=== PATIENT | female | born 1950 | race Caucasian/White ===

== ENCOUNTER 2021-08-30 11:05 | Outpatient (CLI) | payer MEDICARE, SELFPAY ==
[2021-08-30] MEDS: TETRACAINE 0.5% OPHTH 1 DROP EYE-RIGHT ×2 (11:16→11:43)
[2021-08-30] MEDS: BRIMONIDINE TARTRATE 0.2% OPHTH 1 DROP EYE-RIGHT ×2 (11:18→12:00)
[2021-08-30 11:23] VITALS: BP 138/68; RESP 16; O2SAT 97
--- NOTE | 2021-08-30 12:31 | P.PCN_ITS ---
Procedure Note Will [facility] bill your pro fee for this procedure?: Yes Procedure Description: SURGEON: Katja Gunter MD PREOPERATIVE DIAGNOSIS: Posterior capsular opacity, right eye POSTOPERATIVE DIAGNOSIS: Posterior capsular opacity, right eye PROCEDURE: YAG laser capsulotomy, right eye ANESTHESIA: Topical. ESTIMATED BLOOD LOSS: None PATHOLOGY SPECIMEN: None COMPLICATIONS: None INDICATIONS: See consult note for details. The risks, benefits and alternatives of the procedure were explained to the patient, who elected to proceed and signed informed consent to do so. PROCEDURE: The patient was brought to the pre-holding area where the right eye was identified as the operative eye. I placed my initials above this eye. The patient received 2 sets of 1 drop of 0.5% tetracaine and 1 drop of 1% tropicamide. They also received 1 drop of 0.2% brimonidine. They received 1 drop of 0.5% tetracaine immediately prior to bringing them back for the procedure. The patient was then brought to the procedure room where the right eye was again identified as the operative eye. A YAG Joel capsulotomy lens was placed on the eye. The laser was administered using a total number of 9 shots with an energy of 2.4 mJ per shot for a total energy of 22 mJ. The patient tolerated the procedure well. DISPOSITION: The patient was taken back to the pre-holding area and given 1 drop of 0.2% brimonidine in the right eye. They were discharged to home in stable condition. The patient was instructed to call me or go to the emergency department with any sudden change, including dramatic loss of vision, severe pain in the eye or eyebrow region, nausea, or vomiting. The patient was instructed to use the 0.2% brimonidine 1 drop 2 times a day in the right eye for 1 week. The patient will follow up in the clinic in 1-2 weeks. Surgeon: Katja Gunter MD
== END 2021-08-30 12:07 | disposition home or self-care (01) ==
LOC: OP CLINIC 11:05 → EYE PRC 11:09
PROVIDERS: PCP Family Medicine; Visit Provider Ophthalmology
DX: H26.9 Unspecified cataract (principal)
CPT/HCPCS: 66821; A9270

== ENCOUNTER 2021-09-14 01:21 | Inpatient (IN) | payer MEDICARE, SELFPAY ==
[2021-09-14] VITALS (22 sets, daily range): BP systolic 97–153; BP diastolic 35–87; PULSE 63–92; RESP 10–26; TEMP 36.3–38.3; O2SAT 88–98; BMI 32.4; BMI 33.6
--- NOTE | 2021-09-14 01:44 | ED_ITS ---
HPI - Chest Pain General Time Seen by Provider: 14:00 <Annmarie Ac MD - Last Filed: 09/14/21 06:39> Date Seen: 09/14/21 <Annmarie Ac MD - Last Filed: 09/14/21 06:39> Chief Complaint: Chest Pain <Annmarie Ac MD - Last Filed: 09/14/21 06:39> Stated Complaint: Burning sensation in chest <Annmarie Ac MD - Last Filed: 09/14/21 06:39> Time Seen by Provider: 09/14/21 01:27 <Annmarie Ac MD - Last Filed: 09/14/21 06:39> Source: patient, RN notes reviewed and old records reviewed <Annmarie carey MD - Last Filed: 09/14/21 06:39> Mode of arrival: ambulatory <Annmarie Ac MD - Last Filed: 09/14/21 06:39> Limitations: no limitations <Annmarie Ac MD - Last Filed: 09/14/21 06:39> History of Present Illness HPI narrative: Patient is a 71-year-old female accompanied by her coming in with chest discomfort as well as a multitude of somatic symptoms. She started feeling ill on Saturday, has had fevers up to 102 and 103. Her notes the seem to fluctuate mom go down to 99. They have been using some Tylenol and aspirin to help control the fever. She has not had any recent Tylenol. Denies any abdominal pain but has had nausea and vomiting and diarrhea, nonbloody. No urinary symptoms. Has had some mild cough, some congestion, some headache, some sore throat. What is most problematic is severe body aches. She states they were just debilitating in hurting everywhere. Today she has had a sense of burning chest pain. It is just burning throughout her chest. No prior cardiac issues. She was seen in our ER on 02/23/2021 for some chest discomfort. She does not believe she followed up for stress test. She has never had a diagnosis of a cardiac condition prior. She has a maternal grandfather that had a heart attack when he was 70 but no other known relatives with coronary artery disease in the family. There is reportedly a brother with mental health issues. She has not had COVID yet. She reports she has had routine COVID vaccination and both boosters. <Annmarie Ac MD - Last Filed: 09/14/21 06:39> MD complaint: chest discomfort <Annmarie Ac MD - Last Filed: 09/14/21 06:39> Onset (ago): hour(s) <Annmarie Ac MD - Last Filed: 09/14/21 06:39> Timing of current episode: constant <Annmarie Ac MD - Last Filed: 09/14/21 06:39> Treatment prior to arrival: aspirin <Annmarie Ac MD - Last Filed: 09/14/21 06:39> Related Data On Oral Contraceptives: No <Annmarie Ac MD - Last Filed: 09/14/21 06:39> Home Medications: Home Medications Medication Instructions Recorded Confirmed bromfenac 0.07 % eye drops 1 drp OPHTHALMIC (EYE) DAILY 09/14/21 09/14/21 (Prolensa) oxybutynin chloride 10 mg 10 mg PO DAILY 09/14/21 09/14/21 tablet,extended release 24 hr paroxetine HCl 20 mg PO DAILY 09/14/21 09/14/21 propranolol 10 mg tablet 10 mg PO DAILY 09/14/21 09/14/21 tolterodine 4 mg capsule,extended 4 mg PO DAILY 09/14/21 09/14/21 release 24 hr trazodone 50 mg tablet 50 mg PO HS 09/14/21 09/14/21 <Annmarie Ac MD - Last Filed: 09/14/21 06:39> Allergies/Adverse Reactions: Allergies Allergy/AdvReac Type Severity Reaction Status Date / Time No Known Allergies Allergy Verified 09/14/21 01:35 <Annmarie Ac MD - Last Filed: 09/14/21 06:39> Review of Systems Status of ROS Reports: 10 or more systems reviewed and unremarkable except as noted in History and below <Annmarie Ac MD - Last Filed: 09/14/21 06:39> [facility] Medical History: Medical History (Updated 09/14/21 @ 03:47 by Annmarie Ac MD) Anxiety Spontaneous pneumothorax <Annmarie Ac MD - Last Filed: 09/14/21 06:39> Surgical History: Surgical History (Updated 09/14/21 @ 01:47 by Annmarie Ac MD) History of tonsillectomy <Annmarie Ac MD - Last Filed: 09/14/21 06:39> Social History: Social History Smoking Status: Never smoker Do you use any of these nicotine containing products: None How often do you have a drink containing alcohol: never How often do you have six or more drinks on one occasion: Never AUDIT-C Alcohol total score: 0 Non-prescribed substance use: denies use <Annmarie Ac MD - Last Filed: 09/14/21 06:39> Exam Const Vital Signs, click to edit/add: Vital Signs - 24 hr 09/14/21 01:32 09/14/21 03:00 09/14/21 05:02 Temperature 97.8 F 99.6 F 99.6 F Pulse Rate [Left Pulse Oximeter] 89 85 Respiratory Rate 20 16 Blood Pressure [Left Upper Arm] 147/79 H 135/78 Pulse Oximetry 98 95 09/14/21 05:08 09/14/21 06:00 09/14/21 07:00 Temperature Pulse Rate [Left Pulse Oximeter] 79 66 Respiratory Rate 16 16 Blood Pressure [Left Upper Arm] 111/78 97/35 L Pulse Oximetry 93 93 98 09/14/21 07:47 Temperature 97.3 F L Pulse Rate [Left Pulse Oximeter] 79 Respiratory Rate 18 Blood Pressure [Left Upper Arm] 100/81 Pulse Oximetry 94 <Annmarie Ac MD - Last Filed: 09/14/21 06:39> Documenting provider has reviewed patient's vital signs: yes (Oral temperature is 99.4? F) <Annmarie Ac MD - Last Filed: 09/14/21 06:39> Common normals: no apparent distress, average body habitus, oriented x3, no limitations, healthy appearing, alert and well nourished <Annmarie Ac MD - Last Filed: 09/14/21 06:39> General appearance: cooperative, well kempt, in distress mild and other (States she is cold, looks like she does not feel well) <Annmarie Ac MD - Last Filed: 09/14/21 06:39> Nutritional appearance: overweight <Annmarie Ac MD - Last Filed: 09/14/21 06:39> HENOH Common normals: normocephalic, head/scalp atraumatic, hearing grossly normal bilaterally, external ears normal, external nose normal, nasal mucous membranes and turbinates normal, moist oral mucous membranes, oropharynx normal and dentition normal <Annmarie Ac MD - Last Filed: 09/14/21 06:39> Head and scalp: normocephalic and atraumatic <Annmarie Ac MD - Last Filed: 09/14/21 06:39> Nose: external nose normal and nasal mucous membranes and turbinates normal <Annmarie Ac MD - Last Filed: 09/14/21 06:39> External ear: external ears normal <Annmarie Ac MD - Last Filed: 09/14/21 06:39> Eye Common normals: PERRL, EOMs intact bilaterally, conjunctivae normal and no scleral icterus <Annmarie Ac MD - Last Filed: 09/14/21 06:39> Conjunctiva: conjunctiva(e) normal <Annmarie Ac MD - Last Filed: 09/14/21 06:39> Pupil: PERRL <Annmarie Ac MD - Last Filed: 09/14/21 06:39> Neck & C-Spine Common normals: full ROM, no lymphadenopathy, supple, no meningeal signs, no JVD and thyroid normal <MD Jovanny Estrada Last Filed: 09/14/21 06:39> Thyroid: thyroid normal <Annmarie Ac MD - Last Filed: 09/14/21 06:39> Chest Common normals: inspection of chest normal <Annmarie Ac MD - Last Filed: 09/14/21 06:39> Resp Common normals: normal respiratory effort, no retractions, no use of accessory muscles and clear to auscultation bilaterally <Annmarie Ac MD - Last Filed: 09/14/21 06:39> Auscultation: clear to auscultation bilaterally <Annmarie Ac MD - Last Filed: 09/14/21 06:39> Cardio Common normals: no JVD, regular rate, regular rhythm, S1 normal heart sound, S2 normal heart sound, no gallops, no clicks and no murmurs <Annmarie Ac MD - Last Filed: 09/14/21 06:39> Rate: regular rate <Annmarie Ac MD - Last Filed: 09/14/21 06:39> Rhythm: regular rhythm <Annmarie Ac MD - Last Filed: 09/14/21 06:39> Heart sounds: S1 normal and S2 normal <Annmarie Ac MD - Last Filed: 09/14/21 06:39> GI Common normals: Normal to inspection, nondistended, normoactive bowel sounds present, soft to palpation, non-tender, no hepatosplenomegaly and no masses <Annmarie Hoang MD - Last Filed: 09/14/21 06:39> Palpation: soft and no hepatosplenomegaly <Annmarie Ac MD - Last Filed: 09/14/21 06:39> Extremity Common normals: normal to inspection, full ROM, normal capillary refill, no joint enlargement, no clubbing, cyanosis or edema, no calf tenderness and no pedal edema <Annmarie Ac MD - Last Filed: 09/14/21 06:39> Neuro Common normals: oriented x3 <Annmarie Ac MD - Last Filed: 09/14/21 06:39> Sensorium/orientation: alert <Annmarie Ac MD - Last Filed: 09/14/21 06:39> Meningeal signs: no meningeal signs <Annmarie Ac MD - Last Filed: 09/14/21 06:39> Psych Appearance: well kempt <Annmarie Ac MD - Last Filed: 09/14/21 06:39> Skin Common normals: no rashes or lesions noted <Annmarie Ac MD - Last Filed: 09/14/21 06:39> General skin exam: no rashes or lesions noted <Annmarie Ac MD - Last Filed: 09/14/21 06:39> Course Course Hospital Course: Will have patient on cardiac monitoring, pulse oximetry, obtain baseline EKG and appropriate labs. Does sound that this is in the context of an illness, possibly COVID. We will do COVID and influenza testing. Start with a portable chest x-ray. I will do a D-dimer. She has not had Tylenol recently and she does have a low-grade temperature and is obviously chilling. I have ordered 1000 mg oral Tylenol. With the burning chest symptoms in the context of an illness, makes this there radical ED less likely to be an acute coronary symptom Carlos Alberto. Will hopefully have her EKG shortly to ensure no significant changes, obviously will be getting a troponin. I do wonder about COVID with her complaints of significant myalgias. <Annmarie Ac MD - Last Filed: 09/14/21 06:39> Reevaluation(s) Reevaluation #1: Her D-dimer has come back significantly elevated. I will be cancelling her portable chest x-ray which has not been done yet. She will be going for chest CT PE protocol. <Annmarie Ac MD - Last Filed: 09/14/21 06:39> Time: 02:28 <Annmarie Ac MD - Last Filed: 09/14/21 06:39> Reevaluation #2: Reviewed with patient and her the CT findings. We have collected a urine and and sent it for urinalysis and culture. It looks like she may have a urinary system infection with pyelonephritis, infectious pyelitis. We reviewed the right pulmonary findings. This was the side that she had had a spontaneous pneumothorax on and she states they did something dipstick the lung backup. I am wondering if this is a pleurodesis. I did speak with the radiologist after this may still do recommend outpatient follow-up or review of prior imaging studies. We have reviewed her elevated troponin. She has another 1 that is pending in about an hour. I am ordering IV fluids and Rocephin for her. Unfortunately, there are no hospital beds elsewhere. In a perfect situation we would likely send her for hospitalization where she could have Car diology consultation. We have checked for the admission just prior to her and there are absolutely no floor care beds anywhere in the surrounding areas. I do not think that her situation is diarrhea enough that she needs to be transferred out of state or any lengths such as up to [place]. She is more comfortable after the Tylenol. She and her understand and are in agreement with the plan. We at this time do not have any capacity for hospitalization but there will be discharged this morning. Thus, patient will reside with us in the ER and tell we can have her transferred or admitted to our hospital depending on her status at that time. <Annmarie Ac MD - Last Filed: 09/14/21 06:39> Time: 03:41 <Annmarie Ac MD - Last Filed: 09/14/21 06:39> Reevaluation #3: Patient was just up to the bathroom, had been sleeping all this time prior. She is feeling better, has no chest pain, no body aches at this time. Her troponin at 4:45 a.m. was stable, at 2 0.7, her initial was 0.26. This should be trended. We will get an updated EKG now as she is awake. EKG dated 08/07 3:00 a.m. showing sinus rhythm, 74 beats per minute note QT corrected is 515 milliseconds. No acute ischemia or infarct noted. <Annmarie Ac MD - Last Filed: 09/14/21 06:39> Time: 06:25 <Annmarie Ac MD - Last Filed: 09/14/21 06:39> Vital Signs Vital signs: Initial Vital Signs Temperature 97.8 F 09/14/21 01:32 Temperature Source Temporal Artery Scan 09/14/21 01:32 Pulse Rate 89 09/14/21 01:32 Pulse Rhythm 09/14/21 01:32 Respiratory Rate 20 09/14/21 01:32 Blood Pressure 147/79 H 09/14/21 01:32 Blood Pressure Mean 101 09/14/21 01:32 Blood Pressure Position Supine 09/14/21 01:32 Pulse Oximetry 98 09/14/21 01:32 Oxygen Delivery Method 09/14/21 01:32 Vital Signs Temperature 97.8 F 09/14/21 01:32 Pulse Rate 89 09/14/21 01:32 Respiratory Rate 20 09/14/21 01:32 Blood Pressure 147/79 H 09/14/21 01:32 Pulse Oximetry 98 09/14/21 01:32 Temperature 97.3 F L 09/14/21 07:47 Pulse Rate 79 09/14/21 07:47 Respiratory Rate 18 09/14/21 07:47 Blood Pressure 100/81 09/14/21 07:47 Pulse Oximetry 94 09/14/21 07:47 <Annmarie Ac MD - Last Filed: 09/14/21 06:39> MDM - Chest Pain Lab Data Attestation: I reviewed the patient's lab results. <Annmarie Ac MD - Last Filed: 09/14/21 06:39> Labs: Lab Results 09/14/21 09/14/21 09/14/21 Range/Units 01:45 01:45 01:45 WBC 10.96 (4.50-11.00) K/uL RBC 4.40 (4.00-5.20) m/uL Hgb 13.0 (12.0-16.0) gm/dL Hct 38.2 (33.0-51.0) % MCV 87 (80-100) fL MCH 30 (26-34) pg MCHC 34 (32-36) gm/dL RDW Coeff of Ha 13.1 (11.5-15.5) % Plt Count 199 (140-440) K/uL Neut % (Auto) 84.5 H (42.0-72.0) % Lymph % (Auto) 8.5 L (20-44) % [place] % (Auto) 6.7 (0.0-11.0) % Eos % (Auto) 0.0 (0.0-7.0) % Baso % (Auto) 0.1 (0.0-3.0) % Neut # (Auto) 9.30 H (1.7-7.0) K/uL Lymph # (Auto) 0.90 (0.90-2.90) K/uL [place] # (Auto) 0.70 (0.00-0.90) K/UL Eos # (Auto) 0.00 (0.00-0.50) K/uL Baso # (Auto) 0.01 (0.00-0.30) K/uL Abs Immat Gran (auto) 0.02 (0.00-0.30) K/uL D-Dimer Quant (PE/DVT) 2.72 H (0.00-0.50) ug/ml Sodium 136 (135-149) mmol/L Potassium 4.0 (3.6-5.1) mmol/L Chloride 104 (96-114) mmol/L Carbon Dioxide 22 (20-32) mmol/L BUN 16 (7-30) mg/dL Creatinine 0.9 (0.5-1.5) mg/dL Estimated Creat Clear 49.00 Estimated GFR 69 ml/min Glucose 143 H (60-115) mg/dL Lactate (0.5-1.9) mmol/L Calcium 8.9 (8.4-10.6) mg/dL Magnesium 2.0 (1.5-2.6) mg/dL Total Bilirubin 1.6 H (0.1-1.5) mg/dL AST 67 H (12-35) U/L ALT 64 H (4-35) U/L Alkaline Phosphatase 83 (40-150) U/L Troponin I 0.26 H* (0.01-0.04) ng/mL C-Reactive Protein 25.5 H (0.5-1.0) mg/dL NT-Pro-B Natriuret Pep 3380 H (0-125) PG/mL Total Protein 7.1 (6.0-8.3) g/dL Albumin 3.9 (3.3-5.0) g/dL Lipase 33 (23-300) U/L Urine Color (Yellow) Urine Appearance (Clear) Urine pH (5.0-8.5) Ur Specific Mousie (1.000-1.030) Urine Protein (Negative) Urine Glucose (UA) (Negative) Urine Ketones (Negative) Urine Blood (Negative) Urine Nitrite (Negative) Urine Bilirubin (Negative) Urine Urobilinogen (0.2-1.0) Ur Leukocyte Esterase (Negative) Urine RBC (0-2) Urine WBC (0-5) Ur Squamous Epith Cells (None-Few) Amorphous Sediment (None) Urine Bacteria (None) Urine Mucus (None) SARS-CoV-2 (PCR) (Negative) Influenza Type A (PCR) (Negative) Influenza Type B (PCR) (Negative) 09/14/21 09/14/21 09/14/21 Range/Units 01:45 01:45 03:25 WBC (4.50-11.00) K/uL RBC (4.00-5.20) m/uL Hgb (12.0-16.0) gm/dL Hct (33.0-51.0) % MCV (80-100) fL MCH (26-34) pg MCHC (32-36) gm/dL RDW Coeff of Ha (11.5-15.5) % Plt Count (140-440) K/uL Neut % (Auto) (42.0-72.0) % Lymph % (Auto) (20-44) % [place] % (Auto) (0.0-11.0) % Eos % (Auto) (0.0-7.0) % Baso % (Auto) (0.0-3.0) % Neut # (Auto) (1.7-7.0) K/uL Lymph # (Auto) (0.90-2.90) K/uL [place] # (Auto) (0.00-0.90) K/UL Eos # (Auto) (0.00-0.50) K/uL Baso # (Auto) (0.00-0.30) K/uL Abs Immat Gran (auto) (0.00-0.30) K/uL D-Dimer Quant (PE/DVT) (0.00-0.50) ug/ml Sodium (135-149) mmol/L Potassium (3.6-5.1) mmol/L Chloride (96-114) mmol/L Carbon Dioxide (20-32) mmol/L BUN (7-30) mg/dL Creatinine (0.5-1.5) mg/dL Estimated Creat Clear Estimated GFR ml/min Glucose (60-115) mg/dL Lactate 1.3 (0.5-1.9) mmol/L Calcium (8.4-10.6) mg/dL Magnesium (1.5-2.6) mg/dL Total Bilirubin (0.1-1.5) mg/dL AST (12-35) U/L ALT (4-35) U/L Alkaline Phosphatase (40-150) U/L Troponin I (0.01-0.04) ng/mL C-Reactive Protein (0.5-1.0) mg/dL NT-Pro-B Natriuret Pep (0-125) PG/mL Total Protein (6.0-8.3) g/dL Albumin (3.3-5.0) g/dL Lipase (23-300) U/L Urine Color Yellow (Yellow) Urine Appearance Cloudy A (Clear) Urine pH 5.5 (5.0-8.5) Ur Specific M[place]ie <= 1.005 (1.000-1.030) Urine Protein 2+ A (Negative) Urine Glucose (UA) Negative (Negative) Urine Ketones 2+ A (Negative) Urine Blood 2+ A (Negative) Urine Nitrite Positive A (Negative) Urine Bilirubin Negative (Negative) Urine Urobilinogen 0.2 (0.2-1.0) Ur Leukocyte Esterase 1+ A (Negative) Urine RBC 2-5 A (0-2) Urine WBC 5-10 A (0-5) Ur Squamous Epith Cells Moderate A (None-Few) Amorphous Sediment Few A (None) Urine Bacteria Moderate A (None) Urine Mucus Few A (None) SARS-CoV-2 (PCR) Negative SARS-CoV-2 (Negative) Influenza Type A (PCR) Negative PCR FLU A (Negative) Influenza Type B (PCR) Negative PCR FLU B (Negative) 09/14/21 Range/Units 04:50 WBC (4.50-11.00) K/uL RBC (4.00-5.20) m/uL Hgb (12.0-16.0) gm/dL Hct (33.0-51.0) % MCV (80-100) fL MCH (26-34) pg MCHC (32-36) gm/dL RDW Coeff of Ha (11.5-15.5) % Plt Count (140-440) K/uL Neut % (Auto) (42.0-72.0) % Lymph % (Auto) (20-44) % [place] % (Auto) (0.0-11.0) % Eos % (Auto) (0.0-7.0) % Baso % (Auto) (0.0-3.0) % Neut # (Auto) (1.7-7.0) K/uL Lymph # (Auto) (0.90-2.90) K/uL [place] # (Auto) (0.00-0.90) K/UL Eos # (Auto) (0.00-0.50) K/uL Baso # (Auto) (0.00-0.30) K/uL Abs Immat Gran (auto) (0.00-0.30) K/uL D-Dimer Quant (PE/DVT) (0.00-0.50) ug/ml Sodium (135-149) mmol/L Potassium (3.6-5.1) mmol/L Chloride (96-114) mmol/L Carbon Dioxide (20-32) mmol/L BUN (7-30) mg/dL Creatinine (0.5-1.5) mg/dL Estimated Creat Clear Estimated GFR ml/min Glucose (60-115) mg/dL Lactate (0.5-1.9) mmol/L Calcium (8.4-10.6) mg/dL Magnesium (1.5-2.6) mg/dL Total Bilirubin (0.1-1.5) mg/dL AST (12-35) U/L ALT (4-35) U/L Alkaline Phosphatase (40-150) U/L Troponin I 0.27 H* (0.01-0.04) ng/mL C-Reactive Protein (0.5-1.0) mg/dL NT-Pro-B Natriuret Pep (0-125) PG/mL Total Protein (6.0-8.3) g/dL Albumin (3.3-5.0) g/dL Lipase (23-300) U/L Urine Color (Yellow) Urine Appearance (Clear) Urine pH (5.0-8.5) Ur Specific [place] (1.000-1.030) Urine Protein (Negative) Urine Glucose (UA) (Negative) Urine Ketones (Negative) Urine Blood (Negative) Urine Nitrite (Negative) Urine Bilirubin (Negative) Urine Urobilinogen (0.2-1.0) Ur Leukocyte Esterase (Negative) Urine RBC (0-2) Urine WBC (0-5) Ur Squamous Epith Cells (None-Few) Amorphous Sediment (None) Urine Bacteria (None) Urine Mucus (None) SARS-CoV-2 (PCR) (Negative) Influenza Type A (PCR) (Negative) Influenza Type B (PCR) (Negative) <Annmarie Ac MD - Last Filed: 09/14/21 06:39> Imaging Data CT Chest/Ab/Pelvis: Attestation: I have reviewed the pertinent imaging results. <Annmarie Hoang MD - Last Filed: 09/14/21 06:39> Radiologist's impression: Patient: ELIZABETH REY Facility: [facility] Site . Site : [id number] Study: CT Chest/Abd/Pelvis PE/A/P W/-09/14/2021 2:58:59 AM Ordering Physician: Osorio Anguiano Final Report: INDICATION: Chest discomfort, elevated D-dimer, nausea, vomiting TECHNIQUE: CT chest was performed with pulmonary angiographic technique. Subsequently, CT abdomen and pelvis with i.v. contrast during the venous phase. Coronal and sagittal reformats were obtained. CONTRAST: 95 mL Isovue 370 COMPARISON: None FINDINGS: The sensitivity and specificity of the exam are severely limited by beam hardening artifacts from scanning with the arms folded over the patient`s abdomen and motion artifacts and the patient`s inability to maintain a breath hold. CHEST: Cardiovascular: The heart has an unremarkable appearance and size. No CT identified pulmonary emboli are seen. The pulmonary arteries are unremarkable in appearance. Aneurysmal enlargement of the aortic arch and ascending aorta are present measuring 3.6 cm and 4 cm respectively. Mediastinum: No mass or adenopathy seen. Lung: Linear scarring is noted in the right upper lobe. Pleura and pericardium: Nodularity of the right pleura is present with the largest enhancing pleural nodules seen measuring 1.9 cm. Trace left pleural effusion is noted. No significant pericardial effusion is present. Chest wall and axilla: No mass or adenopathy seen. Bone: Unremarkable for age. No acute osseous injuries seen. ABDOMEN/PELVIS: Liver: Unremarkable. Spleen: Unremarkable. Pancreas: Unremarkable. Gallbladder: Unremarkable. Kidney: Bilateral renal cysts are present measuring up to 2 cm. Mild thickening and enhancement of the left renal pelvis urothelium is seen. There is subtle areas of decreased cortical enhancement seen in the right kidney. Adrenal: Unremarkable. Bowel: Unremarkable. The appendix is not identified. Vascular: Moderate diffuse atherosclerotic calcifications of the abdominal aorta and its tributaries are present. Lymph: Unremarkable. Peritoneum: Unremarkable. No pneumoperitoneum is seen. No significant ascites is noted. Pelvis: Small fat containing bilateral inguinal hernias are present. Soft tissue: Unremarkable. Bone: Unremarkable for age. No acute osseous injuries seen. IMPRESSIONS: 1. No CT evidence of pulmonary embolism seen. 2. Aneurysmal enlargement of the aortic arch and ascending aorta are present measuring 3.6 cm and 4 cm respectively. 3. Nodularity of the right pleura is present with the largest enhancing pleural nodules seen measuring 1.9 cm. Correlation with clinical history of biopsy is recommended to exclude pleural metastases. 4. Mild thickening and enhancement of the left renal pelvis urothelium is seen. There is subtle areas of decreased cortical enhancement seen in the right kidney. Findings may be due to pyelonephritis and infectious pyelitis. 5. Trace left pleural effusion is noted. Dictated by Darion Kimbrough MD @ 09/14/2021 3:16:08 AM Please note that all CT scans at this facility use dose modulation, iterative reconstruction, and/or weight-based dosing when appropriate to reduce radiation dose to as low as reasonably achievable. Dictated by: Darion Kimbrough MD @ 09/14/2021 03:16:11 (Electronic Signature) <Annmarie Ac MD - Last Filed: 09/14/21 06:39> ECG Data Attestation: I personally reviewed and interpreted this ECG as follows: (Sinus rhythm, 83 beats per minute, sinus arrhythmia) <Annmarie Ac MD - Last Filed: 09/14/21 06:39> ECG interpretation date: 09/14/21 <Annmarie Ac MD - Last Filed: 09/14/21 06:39> ECG interpretation time: 01:45 <Annmarie Ac MD - Last Filed: 09/14/21 06:39> Critical Care Time Critical Care Time Critical Care Time: No <Annmarie Ac MD - Last Filed: 09/14/21 06:39> Discharge Plan Discharge Clinical Impression: Acute pyelonephritis, Chest pain, Acute pyelitis, Elevated troponin <Annmarie Ac MD - Last Filed: 09/14/21 06:39> Prescriptions: No Action trazodone 50 mg tablet 50 mg PO HS 0RF oxybutynin chloride 10 mg tablet extended release 24 hr 10 mg PO DAILY 0RF propranolol 10 mg tablet 10 mg PO DAILY 0RF Label Comments: TAKE 1-2 TABLETS BY MOUTH DAILY NEEDED FOR PERFORMANCE ANXIETY Prolensa 0.07 % drops 1 drp OPHTHALMIC (EYE) DAILY 0RF Label Comments: Instill 1 drop Right Eye once a day paroxetine HCl 20 mg PO DAILY 0RF tolterodine 4 mg capsule,extended release 24hr 4 mg PO DAILY 0RF <Annmarie Ac MD - Last Filed: 09/14/21 06:39> Follow Up/Referrals: Iris Brantley DO [Primary Care Provider] - <Annmarie Ac MD - Last Filed: 09/14/21 06:39>
[2021-09-14 01:47] LABS: Lactate* 1.3 mmol/L (0.5-1.9)
[2021-09-14 01:49] LABS: Basophils Absolute Auto 0.01 K/uL (0.00-0.30); Basophils Percent Auto 0.1 % (0.0-3.0); Hematocrit 38.2 % (33.0-51.0); Immature Granulocytes Abs Auto 0.02 K/uL (0.00-0.30); Lymphocytes Percent Auto 8.5 % (20-44); Mean Corpuscular HGB Conc 34 gm/dL (32-36); Mean Corpuscular Hemoglobin 30 pg (26-34); Mean Corpuscular Volume 87 fL (80-100); Monocytes Percent Auto 6.7 % (0.0-11.0); Neutrophils Percent Auto 84.5 % (42.0-72.0); Platelet Count* 199 K/uL (140-440); RDW Coefficient of Variation % 13.1 % (11.5-15.5); White Blood Count* 10.96 K/uL (4.50-11.00)
[2021-09-14 01:51] LABS: Slide Review Reflex No
[2021-09-14 02:02] LABS: Chloride* 104 mmol/L (96-114); Sodium* 136 mmol/L (135-149)
[2021-09-14 02:03] LABS: Albumin* 3.9 g/dL (3.3-5.0)
[2021-09-14 02:06] LABS: Alanine Aminotransferase* 64 U/L (4-35); Alkaline Phosphatase* 83 U/L (40-150); Aspartate Amino Transferase* 67 U/L (12-35); Bilirubin Total* 1.6 mg/dL (0.1-1.5); Blood Urea Nitrogen* 16 mg/dL (7-30); Calcium* 8.9 mg/dL (8.4-10.6); Carbon Dioxide* 22 mmol/L (20-32); Creatinine* 0.9 mg/dL (0.5-1.5); Estimated Glomerular Filt Rate 69 ml/min; Glucose* 143 mg/dL (60-115); Lipase* 33 U/L (23-300); Total Protein* 7.1 g/dL (6.0-8.3)
[2021-09-14 02:07] LABS: D Dimer Quantitative* 2.72 ug/ml (0.00-0.50)
--- NOTE | 2021-09-14 02:19 | CRLHL7_ITS ---
For Patients: As a result of the 21st Century Cures Act, medical imaging exams and procedure reports are released immediately into your electronic medical record. You may view this report before your referring provider. If you have questions, please contact your health care provider. INDICATION: Chest discomfort, elevated D-dimer, nausea, vomiting TECHNIQUE: CT chest was performed with pulmonary angiographic technique. Subsequently, CT abdomen and pelvis with i.v. contrast during the venous phase. Coronal and sagittal reformats were obtained. CONTRAST: 95 mL Isovue 370 COMPARISON: None FINDINGS: The sensitivity and specificity of the exam are severely limited by beam hardening artifacts from scanning with the arms folded over the patient`s abdomen and motion artifacts and the patient`s inability to maintain a breath hold. CHEST: Cardiovascular: The heart has an unremarkable appearance and size. No CT identified pulmonary emboli are seen. The pulmonary arteries are unremarkable in appearance. Aneurysmal enlargement of the aortic arch and ascending aorta are present measuring 3.6 cm and 4 cm respectively. Mediastinum: No mass or adenopathy seen. Lung: Linear scarring is noted in the right upper lobe. Pleura and pericardium: Nodularity of the right pleura is present with the largest enhancing pleural nodules seen measuring 1.9 cm. Trace left pleural effusion is noted. No significant pericardial effusion is present. Chest wall and axilla: No mass or adenopathy seen. Bone: Unremarkable for age. No acute osseous injuries seen. ABDOMEN/PELVIS: Liver: Unremarkable. Spleen: Unremarkable. Pancreas: Unremarkable. Gallbladder: Unremarkable. Kidney: Bilateral renal cysts are present measuring up to 2 cm. Mild thickening and enhancement of the left renal pelvis urothelium is seen. There is subtle areas of decreased cortical enhancement seen in the right kidney. Adrenal: Unremarkable. Bowel: Unremarkable. The appendix is not identified. Vascular: Moderate diffuse atherosclerotic calcifications of the abdominal aorta and its tributaries are present. Lymph: Unremarkable. Peritoneum: Unremarkable. No pneumoperitoneum is seen. No significant ascites is noted. Pelvis: Small fat containing bilateral inguinal hernias are present. Soft tissue: Unremarkable. Bone: Unremarkable for age. No acute osseous injuries seen. IMPRESSIONS: 1. No CT evidence of pulmonary embolism seen. 2. Aneurysmal enlargement of the aortic arch and ascending aorta are present measuring 3.6 cm and 4 cm respectively. 3. Nodularity of the right pleura is present with the largest enhancing pleural nodules seen measuring 1.9 cm. Correlation with clinical history of biopsy is recommended to exclude pleural metastases. 4. Mild thickening and enhancement of the left renal pelvis urothelium is seen. There is subtle areas of decreased cortical enhancement seen in the right kidney. Findings may be due to pyelonephritis and infectious pyelitis. 5. Trace left pleural effusion is noted. Dictated by Darion Kimbrough MD @ 09/14/2021 3:16:08 AM Please note that all CT scans at this facility use dose modulation, iterative reconstruction, and/or weight-based dosing when appropriate to reduce radiation dose to as low as reasonably achievable. Dictated by: Darion Kimbrough MD @ 09/14/2021 03:16:11 (Electronically Signed)
[2021-09-14 02:20] LABS: NT Pro B Type NatriureticPept* 3380 PG/mL (0-125)
[2021-09-14 02:21] LABS: C Reactive Protein* 25.5 mg/dL (0.5-1.0)
[2021-09-14 02:27] LABS: PCR FLU A Negative PCR FLU A (Negative); PCR FLU B Negative PCR FLU B (Negative)
[2021-09-14 02:28] LABS: SARS PCR* Negative SARS-CoV-2 (Negative)
[2021-09-14 02:30] LABS: Troponin I* 0.26 ng/mL (0.01-0.04)
[2021-09-14] MEDS: ACETAMINOPHEN 500 MG TABLET 1000 MG PO ×2 (03:00→09:33)
[2021-09-14 03:36] LABS: Appearance Urine Cloudy (Clear); Bilirubin Urine Negative (Negative); Blood Urine 2+ (Negative); Color Urine Yellow (Yellow); Glucose Urine Negative (Negative); Ketones Urine 2+ (Negative); Leukocyte Esterase Urine 1+ (Negative); Nitrite Urine Positive (Negative); Protein Urine 2+ (Negative); Specific Gravity Urine <= 1.005 (1.000-1.030); Urobilinogen Urine 0.2 (0.2-1.0); pH Urine 5.5 (5.0-8.5)
[2021-09-14 03:44] LABS: Amorphous Sediment Urine Few; Bacteria Urine Moderate; Mucus Urine Few; Squamous Epithelial Cell Urine Moderate (None-Few)
[2021-09-14] MEDS: 0.9 % SODIUM CH + KCL 20 mEq/L 1,000 ML 100 ML IV (03:48)
[2021-09-14] MEDS: cefTRIAXone 2 GM in 0.9 % SODIUM CHLORIDE Mini-bag 100 ML IVPB (03:48)
[2021-09-14 05:33] LABS: Troponin I* 0.27 ng/mL (0.01-0.04)
--- NOTE | 2021-09-14 07:46 | ED.NURSE ---
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 Up to restroom ambulatory, steadily. She denies pain, I'm just kind of achy. VSS. Patient declines offer for breakfast tray, but accepts an orange juice at this time. Warm blanket provided on request. She denies further needs at this time. Call light in reach. is leaving to run some errands, plans to return later this morning.
[2021-09-14 08:28] LABS: Lactate* 1.2 mmol/L (0.5-1.9)
[2021-09-14 09:11] LABS: Troponin I* 0.17 ng/mL (0.01-0.04)
--- NOTE | 2021-09-14 09:12 | ED.NURSE ---
Critical lab received: troponin 0.17. Dr. Ac informed.
--- NOTE | 2021-09-14 09:26 | ED.NURSE ---
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 Notes back pain aches but unable to rate. Patient skin hot to touch, oral temp 101. updated, to order tylenol.
--- NOTE | 2021-09-14 09:39 | ED.NURSE ---
Addendum entered by Flakito Mckeon RN 09/14/21 09:43: aware. Original Note: Pt vomited moderate amount of emesis immediately after taking 2 PO tylenol.
[2021-09-14] MEDS: ONDANSETRON 2 MG/ML inj 4 MG IVP (10:00)
--- NOTE | 2021-09-14 10:10 | ED.NURSE ---
Pt desatted down to 70's% O2 with good waveform on monitor. Pt stated she was not SOB, but RR was increased to around 30. O2 NC applied at 4L, pt back up to 96% with 4L O2.
--- NOTE | 2021-09-14 10:35 | ED.NURSE ---
Pt brought to the restroom by wheelchair. New linens on bed and gown applied to pt. Pt titrated down to 3L O2 NC, O2 in mid 90's%. notified.
--- NOTE | 2021-09-14 11:29 | W.PC.EDHO ---
Primary Language: Preferred Language: Orientation Status: [] Alert & Oriented [] Slight Confusion [] Known Dx Dementia Transfers By: [] Assist of 1 [] Assist of 2 [] Lift Active Medications Generic Name Dose Route Start Last Admin Trade Name Freq PRN Reason Stop Dose Admin Potassium Chloride/Sodium Chloride 1,000 mls @ 100 mls/hr 09/14/21 03:28 09/14/21 03:48 0.9 % Sodium Ch + Kcl 20 Meq/L IV 100 mls/hr .Q10H MARCY Administration Discontinued Medications Generic Name Dose Route Start Last Admin Trade Name Freq PRN Reason Stop Dose Admin Acetaminophen 1,000 mg 09/14/21 02:10 09/14/21 03:00 Acetaminophen 500 Mg Tablet PO 09/14/21 02:11 1,000 mg ONCE ONE Administration Acetaminophen 1,000 mg 09/14/21 09:21 09/14/21 09:33 Acetaminophen 500 Mg Tablet PO 09/14/21 09:22 1,000 mg ONCE ONE Administration Ceftriaxone Sodium 2 gm/ 100 mls @ 200 mls/hr 09/14/21 03:28 09/14/21 05:02 Sodium Chloride IVPB 09/14/21 03:29 Infused ONCE ONE Infusion Ondansetron HCl 4 mg 09/14/21 09:49 09/14/21 10:00 Ondansetron 2 Mg/Ml Inj IVP 09/14/21 09:50 4 mg ONCE ONE Administration Description of Symptoms ED Triage Present Problem chest pain/burning since saturday- pt states not Description improving and worsened tonight. 09/27. pt also fell sat and L ankle pain. Pain Pain Description [Medial Chest Burning,Tightness ] Pain Description Burning Pain Description Burning Pain Intensity [Medial Chest] 8 Pain Intensity 2 Pain Intensity 2 Pain Intensity 2 Pain Intensity 2 Pain Scale Used [Medial Chest] Numeric (1 - 10) Pain Scale Used Numeric (1 - 10) Pain Scale Used Numeric (1 - 10) Pain Scale Used Numeric (1 - 10) Pain Scale Used Numeric (1 - 10) Pain Scale Used Numeric (1 - 10) IV Insertion/Site Date of IV Line Insertion [ 09/14/21 Right Forearm] Oxygen Administration Pulse Oximetry 96 Pulse Oximetry 91 Pulse Oximetry 92 Pulse Oximetry 94 Pulse Oximetry 98 Pulse Oximetry 93 Pulse Oximetry 93 Pulse Oximetry 95 Pulse Oximetry 98 Oxygen Delivery Method Nasal Cannula Oxygen Delivery Method Room Air Oxygen Delivery Method Room Air Oxygen Delivery Method Room Air Oxygen Delivery Method Nasal Cannula Oxygen Delivery Method Nasal Cannula Oxygen Delivery Method Nasal Cannula Oxygen Delivery Method Room Air Oxygen Delivery Method Room Air Oxygen Flow Rate 4 Oxygen Flow Rate 2 Oxygen Flow Rate 2 Cardiac Monitoring EKG Method 12 Lead EKG Method 12 Lead EKG Method 12 Lead
--- NOTE | 2021-09-14 11:57 | ED.NURSE ---
Report called to [facility]. Pt brought to floor by supa sup.
--- NOTE | 2021-09-14 12:11 | ED_ITS ---
HPI - General Adult General Chief complaint: Chest Pain Stated complaint: Burning sensation in chest Time Seen by Provider: 09/14/21 01:27 Related Data Home Medications Medication Instructions Recorded Confirmed bromfenac 0.07 % eye drops 1 drp OPHTHALMIC (EYE) DAILY 09/14/21 09/14/21 (Prolensa) oxybutynin chloride 10 mg 10 mg PO DAILY 09/14/21 09/14/21 tablet,extended release 24 hr paroxetine HCl 20 mg tablet 20 mg PO DAILY 09/14/21 09/14/21 propranolol 10 mg tablet 10 mg PO DAILY 09/14/21 09/14/21 tolterodine 4 mg capsule,extended 4 mg PO DAILY 09/14/21 09/14/21 release 24 hr trazodone 50 mg tablet 50 mg PO HS 09/14/21 09/14/21 Previous Rx's Medication Instructions Recorded ciprofloxacin HCl 500 mg tablet 500 mg PO Q12H #14 tab 09/15/21 prednisone 20 mg tablet 20 mg PO DAILYWM #3 tab 09/15/21 Allergies Allergy/AdvReac Type Severity Reaction Status Date / Time No Known Allergies Allergy Verified 09/14/21 01:35 [facility] Medical History (Updated 09/15/21 @ 16:56 by Rianna Sharif MD) Anxiety Generalized body aches Pleural nodules Spontaneous pneumothorax Urinary urgency Surgical History History of cataract surgery History of tonsillectomy Family History (Updated 09/14/21 @ 13:54 by Brandon Dupree MD) Mother Frontotemporal dementia Father Dementia of the Alzheimer's type Brother Coronary artery disease Social History Highest level of school completed/degree received: Master's degree Smoking Status: Never smoker Do you use any of these nicotine containing products: None Second hand tobacco smoke exposure: No How often do you have a drink containing alcohol: never How often do you have six or more drinks on one occasion: Never AUDIT-C Alcohol total score: 0 Non-prescribed substance use: denies use Caffeine: Yes (diet coke) service: No Exam Const: Vital Signs, click to edit/add: Vital Signs - 24 hr 09/14/21 01:32 09/14/21 03:00 09/14/21 05:02 Temperature 97.8 F 99.6 F 99.6 F Pulse Rate [Left P ulse Oximeter] 89 85 Respiratory Rate 20 16 Blood Pressure [Le ft Upper Arm] 147/79 H 135/78 Pulse Oximetry 98 95 09/14/21 05:08 09/14/21 06:00 09/14/21 07:00 Temperature Pulse Rate [Left P ulse Oximeter] 79 66 Respiratory Rate 16 16 Blood Pressure [Le ft Upper Arm] 111/78 97/35 L Pulse Oximetry 93 93 98 09/14/21 07:47 09/14/21 08:00 09/14/21 09:00 Temperature 97.3 F L Pulse Rate [Left P ulse Oximeter] 79 76 90 Respiratory Rate 18 10 L 25 H Blood Pressure [Le ft Upper Arm] 100/81 128/75 145/82 H Pulse Oximetry 94 92 91 09/14/21 09:26 09/14/21 09:33 09/14/21 10:05 Temperature 101 F H 100.6 F H 101 F H Pulse Rate [Left P ulse Oximeter] 92 Respiratory Rate 25 H Blood Pressure [Le ft Upper Arm] 153/87 H Pulse Oximetry 96 09/14/21 10:30 09/14/21 11:00 09/14/21 11:30 Temperature Pulse Rate [Left P ulse Oximeter] 91 90 80 Respiratory Rate 13 26 H 12 Blood Pressure [Le ft Upper Arm] 140/71 H 122/56 L 98/50 L Pulse Oximetry 88 95 94 09/14/21 11:45 Temperature 97.5 F L Pulse Rate [Left P ulse Oximeter] 75 Respiratory Rate 26 H Blood Pressure [Le ft Upper Arm] 107/57 L Pulse Oximetry 94 Course Reevaluation(s) Reevaluation #3: I re-evaluated the patient after being told that her O2 sats dropped briefly to 70%. Patient denied any shortness of breath. She looked well at the time that I saw her although she was complaining of diffuse body aches. We did trying give her Tylenol for fever, but she had an episode of vomiting after that. I did give her Zofran and she had no further nausea or vomiting. At the time of my visit with her, she denied any chest pain or shortness of breath. She denied any abdominal or flank pain. She just had diffuse achiness. She did think that it would be nice have something for pain, so I gave her 4 mg of morphine. I turned her oxygen down to 2 L nasal cannula, and she did well with that, O2 sats were 93-94%, so I left her at 2 L. Blood pressures have been stable. She was given Rocephin prior to Dr. Cope leaving. Repeat troponin had come down 2.1 7, EKG was normal and she is not complaining of chest pain. Vital Signs Vital signs: Initial Vital Signs Temperature 97.8 F 09/14/21 01:32 Temperature Source Temporal Artery Scan 09/14/21 01:32 Pulse Rate 89 09/14/21 01:32 Pulse Rhythm 09/14/21 01:32 Respiratory Rate 20 09/14/21 01:32 Blood Pressure 147/79 H 09/14/21 01:32 Blood Pressure Mean 101 09/14/21 01:32 Blood Pressure Position Supine 09/14/21 01:32 Pulse Oximetry 98 09/14/21 01:32 Oxygen Delivery Method 09/14/21 01:32 Vital Signs Temperature 97.8 F 09/14/21 01:32 Pulse Rate 89 09/14/21 01:32 Respiratory Rate 20 09/14/21 01:32 Blood Pressure 147/79 H 09/14/21 01:32 Pulse Oximetry 98 09/14/21 01:32 Temperature 100.4 F H 09/15/21 12:00 Pulse Rate 73 09/15/21 12:00 Respiratory Rate 16 09/15/21 14:00 Blood Pressure 143/81 H 09/15/21 12:00 Pulse Oximetry 93 09/15/21 14:00 Medical Decision Making Lab Data Labs: Lab Results 09/14/21 09/14/21 09/14/21 Range/Units 01:45 01:45 01:45 WBC 10.96 (4.50-11.00) K/uL RBC 4.40 (4.00-5.20) m/uL Hgb 13.0 (12.0-16.0) gm/dL Hct 38.2 (33.0-51.0) % MCV 87 (80-100) fL MCH 30 (26-34) pg MCHC 34 (32-36) gm/dL RDW Coeff of Ha 13.1 (11.5-15.5) % Plt Count 199 (140-440) K/uL Neut % (Auto) 84.5 H (42.0-72.0) % Lymph % (Auto) 8.5 L (20-44) % [place] % (Auto) 6.7 (0.0-11.0) % Eos % (Auto) 0.0 (0.0-7.0) % Baso % (Auto) 0.1 (0.0-3.0) % Neut # (Auto) 9.30 H (1.7-7.0) K/uL Lymph # (Auto) 0.90 (0.90-2.90) K/uL [place] # (Auto) 0.70 (0.00-0.90) K/UL Eos # (Auto) 0.00 (0.00-0.50) K/uL Baso # (Auto) 0.01 (0.00-0.30) K/uL Abs Immat Gran (auto) 0.02 (0.00-0.30) K/uL D-Dimer Quant (PE/DVT) 2.72 H (0.00-0.50) ug/ml Sodium 136 (135-149) mmol/L Potassium 4.0 (3.6-5.1) mmol/L Chloride 104 (96-114) mmol/L Carbon Dioxide 22 (20-32) mmol/L BUN 16 (7-30) mg/dL Creatinine 0.9 (0.5-1.5) mg/dL Estimated Creat Clear 49.00 Estimated GFR 69 ml/min Glucose 143 H (60-115) mg/dL Lactate (0.5-1.9) mmol/L Calcium 8.9 (8.4-10.6) mg/dL Magnesium 2.0 (1.5-2.6) mg/dL Total Bilirubin 1.6 H (0.1-1.5) mg/dL AST 67 H (12-35) U/L ALT 64 H (4-35) U/L Alkaline Phosphatase 83 (40-150) U/L Troponin I 0.26 H* (0.01-0.04) ng/mL C-Reactive Protein 25.5 H (0.5-1.0) mg/dL NT-Pro-B Natriuret Pep 3380 H (0-125) PG/mL Total Protein 7.1 (6.0-8.3) g/dL Albumin 3.9 (3.3-5.0) g/dL Lipase 33 (23-300) U/L Procalcitonin (<0.50) ng/mL Urine Color (Yellow) Urine Appearance (Clear) Urine pH (5.0-8.5) Ur Specific [place] (1.000-1.030) Urine Protein (Negative) Urine Glucose (UA) (Negative) Urine Ketones (Negative) Urine Blood (Negative) Urine Nitrite (Negative) Urine Bilirubin (Negative) Urine Urobilinogen (0.2-1.0) Ur Leukocyte Esterase (Negative) Urine RBC (0-2) Urine WBC (0-5) Ur Squamous Epith Cells (None-Few) Amorphous Sediment (None) Urine Bacteria (None) Urine Mucus (None) SARS-CoV-2 (PCR) (Negative) Influenza Type A (PCR) (Negative) Influenza Type B (PCR) (Negative) 09/14/21 09/14/21 09/14/21 Range/Units 01:45 01:45 03:25 WBC (4.50-11.00) K/uL RBC (4.00-5.20) m/uL Hgb (12.0-16.0) gm/dL Hct (33.0-51.0) % MCV (80-100) fL MCH (26-34) pg MCHC (32-36) gm/dL RDW Coeff of Ha (11.5-15.5) % Plt Count (140-440) K/uL Neut % (Auto) (42.0-72.0) % Lymph % (Auto) (20-44) % [place] % (Auto) (0.0-11.0) % Eos % (Auto) (0.0-7.0) % Baso % (Auto) (0.0-3.0) % Neut # (Auto) (1.7-7.0) K/uL Lymph # (Auto) (0.90-2.90) K/uL [place] # (Auto) (0.00-0.90) K/UL Eos # (Auto) (0.00-0.50) K/uL Baso # (Auto) (0.00-0.30) K/uL Abs Immat Gran (auto) (0.00-0.30) K/uL D-Dimer Quant (PE/DVT) (0.00-0.50) ug/ml Sodium (135-149) mmol/L Potassium (3.6-5.1) mmol/L Chloride (96-114) mmol/L Carbon Dioxide (20-32) mmol/L BUN (7-30) mg/dL Creatinine (0.5-1.5) mg/dL Estimated Creat Clear Estimated GFR ml/min Glucose (60-115) mg/dL Lactate 1.3 (0.5-1.9) mmol/L Calcium (8.4-10.6) mg/dL Magnesium (1.5-2.6) mg/dL Total Bilirubin (0.1-1.5) mg/dL AST (12-35) U/L ALT (4-35) U/L Alkaline Phosphatase (40-150) U/L Troponin I (0.01-0.04) ng/mL C-Reactive Protein (0.5-1.0) mg/dL NT-Pro-B Natriuret Pep (0-125) PG/mL Total Protein (6.0-8.3) g/dL Albumin (3.3-5.0) g/dL Lipase (23-300) U/L Procalcitonin (<0.50) ng/mL Urine Color Yellow (Yellow) Urine Appearance Cloudy A (Clear) Urine pH 5.5 (5.0-8.5) Ur Specific [place] <= 1.005 (1.000-1.030) Urine Protein 2+ A (Negative) Urine Glucose (UA) Negative (Negative) Urine Ketones 2+ A (Negative) Urine Blood 2+ A (Negative) Urine Nitrite Positive A (Negative) Urine Bilirubin Negative (Negative) Urine Urobilinogen 0.2 (0.2-1.0) Ur Leukocyte Esterase 1+ A (Negative) Urine RBC 2-5 A (0-2) Urine WBC 5-10 A (0-5) Ur Squamous Epith Cells Moderate A (None-Few) Amorphous Sediment Few A (None) Urine Bacteria Moderate A (None) Urine Mucus Few A (None) SARS-CoV-2 (PCR) Negative SARS-CoV-2 (Negative) Influenza Type A (PCR) Negative PCR FLU A (Negative) Influenza Type B (PCR) Negative PCR FLU B (Negative) 09/14/21 09/14/21 09/14/21 Range/Units 04:50 08:20 08:20 WBC (4.50-11.00) K/uL RBC (4.00-5.20) m/uL Hgb (12.0-16.0) gm/dL Hct (33.0-51.0) % MCV (80-100) fL MCH (26-34) pg MCHC (32-36) gm/dL RDW Coeff of Ha (11.5-15.5) % Plt Count (140-440) K/uL Neut % (Auto) (42.0-72.0) % Lymph % (Auto) (20-44) % [place] % (Auto) (0.0-11.0) % Eos % (Auto) (0.0-7.0) % Baso % (Auto) (0.0-3.0) % Neut # (Auto) (1.7-7.0) K/uL Lymph # (Auto) (0.90-2.90) K/uL [place] # (Auto) (0.00-0.90) K/UL Eos # (Auto) (0.00-0.50) K/uL Baso # (Auto) (0.00-0.30) K/uL Abs Immat Gran (auto) (0.00-0.30) K/uL D-Dimer Quant (PE/DVT) (0.00-0.50) ug/ml Sodium (135-149) mmol/L Potassium (3.6-5.1) mmol/L Chloride (96-114) mmol/L Carbon Dioxide (20-32) mmol/L BUN (7-30) mg/dL Creatinine (0.5-1.5) mg/dL Estimated Creat Clear Estimated GFR ml/min Glucose (60-115) mg/dL Lactate 1.2 (0.5-1.9) mmol/L Calcium (8.4-10.6) mg/dL Magnesium (1.5-2.6) mg/dL Total Bilirubin (0.1-1.5) mg/dL AST (12-35) U/L ALT (4-35) U/L Alkaline Phosphatase (40-150) U/L Troponin I 0.27 H* 0.17 H* (0.01-0.04) ng/mL C-Reactive Protein (0.5-1.0) mg/dL NT-Pro-B Natriuret Pep (0-125) PG/mL Total Protein (6.0-8.3) g/dL Albumin (3.3-5.0) g/dL Lipase (23-300) U/L Procalcitonin 10.20 H (<0.50) ng/mL Urine Color (Yellow) Urine Appearance (Clear) Urine pH (5.0-8.5) Ur Specific [place] (1.000-1.030) Urine Protein (Negative) Urine Glucose (UA) (Negative) Urine Ketones (Negative) Urine Blood (Negative) Urine Nitrite (Negative) Urine Bilirubin (Negative) Urine Urobilinogen (0.2-1.0) Ur Leukocyte Esterase (Negative) Urine RBC (0-2) Urine WBC (0-5) Ur Squamous Epith Cells (None-Few) Amorphous Sediment (None) Urine Bacteria (None) Urine Mucus (None) SARS-CoV-2 (PCR) (Negative) Influenza Type A (PCR) (Negative) Influenza Type B (PCR) (Negative) Discharge Plan Discharge Clinical Impression: Acute pyelonephritis, Chest pain, Acute pyelitis, Elevated troponin Patient Disposition: Admitted As Inpatient Condition: Stable Activity Level: Activity as Tolerated Discharge Diet: Regular
--- NOTE | 2021-09-14 13:46 | P.IMHP_ITS ---
Hospitalist- H&P: HPI History of Present Illness Date Seen: 09/14/21 Chief complaint: Burning sensation in chest Narrative: Kavya Clarke is a 71 year old female admitted through the emergency department with 4 day history of generalized aching, fever, substernal chest pain and urinary symptoms. Patient reports she was in her usual state of good health until Saturday when she had relatively abrupt onset of generalized axial aching. She reports her entire trunk was aching. This has persisted over the subsequent several days. She has not had previous problems with this. She also noted that her substernal chest pain which has been a chronic intermittent problem for her had gotten much worse this week. She was evaluated for this in February in March of this year. She had a Myoview stress test which was unremarkable in March. This chest pain was thought to be noncardiac. This week however it feels much worse. It is nonexertional. She has had some cough this week. She feels some dyspnea this week as well. She reports she has had on off sense of fever and checked her temperature at home and it was as high as 103?. She reports no appetite. She has had nausea and vomited once this week. She has had no abdominal pain. Bowel function has been normal, except for con stipation this week. She reports she has had some discomfort with urination and on 1 occasion said that she saw visible blood and possible mucus in her urine. She has had no previous history of heart disease though evaluation over the last 6 months as noted above has been reassuring. She has no cardiac risk factors. She has had no previous urinary or kidney infections or genitourinary disease. She has no previous history of lung disease except a pneumothorax which was treated with a chest tube followed by VATS and pleurodesis. She has had no problems since that procedure. Review of Systems Narrative: She indicates that prior to this past Saturday she was well with none of the above concerns or symptoms except occasional episodes of chest pain. She has had no other symptoms this week except as noted above. Review of systems otherwise unremarkable. FORMERLY [facility], [facility] PFS Medical History Anxiety Generalized body aches Spontaneous pneumothorax Urinary urgency Surgical History History of cataract surgery History of tonsillectomy Family History (Updated 09/14/21 @ 13:53 by Brandon Dupree MD) Mother Frontotemporal dementia Father Dementia of the Alzheimer's type Brother Coronary artery disease Social History Highest level of school completed/degree received: Master's degree Smoking Status: Never smoker Do you use any of these nicotine containing products: None Second hand tobacco smoke exposure: No How often do you have a drink containing alcohol: never How often do you have six or more drinks on one occasion: Never AUDIT-C Alcohol total score: 0 Non-prescribed substance use: denies use Caffeine: Yes (diet Naverus) service: No Meds Home Medications and Allergies Home Medications Medication Instructions Recorded Confirmed Type bromfenac 0.07 % eye drops 1 drp OPHTHALMIC (EYE) DAILY 09/14/21 09/14/21 History (Prolensa) oxybutynin chloride 10 mg 10 mg PO DAILY 09/14/21 09/14/21 History tablet,extended release 24 hr paroxetine HCl 20 mg PO DAILY 09/14/21 09/14/21 History propranolol 10 mg tablet 10 mg PO DAILY 09/14/21 09/14/21 History tolterodine 4 mg capsule,extended 4 mg PO DAILY 09/14/21 09/14/21 History release 24 hr trazodone 50 mg tablet 50 mg PO HS 09/14/21 09/14/21 History Allergies Allergy/AdvReac Type Severity Reaction Status Date / Time No Known Allergies Allergy Verified 09/14/21 01:35 Exam Narrative: Exam Narrative: She is alert and appears in no obvious distress. She gives her own history. She has good recall of recent events and past medical history. Head is atraumatic and normocephalic. She has no tenderness over her temples. Eyes are normal. She has mild lid leg on the right eyelid which she says is chronic. Pupils are equal round reactive to light. Extraocular movements are full. Visual frost are intact. There is no facial asymmetry except for her right lid leg. Oropharynx is normal. No mucosal abnormalities. Neck is supple without mass or adenopathy. She has no tenderness. Respirations are clear to auscultation. Good air exchange all lung frost. Breathing is unlabored. Cardiovascular: S1, S2, regular rate and rhythm. No murmur gallop or rub. Abdomen: Bowel sounds active. Abdomen is soft without tenderness or mass. External genitalia normal. Extremities with intact sensation, pulses, capillary refill, strength in all 4 extremities. No edema. No rash. Const: Vital Signs, click to edit/add: Vital Signs - 24 hr 09/14/21 01:32 09/14/21 03:00 09/14/21 05:02 Temperature 97.8 F 99.6 F 99.6 F Pulse Rate [Left P ulse Oximeter] 89 85 Pulse Rate [Right Pulse Oximeter] Respiratory Rate 20 16 Blood Pressure [Le ft Arm] Blood Pressure [Le ft Upper Arm] 147/79 H 135/78 Pulse Oximetry 98 95 09/14/21 05:08 09/14/21 06:00 09/14/21 07:00 Temperature Pulse Rate [Left P ulse Oximeter] 79 66 Pulse Rate [Right Pulse Oximeter] Respiratory Rate 16 16 Blood Pressure [Le ft Arm] Blood Pressure [Le ft Upper Arm] 111/78 97/35 L Pulse Oximetry 93 93 98 09/14/21 07:47 09/14/21 08:00 09/14/21 09:00 Temperature 97.3 F L Pulse Rate [Left P ulse Oximeter] 79 76 90 Pulse Rate [Right Pulse Oximeter] Respiratory Rate 18 10 L 25 H Blood Pressure [Le ft Arm] Blood Pressure [Le ft Upper Arm] 100/81 128/75 145/82 H Pulse Oximetry 94 92 91 09/14/21 09:26 09/14/21 09:33 09/14/21 10:05 Temperature 101 F H 100.6 F H 101 F H Pulse Rate [Left P ulse Oximeter] 92 Pulse Rate [Right Pulse Oximeter] Respiratory Rate 25 H Blood Pressure [Le ft Arm] Blood Pressure [Le ft Upper Arm] 153/87 H Pulse Oximetry 96 09/14/21 10:30 09/14/21 11:00 09/14/21 11:30 Temperature Pulse Rate [Left P ulse Oximeter] 91 90 80 Pulse Rate [Right Pulse Oximeter] Respiratory Rate 13 26 H 12 Blood Pressure [Le ft Arm] Blood Pressure [Le ft Upper Arm] 140/71 H 122/56 L 98/50 L Pulse Oximetry 88 95 94 09/14/21 11:45 09/14/21 12:19 09/14/21 13:34 Temperature 97.5 F L 98.9 F Pulse Rate [Left P ulse Oximeter] 75 Pulse Rate [Right Pulse Oximeter] 70 Respiratory Rate 26 H 18 Blood Pressure [Le ft Arm] 104/67 Blood Pressure [Le ft Upper Arm] 107/57 L Pulse Oximetry 94 92 94 Documenting provider has reviewed patient's vital signs: yes Hospitalist - H&P: Result Labs Labs: Short CBC 09/14/21 Range/Units 01:45 WBC 10.96 (4.50-11.00) K/uL Hgb 13.0 (12.0-16.0) gm/dL Hct 38.2 (33.0-51.0) % Plt Count 199 (140-440) K/uL BMP 09/14/21 01:45 Sodium 136 Potassium 4.0 Chloride 104 Carbon Dioxide 22 BUN 16 Creatinine 0.9 Glucose 143 H Calcium 8.9 Cardiac Enzymes 09/14/21 09/14/21 09/14/21 Range/Units 01:45 04:50 08:20 Troponin I 0.26 H* 0.27 H* 0.17 H* (0.01-0.04) ng/mL Liver Function 09/14/21 Range/Units 01:45 Total Bilirubin 1.6 H (0.1-1.5) mg/dL AST 67 H (12-35) U/L ALT 64 H (4-35) U/L Alkaline Phosphatase 83 (40-150) U/L Albumin 3.9 (3.3-5.0) g/dL Urine 09/14/21 Range/Units 03:25 Urine Color Yellow (Yellow) Urine Appearance Cloudy A (Clear) Urine pH 5.5 (5.0-8.5) Ur Specific [place] <= 1.005 (1.000-1.030) Urine Protein 2+ A (Negative) Urine Glucose (UA) Negative (Negative) ECG Attestation: I personally reviewed and interpreted this ECG as follows: (2 electrocardiograms obtained this morning show normal sinus rhythm, initially with nonspecific ST-T changes and on repeat mild prolongation of QT.) Imaging CT Chest/Ab/Pelvis: Radiologist's impression: [address] [address] Diagnostic Imaging Report Patient: Kavya Clarke MR#: [id number] : 1950 Acct:[id number] Loc: ED Service Date: 09/14/[address]: Ordering Physician: Annmarie Ac M.D. Date of Service: 09/14/21 Procedure(s): CT chest abdomen pelv w con Accession Number(s): [id number] cc: Iris Brantley D.O.; Annmarie Ac M.D.~ For Patients:? As a result of the Century Cures Act, medical imaging exams and procedure reports are released immediately into your electronic medical record.? You may view this report before your referring provider.? If you have questions, please contact your health care provider. INDICATION: Chest discomfort, elevated D-dimer, nausea, vomiting TECHNIQUE: CT chest was performed with pulmonary angiographic technique. Subsequently, CT abdomen and pelvis with i.v. contrast during the venous phase. Coronal and sagittal reformats were obtained. CONTRAST: 95 mL Isovue 370 COMPARISON: None FINDINGS: The sensitivity and specificity of the exam are severely limited by beam hardening artifacts from scanning with the arms folded over the patient`s abdomen and motion artifacts and the patient`s inability to maintain a breath hold. CHEST: Cardiovascular: The heart has an unremarkable appearance and size. No CT identified pulmonary emboli are seen. The pulmonary arteries are unremarkable in appearance. Aneurysmal enlargement of the aortic arch and ascending aorta are present measuring 3.6 cm and 4 cm respectively. Mediastinum: No mass or adenopathy seen. Lung: Linear scarring is noted in the right upper lobe. Pleura and pericardium: Nodularity of the right pleura is present with the largest enhancing pleural nodules seen measuring 1.9 cm. Trace left pleural effusion is noted. No significant pericardial effusion is present. Chest wall and axilla: No mass or adenopathy seen. Bone: Unremarkable for age. No acute osseous injuries seen. ABDOMEN/PELVIS: Liver: Unremarkable. Spleen: Unremarkable. Pancreas: Unremarkable. Gallbladder: Unremarkable. Kidney: Bilateral renal cysts are present measuring up to 2 cm. Mild thickening and enhancement of the left renal pelvis urothelium is seen. There is subtle areas of decreased cortical enhancement seen in the right kidney. Adrenal: Unremarkable. Bowel: Unremarkable. The appendix is not identified. Vascular: Moderate diffuse atherosclerotic calcifications of the abdominal aorta and its tributaries are present. Lymph: Unremarkable. Peritoneum: Unremarkable. No pneumoperitoneum is seen. No significant ascites is noted. Pelvis: Small fat containing bilateral inguinal hernias are present. Soft tissue: Unremarkable. Bone: Unremarkable for age. No acute osseous injuries seen. IMPRESSIONS: 1. No CT evidence of pulmonary embolism seen. 2. Aneurysmal enlargement of the aortic arch and ascending aorta are present measuring 3.6 cm and 4 cm respectively. 3. Nodularity of the right pleura is present with the largest enhancing pleural nodules seen measuring 1.9 cm. Correlation with clinical history of biopsy is recommended to exclude pleural metastases. 4. Mild thickening and enhancement of the left renal pelvis urothelium is seen. There is subtle areas of decreased cortical enhancement seen in the right kidney. Findings may be due to pyelonephritis and infectious pyelitis. 5. Trace left pleural effusion is noted. Dictated by Darion Kimbrough MD @ 09/14/2021 3:16:08 AM Please note that all CT scans at this facility use dose modulation, iterative reconstruction, and/or weight-based dosing when appropriate to reduce radiation dose to as low as reasonably achievable. Dictated by: Darion Kimbrough MD @ 09/14/2021 03:16:11 Assessment and Plan Assessment and plan (1) Acute pyelonephritis: Status: Acute Assessment and Plan: Her acute illness may represent acute pyelonephritis as the primary problem. Fever has been prominent but urinary symptoms less so. Urinary sediment is not markedly abnormal. Await cultures and treat with ceftriaxone (2) Elevated troponin: Status: Acute Assessment and Plan: Suspect type 2 non STEMI due to other acute illness. Normal Myoview stress test in March. Trend troponins, monitor for symptoms and vital signs. (3) Generalized body aches: Status: Acute Assessment and Plan: Profound onset of axial aching and marked elevation of inflammatory markers suggest a rheumatic condition such as PMR/GCA. Not clear that this ties into her fever and elevated troponins at this point. Further investigation may be warranted (4) Chest pain: Status: Acute Assessment and Plan: Chronic recurrent chest pain with reassuring prior evaluation now with acute worsening and elevation of troponins. Continue to monitor. May need more inve stigation depending on her clinical course
[2021-09-14 14:35] LABS: Thyroid Stimulating Hormone* 0.843 uIU/mL (0.270-4.20)
[2021-09-14] MEDS: predniSONE 20 MG TABLET 60 MG PO (14:36)
[2021-09-14] MEDS: ASPIRIN 81 MG TAB.CHEW 162 MG PO (14:36)
--- NOTE | 2021-09-14 15:16 | PC.NURSE ---
Shift Summary: Patient alert and oriented, uses call light appropriately. Bed alarm in place, SBA due to some unsteadiness with gait. States she aches all over, rates pain a 6/10 however denies need for medication. o2 sats drop to 86% on room air when sleeping, placed on o2 @ 1L/NC. BP soft, otherwise vitals WNL.
[2021-09-14] MEDS: ACETAMINOPHEN 325 MG TABLET 650 MG PO (15:51)
[2021-09-14 18:25] LABS: Erythrocyte SedimentationRate* 72 mm/hr (2-20)
[2021-09-14] MEDS: ENOXAPARIN 40 MG/0.4 ML INJ SUBCUT (20:35)
[2021-09-14 20:36] LABS: Troponin I* 0.09 ng/mL (0.01-0.04)
[2021-09-14] MEDS: TRAZODONE HCL 50 MG TABLET 100 MG PO (20:36)
--- NOTE | 2021-09-14 22:51 | PC.NURSE ---
Shift [id number]- Patient denies pain throughout shift and states she feels better than she has the past few days. She is up with SBA. She requires 1L O2 as she falls asleep to keep sats >90%. She is on room air while awake. She is up to the chair this evening. She is tolerating eating and drinking without issue. Tylenol given for elevated temperature, which subsequently decreased- see charting.
[2021-09-15] VITALS (7 sets, daily range): BP systolic 117–143; BP diastolic 63–85; PULSE 46–87; RESP 16–18; TEMP 36.2–38; O2SAT 90–97
--- NOTE | 2021-09-15 07:01 | PC.NURSE ---
END OF SHIFT NOTE: PT PLEASENTLY CONFUSED. AMBULATES WITH SBA. VSS AND WNL. AFEBRILE. PT UTILIZES 1L SUPPLEMENTAL OXYGEN VIA NC AT HS TO MAINTAIN SPO2>90%. TELE READS SINUS BRADYCARDIA. PT DENIES CHEST PAIN, SOB, N/V.
[2021-09-15 07:25] LABS: Hematocrit 36.8 % (33.0-51.0); Hemoglobin* 12.2 gm/dL (12.0-16.0); Immature Granulocytes Abs Auto 0.03 K/uL (0.00-0.30); Lymphocytes Percent Auto 4.9 % (20-44); Mean Corpuscular HGB Conc 33 gm/dL (32-36); Mean Corpuscular Hemoglobin 29 pg (26-34); Mean Corpuscular Volume 88 fL (80-100); Monocytes Percent Auto 6.3 % (0.0-11.0); Neutrophils Percent Auto 88.5 % (42.0-72.0); Platelet Count* 207 K/uL (140-440); RDW Coefficient of Variation % 13.2 % (11.5-15.5); Red Blood Count 4.18 m/uL (4.00-5.20); White Blood Count* 9.39 K/uL (4.50-11.00)
[2021-09-15 07:46] LABS: Chloride* 108 mmol/L (96-114); Potassium* 4.2 mmol/L (3.6-5.1); Sodium* 138 mmol/L (135-149)
[2021-09-15 07:50] LABS: Blood Urea Nitrogen* 19 mg/dL (7-30); Calcium* 8.6 mg/dL (8.4-10.6); Carbon Dioxide* 27 mmol/L (20-32); Creatinine* 0.8 mg/dL (0.5-1.5); Estimated Glomerular Filt Rate 79 ml/min; Glucose* 145 mg/dL (60-115)
--- NOTE | 2021-09-15 07:51 | PM.IMPN1 ---
Progress Note: A&P Assessment and plan (1) Pleural nodules: Status: Acute (2) Acute pyelonephritis: Status: Acute (3) Elevated troponin: Status: Acute Subjective Date Seen: 09/15/21 Interval history: Daily Progress Note - Hospital Medicine #: CC: OVERNIGHT UPDATES FROM STAFF & MED, LAB, IMAGING UPDATES echo 09/14 Final Impressions: 1. Normal LV size, borderline wall thickness, normal global and regional systolic function with an estimated EF of 65 - 70%. 2. Right ventricular cavity size is normal, global systolic RV function is normal. 3. The aortic valve is trileaflet and sclerotic, no stenosis and trivial regurgitation. 4. The aortic sinus is dilated with a maximal diameter of 4.1 cm. The ascending aorta is dilated with a maximal diameter of 4.2 cm. Lexiscan Myoview ? RE : Kavya Clarke # : [id number] : 1950 Date : 03/22/2021 ? Physician Requesting Test: Dr. Iris Brantley Copy To: ? Indication for test: atypical chest pain. ? FINAL IMPRESSION: Subjectively and objectively negative multistage stress test. Await images ? INTERPRETATION: Abnormal resting EKG. Pulse went to 101. Blood pressure went to 134/82. Rare PVC noted. IMPRESSION: ? 1. There is no evidence of significant myocardial ischemia or infarction. ? 2. Normal left ventricular ejection fraction of approximately 65%. ? This study was jointly reviewed by Radiology and Cardiology. Review of Systems: See subjective Cardiac: No new chest pain/pressure/palpitations. Respiratory: no new dyspnea. GI: No abdominal bloating Objective: Vitals: see above Lungs: Clear. Cardiac: S1S2. Disposition/Potential discharge - Likely to return to previous living situation. Total time is 70 minutes with greater than 50% spent in counseling and coordination of care. Exam Const: Vital Signs, click to edit/add: Vital Signs - 24 hr 09/14/21 08:00 09/14/21 09:00 09/14/21 09:26 Temperature 101 F H Pulse Rate Pulse Rate [Left P ulse Oximeter] 76 90 Pulse Rate [Right Pulse Oximeter] Respiratory Rate 10 L 25 H Blood Pressure [Le ft Arm] Blood Pressure [Le ft Upper Arm] 128/75 145/82 H Pulse Oximetry 92 91 09/14/21 09:33 09/14/21 10:05 09/14/21 10:30 Temperature 100.6 F H 101 F H Pulse Rate Pulse Rate [Left P ulse Oximeter] 92 91 Pulse Rate [Right Pulse Oximeter] Respiratory Rate 25 H 13 Blood Pressure [Le ft Arm] Blood Pressure [Le ft Upper Arm] 153/87 H 140/71 H Pulse Oximetry 96 88 09/14/21 11:00 09/14/21 11:30 09/14/21 11:45 Temperature 97.5 F L Pulse Rate Pulse Rate [Left P ulse Oximeter] 90 80 75 Pulse Rate [Right Pulse Oximeter] Respiratory Rate 26 H 12 26 H Blood Pressure [Le ft Arm] Blood Pressure [Le ft Upper Arm] 122/56 L 98/50 L 107/57 L Pulse Oximetry 95 94 94 09/14/21 12:19 09/14/21 13:34 09/14/21 15:25 Temperature 98.9 F 99.7 F H Pulse Rate Pulse Rate [Left P ulse Oximeter] Pulse Rate [Right Pulse Oximeter] 70 74 Respiratory Rate 18 18 Blood Pressure [Le ft Arm] 104/67 119/57 L Blood Pressure [Le ft Upper Arm] Pulse Oximetry 92 94 94 09/14/21 16:15 09/14/21 16:37 09/14/21 19:07 Temperature 99.1 F 97.8 F Pulse Rate 76 Pulse Rate [Left P ulse Oximeter] Pulse Rate [Right Pulse Oximeter] 63 Respiratory Rate 16 Blood Pressure [Le ft Arm] 102/56 L Blood Pressure [Le ft Upper Arm] Pulse Oximetry 95 09/15/21 02:40 09/15/21 02:52 09/15/21 03:35 Temperature 97.1 F L 97.1 F L Pulse Rate 46 L Pulse Rate [Left P ulse Oximeter] Pulse Rate [Right Pulse Oximeter] 53 L 65 Respiratory Rate 16 18 Blood Pressure [Le ft Arm] 126/64 125/63 Blood Pressure [Le ft Upper Arm] Pulse Oximetry 90 96 09/15/21 07:19 Temperature Pulse Rate 55 L Pulse Rate [Left P ulse Oximeter] Pulse Rate [Right Pulse Oximeter] Respiratory Rate Blood Pressure [Le ft Arm] Blood Pressure [Le ft Upper Arm] Pulse Oximetry Labs Labs: Laboratory Results - last 24 hr 07/09/14/21 09/14/21 08:20 08:20 13:32 ESR Lactate 1.2 Troponin I 0.17 H* Procalcitonin 10.20 H TSH 0.843 09/14/21 09/14/21 17:21 19:39 ESR 72 H Lactate Troponin I 0.09 H* Procalcitonin TSH
[2021-09-15 07:56] LABS: Slide Review Reflex No
[2021-09-15 08:52] LABS: Troponin I* 0.04 ng/mL (0.01-0.04)
[2021-09-15] MEDS: ASPIRIN 81 MG TABLET EC PO (09:42)
[2021-09-15] MEDS: predniSONE 20 MG TABLET PO (09:43)
[2021-09-15] MEDS: PARoxetine 20 MG TABLET PO (09:43)
[2021-09-15] MEDS: cefTRIAXone 1 GM in 0.9 % SODIUM CHLORIDE Mini-bag 100 ML IVPB (09:44)
[2021-09-15] MEDS: ACETAMINOPHEN 325 MG TABLET 650 MG PO (13:09)
--- NOTE | 2021-09-15 17:03 | PC.NURSE ---
Pt eval by Dr. Sharif. Please see eMar for meds provided. IV ATB infused w/o difficulty. Low grade oral temp of 100.4 dropped to 98.2 after prn tylenol given. Pt and her spouse verbalized understanding of d/c diagnosis, home meds, new prescriptions sent to pharmacy, f/up appt and sx to report urgently to MD. Discharged via w/c with spouse to own home @ 1355PM.
--- NOTE | 2021-09-15 17:43 | PC.NURSE ---
Pt's spouse noted above is Damián.
--- NOTE | 2021-09-26 13:04 | PM.DS1 ---
DS: Providers Provider Date Seen: 09/15/21 Date of admission: 09/14/21 11:51 Primary care physician: Iris Brantley DO Admitting Clinician: Bradnon Dupree MD Attending Physician on discharge: Rianna Sharif MD [facility] Hospitalist Date of Discharge: 09/15/21 DS: Diagnosis Discharge Diagnosis (1) Acute pyelonephritis: Status: Acute Problem details: Continue outpatient Cipro. Final culture was not available at discharge (2) PMR (polymyalgia rheumatica): Status: Acute Problem details: Suspected Patient felt so much better after her initial dose of prednisone, and continue this for 4 more days. However if her achiness returned she may need to speak with her PCP about extended dose and slower taper of her prednisone. (3) Pleural nodules: Status: Acute Problem details: Unclear significance. Found on the T at admission. DS: Summary Time Spent with Patient Time attestation: Total time spent providing and/or coordinating discharge services: Exam Const: Vital Signs, click to edit/add: Vital Signs - 24 hr 09/14/21 19:07 09/15/21 02:40 09/15/21 02:52 Temperature 97.8 F 97.1 F L Pulse Rate 46 L Pulse Rate [Right Pulse Oximeter] 63 53 L Respiratory Rate 16 16 Blood Pressure [Le ft Arm] 102/56 L 126/64 Pulse Oximetry 95 90 09/15/21 03:35 09/15/21 07:19 09/15/21 08:00 Temperature 97.1 F L 98.4 F Pulse Rate 55 L Pulse Rate [Right Pulse Oximeter] 65 87 Respiratory Rate 18 16 Blood Pressure [Le ft Arm] 125/63 117/85 Pulse Oximetry 96 97 09/15/21 12:00 Temperature 100.4 F H Pulse Rate Pulse Rate [Right Pulse Oximeter] 73 Respiratory Rate 18 Blood Pressure [Le ft Arm] 143/81 H Pulse Oximetry 91 DS: Data Data Completed and Pending Labs on day of discharge: Labs from last 24 hours 09/15/21 09/15/21 09/14/21 06:35 06:35 19:39 WBC 9.39 RBC 4.18 Hgb 12.2 Hct 36.8 MCV 88 MCH 29 MCHC 33 RDW Coeff of Ha 13.2 Plt Count 207 Neut % (Auto) 88.5 H Lymph % (Auto) 4.9 L Crisp % (Auto) 6.3 Eos % (Auto) 0.0 Baso % (Auto) 0.0 Neut # (Auto) 8.30 H Lymph # (Auto) 0.50 L Crisp # (Auto) 0.60 Eos # (Auto) 0.00 Baso # (Auto) 0.00 Abs Immat Gran (auto) 0.03 ESR Sodium 138 Potassium 4.2 Chloride 108 Carbon Dioxide 27 BUN 19 Creatinine 0.8 Estimated Creat Clear 49.00 Estimated GFR 79 Glucose 145 H Calcium 8.6 Troponin I 0.04 0.09 H* C-Reactive Protein 27.0 H 09/14/21 17:21 WBC RBC Hgb Hct MCV MCH MCHC RDW Coeff of Ha Plt Count Neut % (Auto) Lymph % (Auto) Crisp % (Auto) Eos % (Auto) Baso % (Auto) Neut # (Auto) Lymph # (Auto) Crisp # (Auto) Eos # (Auto) Baso # (Auto) Abs Immat Gran (auto) ESR 72 H Sodium Potassium Chloride Carbon Dioxide BUN Creatinine Estimated Creat Clear Estimated GFR Glucose Calcium Troponin I C-Reactive Protein Discharge Plan Discharge Disposition: Home, Self-Care Date of Admission: 09/14/21 11:51 Attending Provider on Discharge: Rianna Sharif Primary Care Provider: Iris Brantley Condition: Stable Anticipated Discharge Date/Time: 09/15/21 14:41 Discharge Medications: New ciprofloxacin HCl 500 mg tablet 500 mg PO Q12H Qty: 14 0RF prednisone 20 mg Tablet 20 mg PO DAILYWM Qty: 3 0RF Continued trazodone 50 mg tablet 50 mg PO HS 0RF oxybutynin chloride 10 mg tablet extended release 24 hr 10 mg PO DAILY 0RF propranolol 10 mg tablet 10 mg PO DAILY 0RF Label Comments: TAKE 1-2 TABLETS BY MOUTH DAILY NEEDED FOR PERFORMANCE ANXIETY Prolensa 0.07 % drops 1 drp OPHTHALMIC (EYE) DAILY 0RF Label Comments: Instill 1 drop Right Eye once a day tolterodine 4 mg capsule,extended release 24hr 4 mg PO DAILY 0RF paroxetine HCl 20 mg tablet 20 mg PO DAILY 0RF Discharge Orders: Discharge Order (Routine); Ordered 09/15/21 Ordered By: Rianna Sharif Patient Education: Ciprofloxacin (By mouth), Prednisone (By mouth), Kidney Infection (DC), Polymyalgia Rheumatica (GEN) Activity Restrictions/Additional Instructions: Finished all antibiotic. Her why you may feel so much better is that you received a high dose of prednisone last night. Dr. Dupree and I thought maybe you have something called PMR - I have included Education about it. I will continue your prednisone for a total of 5 days, from yesterday. But if when coming off this prednisone your achiness returns- let your doc no and you may need an extended duration several weeks of prednisone Activity Level: Activity as Tolerated Discharge Diet: Regular Follow Up Appointments: Iris Brantley DO [Primary Care Provider] - 09/27/21 12:45 pm Forms: [facility] Medical Info Instructions
== END 2021-09-15 13:55 | disposition home or self-care (01) | DRG 689 ==
LOC: ED 09:15 → MEDSURG 11:52
PROVIDERS: Family Medicine; Admitting Provider Family Medicine; Emergency Provider Family Medicine; PCP Family Medicine; Visit Provider Family Medicine
DX: N10 Acute pyelonephritis (principal); I21.A1 Myocardial infarction type 2; B96.20 Unspecified Escherichia coli [E. coli] as the cause of diseases classified elsewhere; M35.3 Polymyalgia rheumatica; F41.9 Anxiety disorder, unspecified; R91.8 Other nonspecific abnormal finding of lung field
CPT/HCPCS: 36415; 71260; 74177; 80048; 80053; 81001; 83605; 83690; 83735; 83880; 84145; 84443; 84484; 85025; 85379; 85651; 86140; 87086; 87186; 87502; 87635; 93005; 93306; 94761; 99285; G0378; A9270; J0696; J1650; J2405; J7512; Q9967

== ENCOUNTER 2021-10-02 10:11 | Outpatient (CLI) | payer MEDICARE, SELFPAY ==
--- NOTE | 2021-10-02 10:15 | CRLHL7_ITS ---
For Patients: As a result of the Century Cures Act, medical imaging exams and procedure reports are released immediately into your electronic medical record. You may view this report before your referring provider. If you have questions, please contact your health care provider. INDICATION: Ptosis of right eye. Ocular hypertension. TECHNIQUE: MRI brain: Multiplanar multisequence MR imaging acquired prior to and following intravenous contrast. MRA head: [id number] imaging acquired. COMPARISON: None. FINDINGS: MRI brain: Prominence of the ventricles and sulci compatible with oipv-zd-gkgxyanl diffuse cerebral volume loss. No mass effect or midline shift. Scattered T2 FLAIR hyperintensities in the supratentorial white matter, typical for esks-sl-phhxnryh chronic microvascular ischemic changes. No intracranial hemorrhage or pathologic extra-axial fluid collection. No diffusion restriction to suggest acute infarction. No pathologic intracranial enhancement. Partially empty configuration of the sella. Cystic 8 mm lesion within the right sella (series 11, image 20), nonspecific. The major arterial flow voids of the skullbase are preserved. Thinning of the ocular lenses. Mild maxillary and ethmoid sinus mucosal thickening. The mastoid air cells are clear. MRA head: The visualized internal carotid, middle cerebral, and anterior cerebral arteries are widely patent. The vertebral, basilar, and posterior cerebral arteries are widely patent. No intracranial aneurysm or high-flow vascular malformation. IMPRESSION: 1. No acute intracranial abnormality. 2. Mild to moderate chronic microvascular ischemic changes and diffuse cerebral volume loss. 3. Unremarkable MRA of the head. Dictated by Karthik Degroot MD @ 10/02/2021 12:16:08 PM (Electronically Signed)
--- NOTE | 2021-10-02 10:15 | CRLHL7_ITS ---
For Patients: As a result of the Century Cures Act, medical imaging exams and procedure reports are released immediately into your electronic medical record. You may view this report before your referring provider. If you have questions, please contact your health care provider. INDICATION: Ptosis of right eye. Ocular hypertension. TECHNIQUE: MRI brain: Multiplanar multisequence MR imaging acquired prior to and following intravenous contrast. MRA head: Rygo-by-vijexj imaging acquired. COMPARISON: None. FINDINGS: MRI brain: Prominence of the ventricles and sulci compatible with tvme-sk-qsscvfvf diffuse cerebral volume loss. No mass effect or midline shift. Scattered T2 FLAIR hyperintensities in the supratentorial white matter, typical for pwzk-fz-rivgyuoz chronic microvascular ischemic changes. No intracranial hemorrhage or pathologic extra-axial fluid collection. No diffusion restriction to suggest acute infarction. No pathologic intracranial enhancement. Partially empty configuration of the sella. Cystic 8 mm lesion within the right sella (series 11, image 20), nonspecific. The major arterial flow voids of the skullbase are preserved. Thinning of the ocular lenses. Mild maxillary and ethmoid sinus mucosal thickening. The mastoid air cells are clear. MRA head: The visualized internal carotid, middle cerebral, and anterior cerebral arteries are widely patent. The vertebral, basilar, and posterior cerebral arteries are widely patent. No intracranial aneurysm or high-flow vascular malformation. IMPRESSION: 1. No acute intracranial abnormality. 2. Mild to moderate chronic microvascular ischemic changes and diffuse cerebral volume loss. 3. Unremarkable MRA of the head. Dictated by Karthik Degroot MD @ 10/02/2021 12:15:19 PM (Electronically Signed)
== END 2021-10-02 10:12 | disposition home or self-care (01) ==
LOC: MRI 10:13
PROVIDERS: PCP Family Medicine; Visit Provider Ophthalmology
DX: H02.421 Myogenic ptosis of right eyelid (principal); I67.82 Cerebral ischemia; H40.051 Ocular hypertension, right eye
CPT/HCPCS: 70544; 70553

== ENCOUNTER 2023-03-21 13:16 | Outpatient (CLI) | payer MEDICARE, SELFPAY ==
--- OUTSIDE RECORDS SUMMARY | 2023-03-21 13:20 | XMS_ITS | Clinical Summary ---
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 0 Active calcium carbonate/vitamin D2 (CALCIUM 600 + D ORAL) Take 600 mg by mouth two times daily. 0 Active gabapentin (NEURONTIN) 300 mg capsuleIndications:P eripheral sensory neuropathy,Restless leg syndrome Take 1 Capsule (300 mg) by mouth at bedtime. 90 Capsule 3 02/06/2023 Active buPROPion (WELLBUTRIN XL) 150 mg Extended-Release tabletIndications:De pression, recurrent (HC) Take 1 Tablet (150 mg) by mouth every morning. 90 Tablet 3 02/06/2023 Active rosuvastatin (CRESTOR) 20 mg tabletIndications:Hy perlipidemia, unspecified hyperlipidemia type Take 1 Tablet (20 mg) by mouth at bedtime. 90 Tablet 3 02/06/2023 Active PARoxetine (PAXIL) 20 mg tabletIndications:An xiety Take 1 Tablet (20 mg) by mouth every morning. 90 Tablet 3 02/06/2023 Active oxybutynin XL (DITROPAN XL) 10 mg CR tabletIndications:Ov eractive bladder Take 2 Tablets (20 mg) by mouth once daily. 180 Tablet 3 02/06/2023 Active traZODone (DESYREL) 50 mg tabletIndications:In somnia, idiopathic TAKE ONE TO TWO TABLETS(50MG TO 100 MG)BY MOUTH AT BEDTIME NEEDED FOR SLEEP. 180 Tablet 3 02/26/2023 Active Active Problems Problem Noted Date Diagnosed Date PMR (polymyalgia rheumatica) 12/20/2022 Pulmonary embolus, left 12/20/2022 Depression, recurrent 10/17/2021 Ascending aortic aneurysm 09/27/2021 Overview: Had echocardiogram and CT in hospital 09/2021. Plan repeat CT in 6 months. NSTEMI (non-ST elevation myocardial infarction) 09/27/2021 Overview: Due to acute illness when hospitalized for pyelonephritis September 2021 Situational anxiety 01/20/2020 Performance anxiety 02/16/2011 Encounters Date Type Department Care Team Description 03/20/2023 2:00 PM AURICULAR DETOXIFICATION SPECIALIST Orders Only [facility] [address] [place] [facility] [address] Lab, [place] [facility] 03/20/2023 Travel 03/14/2023 Telephone [facility] [address] [place] [address] Iris Brantley, Results 03/14/2023 E-Consult [facility] [address] [place] [address] Mandy Esparza DO 03/13/2023 Orders Only [facility] [address] [place] [address] Iris Brantley, <No scans attached> 03/08/2023 10:12 AM AURICULAR DETOXIFICATION SPECIALIST - 03/08/2023 11:59 PM AURICULAR DETOXIFICATION SPECIALIST Hospital Encounter [address] [place] [address] Amanda Brush, Homer Curtis, PT 03/08/2023 7:30 AM AURICULAR DETOXIFICATION SPECIALIST Procedure Only [facility] [address] [place] [address] Iris Brantley DO Derm Problem (Mole removal); Results (EMG)... 03/08/2023 Telephone [facility] [place] [facility] [address] [facility] [address] Héctor Bruno MD Referral 03/08/2023 Travel 03/05/2023 8:43 AM AURICULAR DETOXIFICATION SPECIALIST - 03/05/2023 11:59 PM AURICULAR DETOXIFICATION SPECIALIST Hospital Encounter [address] [address] Amanda Brush PA Wegner, Smita Newton, MEDICAL VAN DRIVER 03/05/2023 Travel 02/28/2023 1:53 PM AURICULAR DETOXIFICATION SPECIALIST - 02/28/2023 11:59 PM AURICULAR DETOXIFICATION SPECIALIST Hospital Encounter [address] [address] Amanda Brush, Homer Curtis, PT 02/28/2023 8:10 AM AURICULAR DETOXIFICATION SPECIALIST - 02/28/2023 1:52 PM AURICULAR DETOXIFICATION SPECIALIST Hospital Encounter [facility]/EEG/EP [address] [address] Janelle Chase MD Tingling of both feet 02/28/2023 Travel 02/26/2023 8:42 AM AURICULAR DETOXIFICATION SPECIALIST - 02/26/2023 11:59 PM AURICULAR DETOXIFICATION SPECIALIST Hospital Encounter [address] [address] Amanda Brush PA Wegner, Smita V, MEDICAL VAN DRIVER 02/26/2023 Travel 02/25/20[facility] [address] [place] [facility] [address] Iris Brantley DO Refill Request (Trazodone) 02/14/2023 1:28 PM AURICULAR DETOXIFICATION SPECIALIST - 02/14/2023 11:59 PM AURICULAR DETOXIFICATION SPECIALIST Hospital Encounter [address] [address] Amanda Brush, Cris Salazar, PT 02/14/2023 Travel 02/07/2023 10:58 AM AURICULAR DETOXIFICATION SPECIALIST - 02/07/2023 11:59 PM AURICULAR DETOXIFICATION SPECIALIST Hospital Encounter [address] [address] Amanda Brush PA Rein, Erik, PT 02/07/2023 Travel 02/06/2023 7:30 AM AURICULAR DETOXIFICATION SPECIALIST Office Visit [facility] [address] [place] [address] Iris Brantley, Medicare ANNUAL (subsequent) Visit (72 year old medicare); Immunization/Inject ion (COVID-19?); Sleep Problem (Trazadone not working); Constipation (Ongoing getting worse, rectal bleeding); Knee Pain/problem (Bilateral-right knee worse) 02/05/2023 8:41 AM AURICULAR DETOXIFICATION SPECIALIST - 02/05/2023 11:59 PM AURICULAR DETOXIFICATION SPECIALIST Hospital Encounter [address] [address] Amanda Brush PA Wegner, Angela V, MEDICAL VAN DRIVER 02/05/2023 Refill [facility] [address] [place] [address] Irsi Brantley DO Refill Request (Gabapentin) 02/05/2023 Travel 01/25/2023 12:50 PM AURICULAR DETOXIFICATION SPECIALIST Phone Office Visit [facility] [address] [place] [address] Amanda Brush PA Phone Visit (No vitals taken ); URI (Congestion started yesterday ); Pain (Body aches started yesterday ); Fatigue (Started two days ago ); Covid-19 Positive Result (Tested positive last night ) 01/25/2023 Telephone [facility] [address] [place] [address] Iris Brantley DO Covid-19 Positive Result 01/25/2023 Travel 01/22/2023 12:54 PM AURICULAR DETOXIFICATION SPECIALIST - 01/22/2023 11:59 PM AURICULAR DETOXIFICATION SPECIALIST Hospital Encounter [facility] [address] [address] Amanda Brush PA Wegner, Angela V, MEDICAL VAN DRIVER 01/22/2023 Travel 01/17/2023 1:10 PM AURICULAR DETOXIFICATION SPECIALIST - 01/17/2023 11:59 PM AURICULAR DETOXIFICATION SPECIALIST Hospital Encounter [address] [address] Amanda Brush, Homer Curtis, PT 01/17/2023 Travel 01/16/2023 9:00 AM AURICULAR DETOXIFICATION SPECIALIST - 01/16/2023 11:59 PM AURICULAR DETOXIFICATION SPECIALIST Hospital Encounter [facility] [address] [place] [address] Joy Nielsen PA Aneurysm of ascending aorta without rupture (HC) 01/15/2023 1:40 PM AURICULAR DETOXIFICATION SPECIALIST - 01/15/2023 11:59 PM AURICULAR DETOXIFICATION SPECIALIST Hospital Encounter [address] [address] Amanda Brush PA Wegner, Angela V, MEDICAL VAN DRIVER 01/15/2023 Travel 01/05/2023 Refill [facility] [address] [place] [address] Iris Brantley DO Refill Request (Oxybutynin Xl) 01/02/2023 12:58 PM AURICULAR DETOXIFICATION SPECIALIST - 01/02/2023 11:59 PM AURICULAR DETOXIFICATION SPECIALIST Hospital Encounter [address] [address] Amanda Brush PA Wegner, Angela V, MEDICAL VAN DRIVER 01/02/2023 Travel 12/28/2022 12:57 PM AURICULAR DETOXIFICATION SPECIALIST - 12/28/2022 11:59 PM AURICULAR DETOXIFICATION SPECIALIST Hospital Encounter [address] [address] Amanda Brush PA Rein, Erik, PT 12/28/2022 Travel 12/25/2022 3:41 PM AURICULAR DETOXIFICATION SPECIALIST - 12/25/2022 11:59 PM AURICULAR DETOXIFICATION SPECIALIST Hospital Encounter [facility] [address] [place] [address] Amanda Brush PA Rein, Erik, PT Acute pain of right shoulder 12/25/2022 9:00 AM AURICULAR DETOXIFICATION SPECIALIST Ancillary Procedure [facility] [address] [facility] [address] 12/25/2022 Travel 12/20/2022 3:15 PM CDT Ancillary Procedure [facility] [address] [place] [address] 12/20/2022 2:30 PM CDT Office Visit [facility] [address] [place] [address] Amanda Brush PA Shoulder Pain/problem (Right shoulder pain since 11/21/22) 12/20/2022 Travel 12/19/2022 Refill [facility] [address] [place] [address] Iris Brantley DO Refill Request (Paroxetine) from Last 3 Months Immunizations Name Administration Dates Next Due COVID-19 vaccine (Moderna 100mcg/0.5mL) PF, MDV 12/06/2021,06/06/2021,05/16/2020,04/18 HepA-HepB (Twinrix) 12/15/2002 Influenza, High-dose Inactivated 12/23/2018 Influenza, High-dose Quadriv alent Inactivated 12/16/2020 Influenza, IIV3 (Age >=3 years) 11/15/2010 Influenza, Inactivated AIIV4 (Age 65+ Years) Preserv Free 12/04/2022,12/06/2021,11/09/2019 Pneumococcal Conj 20-valent (Prevnar 20) 01/01/2022 Pneumococcal conj 13-Valent (Prevnar 13) 11/09/2019 RSV, Recombinant ADJ Reconst ituted (Arexvy 120MCG/0.5mL) 12/04/2022 Tdap 07/24/2018,07/09/2007 Zoster (Shingrix-RZV, recombinant) 07/20/2020, Family History Medical History Relation Name Comments Cancer-breast Maternal Aunt Cancer-breast Maternal Grandmother Relation Name Status Comments Maternal Aunt Maternal Grandmother Social History Tobacco Use Types Packs/Day Years Used Date Smoking Tobacco: Never Smokeless Tobacco: Never Tobacco Cessation:Counseling Given: Yes Alcohol Use Standard Drinks/Week Comments Not Currently 0 (1 standard drink = 0.6 oz pur e alcohol) PHQ-2 Answer Date Recorded PHQ-2 TOTAL SCORE 0 02/06/2023 Social Connections Answer Date Recorded Frequency of Communication with Friends and Fami ly 0 12/20/2022 Alcohol Use Answer Date Recorded How often do you have a drink containing alcohol ? 1 01/01/2022 How many drinks containing a lcohol do you have on a typical day when you are drinking? 0 01/01/2022 How often do you have five or more drinks on one occasion? 0 01/01/2022 Financial Resource Strain Answer Date R ecorded Difficulty of Paying Living Expenses 3 12/20/2022 Difficulty of Paying Living Expenses Not on file 12/20/2022 Food Insecurity Answer Date Recorded Worried About Running Out of Food in the Last Ye ar 1 12/20/2022 Transportation Needs Answer Date Record ed Lack of Transportation (Medical) 1 12/20/2022 Housing Stability Answer Date Recorded Unable to Pay for Housing in the Last Year 1 12/20/2022 Sex and Gender Information Value Date Recorded Sex Assigned at Not on file Gender Identity Not on file Sexual Orientation Not on file Obstetrics History Last Filed Vital Signs Vital Sign Reading Time Taken Comments Blood Pressure 120/74 03/08/2023 7:38 AM AURICULAR DETOXIFICATION SPECIALIST Pulse 90 03/08/2023 7:38 AM AURICULAR DETOXIFICATION SPECIALIST Temperature 37.2 ??C (99 ??F) 09/26/2021 9:55 AM CDT Respiratory Rate 18 12/02/2019 9:03 AM CDT Oxygen Saturation 97% 03/08/2023 7:38 AM AURICULAR DETOXIFICATION SPECIALIST Inhaled Oxygen Concentration - - Weight 88.9 kg (196 lb) 02/06/2023 7:53 AM AURICULAR DETOXIFICATION SPECIALIST Height 166.4 cm (5' 5.5) 02/06/2023 7:53 AM AURICULAR DETOXIFICATION SPECIALIST Body Mass Index 32.12 02/06/2023 7:53 AM AURICULAR DETOXIFICATION SPECIALIST Plan of Treatment Upcoming Encounters Date Type Department Care Team (Late st Contact Info) Description 05/15/2023 10:40 AM CDT Office Visit [facility] [place] [facility] [address] [place] [address] Héctor Bruno MD [address] [place] [address] Health Maintenance Due Date Last Done Comments COVID-19 vaccine series (2022-24 season) 2022 12/06/2021, 06/06/2021, 12/16/2020, Additional history exists Mammogram for age 45-75 12/26/2023 12/26/19, 10/30/2021, 11/19/2019 Medicare Wellness for age 65+ 02/06/2024, 01/01/2022, 11/09/2019 BMI (ht and wt on same day) for age 18+ 02/07/2024 02/06/2023, 01/08/2022, 01/01/2022, Additional history exists Depression screening for age 12+ 02/08/2024 02/07/2023, 02/06/2023, 10/18/2022, Additional history exists CT Colonography for age 45-75 03/01/2025 03/01/2020 Lipids for age 45-75 02/07/2028 02/06/2023, 01/01/2022, 10/16/2021, Additional history exists Tetanus booster 07/24/2028 07/24/2018, 07/09/2007 Tdap Completed 07/24/2018, 07/09/2007 DEXA/DXA scan for age 65+ Completed 11/11/2019 Fecal testing non-DNA (FIT,FOBT,iFOBT) for age 45-75 Discontinued 11/25/2019 Zoster (shingles) series for age 50+ Completed 07/20/2020, 03/07/2020 Pneumococcal series for age 65+ Completed , 11/09/2019 Influenza for age 65+ Completed 12/04/2022 , 12/06/2021, 12/16/2020, Additional history exists Hepatitis C screening for ag e 18-79 Completed 03/08/2023, 01/01/2022 Procedures Procedure Name Priority Date/Time Associated Diagnosis Comments C4 COMPLEMENT Routine 03/20/2023 2:13 PM AURICULAR DETOXIFICATION SPECIALIST Positive ZEYNEP (antinuclear antibody) C3 COMPLEMENT Routine 03/20/2023 2:13 PM AURICULAR DETOXIFICATION SPECIALIST Positive ZEYNEP (antinuclear antibody) IMMUNOFIXATION ELP, URINE Routine 03/08/2023 8:54 AM AURICULAR DETOXIFICATION SPECIALIST Tingling of both feet VITAMIN B12 Routine 03/08/2023 8:49 AM AURICULAR DETOXIFICATION SPECIALIST Tingling of both feet PROTEIN ELP SERUM W REFLEX Routine 03/08/2023 8:49 AM AURICULAR DETOXIFICATION SPECIALIST Tingling of both feet CBC W PLT NO DIFF Routine 03/08/2023 8:4 9 AM AURICULAR DETOXIFICATION SPECIALIST Tingling of both feet PHOSPHORUS Routine 03/08/2023 8:49 AM AURICULAR DETOXIFICATION SPECIALIST Tingling of both feet MAGNESIUM Routine 03/08/2023 8:49 AM AURICULAR DETOXIFICATION SPECIALIST Tingling of both feet FOLIC ACID Routine 03/08/2023 8:49 AM AURICULAR DETOXIFICATION SPECIALIST Tingling of both feet ANTINUCLEAR ANTIBODY BY IFA Routine 03/08/2023 8:49 AM AURICULAR DETOXIFICATION SPECIALIST Tingling of both feet ANTI HCV Routine 03/08/2023 8:49 AM AURICULAR DETOXIFICATION SPECIALIST Tingling of both feet ANTI HIV 1/2 Routine 03/08/2023 8:49 AM AURICULAR DETOXIFICATION SPECIALIST Tingling of both feet TSH Routine 03/08/2023 8:49 AM AURICULAR DETOXIFICATION SPECIALIST Tingling of both feet PATH TISSUE EXAM Routine 03/08/2023 8:22 AM AURICULAR DETOXIFICATION SPECIALIST Changing skin lesion EMG Routine 02/28/2023 Tingling of both feet HEMOGLOBIN Routine 02/06/2023 9:21 AM AURICULAR DETOXIFICATION SPECIALIST Restless leg Rectal bleeding FERRITIN Routine 02/06/2023 9:21 AM AURICULAR DETOXIFICATION SPECIALIST Restless leg Rectal bleeding BASIC METABOLIC PANEL Routine 02/06/2023 9:21 AM AURICULAR DETOXIFICATION SPECIALIST Hyperlipidemia, unspecified hyperlipidemia type LIPID PANEL W REFLEX MEASURED LDL Routine 02/06/2023 9:21 AM AURICULAR DETOXIFICATION SPECIALIST Hyperlipidemia, unspecified hyperlipidemia type CTA CHEST - DUAL READ Routine 01/16/2023 9:34 AM AURICULAR DETOXIFICATION SPECIALIST Aneurysm of ascending aorta without rupture (HC) CREATININE,ISTAT Routine 01/16/2023 9:03 AM AURICULAR DETOXIFICATION SPECIALIST XR MAMMO LA BILAT SCREEN Routine 12/25/2022 9:20 AM AURICULAR DETOXIFICATION SPECIALIST Visit for screening mammogram XR SHOULDER 3 VIEWS RIGHT Routine 12/20/2022 3:18 PM CDT Acute pain of right shoulder from Last 3 Months Results * (ABNORMAL) C3 COMPLEMENT (03/20/2023 2:13 PM AURICULAR DETOXIFICATION SPECIALIST) C3 COMPLEMENT 169.84(H) 81.10 - 157.00 mg/dL 03/21/2023 10:17 AM AURICULAR DETOXIFICATION SPECIALIST [facility] [employer] [facility] Blood BLOOD SPECIMEN / Unknown Butterfly / Unknown 03/20/2023 2:13 PM AURICULAR DETOXIFICATION SPECIALIST 03/20/2023 2:14 PM AURICULAR DETOXIFICATION SPECIALIST Iris Brantley DO [facility] [address] [place] [address], * (ABNORMAL) C4 COMPLEMENT (03/20/2023 2:13 PM AURICULAR DETOXIFICATION SPECIALIST) C4 Complement 48.64(H) 12.90 - 39.20 mg/dL 03/21/2023 10:17 AM AURICULAR DETOXIFICATION SPECIALIST [facility] Blood BLOOD SPECIMEN / Unknown Butterfly / Unknown 03/20/2023 2:13 PM AURICULAR DETOXIFICATION SPECIALIST 03/20/2023 2:14 PM AURICULAR DETOXIFICATION SPECIALIST Iris Bertha Brantley DO CHEMISTRY Performing Organization Address [facility]/ZIP Co de Phone Number [facility] [address] [place] [id number], [place] * IMMUNOFIXATION ELP, URINE (03/08/2023 8:54 AM AURICULAR DETOXIFICATION SPECIALIST) Pathologist [facility] IFIX INTERP,URINE Immunofixation on urine shows no monoclonal protein detected and no free light chains detected. Interpreted and electronically signed by: Tali Hameed MD 03/12/2023 6:28 PM [facility] PROTEIN QUANT,RAND URINE 8 1 - 14 mg/dL 03/12/2023 6:28 PM AURICULAR DETOXIFICATION SPECIALIST [facility] Urine URINE SPECIMEN / Unknown Non-Blood / Unknown 03/08/2023 8:54 AM AURICULAR DETOXIFICATION SPECIALIST 03/08/2023 8:55 AM AURICULAR DETOXIFICATION SPECIALIST Iris Brantley DO URINE Performing Organization Address [facility] Co de Phone Number [facility] [address] [place] [address], * PROTEIN ELP SERUM W REFLEX (03/08/2023 8:49 AM AURICULAR DETOXIFICATION SPECIALIST) ELP,ALBUMIN 4.01 3.31 - 5.31 g/dL 03/12/2023 2:14 PM AURICULAR DETOXIFICATION SPECIALIST [facility] ELP,ALPHA 1 0.30 0.19 - 0.42 g/dL 03/12/2023 2:14 PM AURICULAR DETOXIFICATION SPECIALIST [facility] ELP,ALPHA 2 0.65 0.44 - 1.03 g/dL 03/12/2023 2:14 PM AURICULAR DETOXIFICATION SPECIALIST [facility] ELP,GAMMA 0.87 0.59 - 1.46 g/dL 03/12/2023 2:14 PM AURICULAR DETOXIFICATION SPECIALIST [facility] ELP,BETA 0.78 0.52 - 1.05 g/dL 03/12/2023 2:14 PM AURICULAR DETOXIFICATION SPECIALIST [facility] ELP INTERP,SERUM Normal electrophoretic pattern. No monoclonal protein detected. Interpreted and electronically signed by: Tali Hameed MD 03/12/2023 2:14 PM AURICULAR DETOXIFICATION SPECIALIST [facility] PROTEIN,TOTA L 6.6 6.0 - 8.0 g/dL 03/12/2023 2:14 PM AURICULAR DETOXIFICATION SPECIALIST [facility] Blood BLOOD SPECIMEN / Unknown Venipuncture / Unknown 03/08/2023 8:49 AM AURICULAR DETOXIFICATION SPECIALIST 03/08/2023 8:54 AM AURICULAR DETOXIFICATION SPECIALIST Iris Brantley DO CHEMISTRY [facility] [address] [address], [place] * (ABNORMAL) ANTINUCLEAR ANTIBODY BY IFA (03/08/2023 8:49 AM AURICULAR DETOXIFICATION SPECIALIST) ANTINUCLEAR ANTIBODY (ZEYNEP) Positive( A) Negative 03/11/2023 1:15 PM AURICULAR DETOXIFICATION SPECIALIST [facility] ZEYNEP PATTERN 1 Homogenou s(A) (none) 03/11/2023 1:15 PM AURICULAR DETOXIFICATION SPECIALIST [facility] ZEYNEP TITER 1 1:160(A) (none) 03/11/2023 1:15 PM AURICULAR DETOXIFICATION SPECIALIST [facility] Blood BLOOD SPECIMEN / Unknown Venipuncture / Unknown 03/08/2023 8:49 AM AURICULAR DETOXIFICATION SPECIALIST 03/08/2023 8:54 AM AURICULAR DETOXIFICATION SPECIALIST Narrative [facility] - 03/11/2023 1:15 PM AURICULAR DETOXIFICATION SPECIALIST Method: ZEYNEP screen performed by (IFA) on HEP-2 substrate, IgG Iris Brantley DO CHEMISTRY [facility] [address] [place] [address], [place] * TSH (03/08/2023 8:49 AM AURICULAR DETOXIFICATION SPECIALIST) TSH 3.03 0.27 - 4.20 uIU/mL 03/08/2023 5:56 PM AURICULAR DETOXIFICATION SPECIALIST [facility] Blood BLOOD SPECIMEN / Unknown Venipuncture / Unknown 03/08/2023 8:49 AM AURICULAR DETOXIFICATION SPECIALIST 03/08/2023 8:54 AM AURICULAR DETOXIFICATION SPECIALIST Narrative [facility] - 03/08/2023 5:56 PM AURICULAR DETOXIFICATION SPECIALIST In Adults, TSH values between 5.00 and 10.00 uIU/ml do not necessarily indicate the presence of Hypothyroidism. Correlation with clinical findings such as presence of goiter and/or Thyroperoxidase (TPO) Antibody may be helpful. For more information please refer to SHAWN 2004; 291: [id number]. Iris Brantley DO CHEMISTRY Performing Organization Address City/[facility] Co de Phone Number [facility] [address] [place] [address], * ANTI HCV (03/08/2023 8:49 AM AURICULAR DETOXIFICATION SPECIALIST) Pathologist [facility] HEPATITIS C ANTIBODY Non-Reacti ve Non-React peter 03/08/2023 5:51 PM AURICULAR DETOXIFICATION SPECIALIST [facility] Comment:Please note, per www .CDC.gov: If a patient is known to be at high risk of HCV infection, or is symptomatic, and the physician's suspicion of HCV infection is high, HCV RNA testing is often employed and is of diagnostic value, even after an initial negative anti-HCV test result. Blood BLOOD SPECIMEN / Unknown Venipuncture / Unknown 03/08/2023 8:49 AM AURICULAR DETOXIFICATION SPECIALIST 03/08/2023 8:54 AM AURICULAR DETOXIFICATION SPECIALIST Iris Brantley DO SEND OUTS Performing Organization Address City/[facility]/ZIP Co de Phone Number [facility] [address] [place] [address], * CBC W PLT NO DIFF (03/08/2023 8:49 AM AURICULAR DETOXIFICATION SPECIALIST) Pathologist [facility] WHITE BLOOD COUNT 6.5 4.5 - 11.0 thou/cu mm 03/08/2023 9:00 AM AURICULAR DETOXIFICATION SPECIALIST [facility] RED BLOOD COUNT 4.35 4.00 - 5.20 mil/cu mm 03/08/2023 9:00 AM [facility] HEMOGLOBIN 13.2 12.0 - 16.0 g/dL 03/08/2023 9:00 AM [facility] HEMATOCRIT 39.6 33.0 - 51.0 % 03/08/2023 9:00 AM [facility] MCV 91 80 - 100 fL 03/08/2023 9:00 AM [facility] MCH 30.3 26.0 - 34.0 pg 03/08/2023 9:00 AM [facility] MCHC 33.3 32.0 - 36.0 g/dL 03/08/2023 9:00 AM [facility] RDW 14.0 11.5 - 15.5 % 03/08/2023 9:00 AM [facility] PLATELET COUNT 217 140 - 440 thou/cu mm 03/08/2023 9:00 AM [facility] MPV 9.5 6.5 - 11.0 fL 03/08/2023 9:00 AM [facility] Blood BLOOD SPECIMEN / Unknown Venipuncture / Unknown 03/08/2023 8:49 AM AURICULAR DETOXIFICATION SPECIALIST 03/08/2023 8:54 AM AURICULAR DETOXIFICATION SPECIALIST Iris Brantley DO HEMATOLOGY [facility] [address] [place] [address], * ANTI HIV 1/2 (03/08/2023 8:49 AM AURICULAR DETOXIFICATION SPECIALIST) HIV-1/HIV-2 SCREEN Non-Reacti ve Non-Reacti ve 03/08/2023 6:52 PM AURICULAR DETOXIFICATION SPECIALIST [facility] Comment:HIV-1 p24 and HIV-1/ HIV-2 Ab Not Detected. Blood BLOOD SPECIMEN / Unknown Venipuncture / Unknown 03/08/2023 8:49 AM AURICULAR DETOXIFICATION SPECIALIST 03/08/2023 8:54 AM AURICULAR DETOXIFICATION SPECIALIST Iris Brantley DO SEND OUTS Performing Organization Address City/[facility]/ZIP Co de Phone Number [facility] [address] [place] [phone], [place] * PHOSPHATE (03/08/2023 8:49 AM AURICULAR DETOXIFICATION SPECIALIST) PHOSPHORUS 4.0 2.5 - 4.5 mg/dL 03/08/2023 5:56 PM AURICULAR DETOXIFICATION SPECIALIST [facility] Blood BLOOD SPECIMEN / Unknown Venipuncture / Unknown 03/08/2023 8:49 AM AURICULAR DETOXIFICATION SPECIALIST 03/08/2023 8:54 AM AURICULAR DETOXIFICATION SPECIALIST Iris Bertha Brantley DO CHEMISTRY Performing Organization Address [facility] Co de Phone Number [facility] [address] [place] [address], [place] * MAGNESIUM (03/08/2023 8:49 AM AURICULAR DETOXIFICATION SPECIALIST) MAGNESIUM 2.4 1.6 - 2.4 mg/dL 03/08/2023 5:56 PM AURICULAR DETOXIFICATION SPECIALIST [facility] Blood BLOOD SPECIMEN / Unknown Venipuncture / Unknown 03/08/2023 8:49 AM AURICULAR DETOXIFICATION SPECIALIST 03/08/2023 8:54 AM AURICULAR DETOXIFICATION SPECIALIST Iris Bertha Brantley DO CHEMISTRY Performing Organization Address [facility] Co de Phone Number [facility] [address] [place] [id number], [place] * FOLIC ACID (03/08/2023 8:49 AM AURICULAR DETOXIFICATION SPECIALIST) FOLIC ACID 19.3 4.6 - 34.8 ng/mL 03/08/2023 6:16 PM AURICULAR DETOXIFICATION SPECIALIST [facility] Blood BLOOD SPECIMEN / Unknown Venipuncture / Unknown 03/08/2023 8:49 AM AURICULAR DETOXIFICATION SPECIALIST 03/08/2023 8:54 AM AURICULAR DETOXIFICATION SPECIALIST Narrative [facility] - 03/08/2023 6:16 PM AURICULAR DETOXIFICATION SPECIALIST Biotin supplements may cause clinically significant interference for this test assay. ??If interference is suspected, it is strongly recommended that biotin is discontinued for at least one week prior to retesting. Iris Brantley DO CHEMISTRY Performing Organization Address [facility] de Phone Number [facility] [address] [place] [address], * VITAMIN B12 (03/08/2023 8:49 AM AURICULAR DETOXIFICATION SPECIALIST) Pathologist [facility] VITAMIN B12 737 232 - 1,245 pg/mL 03/08/2023 6:16 PM AURICULAR DETOXIFICATION SPECIALIST [facility] Blood BLOOD SPECIMEN / Unknown Venipuncture / Unknown 03/08/2023 8:49 AM AURICULAR DETOXIFICATION SPECIALIST 03/08/2023 8:54 AM AURICULAR DETOXIFICATION SPECIALIST Narrative [facility] - 03/08/2023 6:16 PM AURICULAR DETOXIFICATION SPECIALIST Biotin supplements may cause clinically significant interference for this test assay. ??If interference is suspected, it is strongly recommended that biotin is discontinued for at least one week prior to retesting. Iris Brantley DO CHEMISTRY Performing Organization Address [facility] de Phone Number [facility] [address] [place] [address], * PATH TISSUE EXAM (03/08/2023 8:22 AM AURICULAR DETOXIFICATION SPECIALIST) Pathologist [facility] Case Report Pathology Report ?Case: [id number] ? Authorizing Provider: ??Iris Brantley DO ?Collected: ? 03/08/2023 0822 ? Ordering Location: ? [facility] ?? Received: ?03/08/2023 0847 ? Clinic ? Pathologist: ? Geneva Pfeiffer MD ? Specimen: ?Groin, right ? 03/12/2023 11:28 AM [facility] Final Diagnosis SKIN, RIGHT GROIN, BIOPSY: 1. Benign verrucous keratosis 2. Negative for malignancy 03/12/2023 11:28 AM [facility] Clinical Information Mole removal 03/12/2023 11:28 AM [facility] Gross Description A) Received in formalin, labeled with the patient's name and date of , is a 1.5 x 1.4 x 0.1 cm skin biopsy. There is a 1.5 x 1.4 x 0.1 cm verrucoid suarez lesion. The specimen is inked orange, serially sectioned and entirely submitted in one cassette. TLF 03/08/2023 03/12/2023 11:28 AM [facility] Microscopic Description The final diagnosis is based on microscopic examination of appropriate sections of all specimens. Sections reveal epidermal verrucous hyperplasia. No atypia or definitive viral cytopathic effect is seen. The presence of ??orange ink is confirmed on tissue sections. 03/12/2023 11:28 AM AURICULAR DETOXIFICATION SPECIALIST [facility] Additional Information Interpreted at [facility] - [address], [place] [address] 03/12/2023 11:28 AM AURICULAR DETOXIFICATION SPECIALIST [facility] Other SWAB OF GROIN / Unknown Non-Blood / Unknown 03/08/2023 8:22 AM AURICULAR DETOXIFICATION SPECIALIST 03/08/2023 8:47 AM AURICULAR DETOXIFICATION SPECIALIST Iris Branltey DO PATHOLOGY/CYTOLOGY [facility] [address] [place] [address], [place] * EMG (02/28/2023) Iris Brantley DO NEUROLOGY ORD * (ABNORMAL) LIPID PANEL W REFLEX MEASURED LDL (02/06/2023 9:21 AM AURICULAR DETOXIFICATION SPECIALIST) CHOLESTEROL,TOTAL 159 100 - 199 mg/dL 02/06/2023 4:32 PM AURICULAR DETOXIFICATION SPECIALIST [facility] Comment: Cholesterol, Total Reference Ranges Desirable <200 mg/dL Borderline 200-239 mg/dL High >=240 mg/dL TRIGLYCERIDES 217(H) <150 mg/dL 02/06/2023 4:32 PM AURICULAR DETOXIFICATION SPECIALIST [facility] HDL CHOLESTEROL 39(L) >40 mg/dL 4:32 PM AURICULAR DETOXIFICATION SPECIALIST [facility] NON-HDL CHOLESTEROL 120 <145 mg/dl 02/06/2023 4:32 PM AURICULAR DETOXIFICATION SPECIALIST [facility] CHOL/HDL RATIO 4.08 <4.50 02/06/2023 4:32 PM AURICULAR DETOXIFICATION SPECIALIST [facility] LDL CHOLESTEROL 77 <=130 mg/dL 02/06/2023 4:32 PM AURICULAR DETOXIFICATION SPECIALIST [facility] VLDL CHOLESTEROL 43(H) <=30 mg/dL 02/06/2023 4:32 PM AURICULAR DETOXIFICATION SPECIALIST [facility] PROVIDER ORDERED STATUS RANDOM 02/06/2023 4:32 PM AURICULAR DETOXIFICATION SPECIALIST [facility] Blood BLOOD SPECIMEN / Unknown Butterfly / Unknown 02/06/2023 9:21 AM AURICULAR DETOXIFICATION SPECIALIST 02/06/2023 9:21 AM AURICULAR DETOXIFICATION SPECIALIST Iris Brantley DO CHEMISTRY Performing Organization Address City/[facility]/ZIP Co de Phone Number [facility] [address] [place], [place] [id number], * HEMOGLOBIN (02/06/2023 9:21 AM AURICULAR DETOXIFICATION SPECIALIST) HEMOGLOBIN 13.6 12.0 - 16.0 g/dL 02/06/2023 9:29 AM AURICULAR DETOXIFICATION SPECIALIST [facility] MCV 89 80 - 100 fL 02/06/2023 9:29 AM AURICULAR DETOXIFICATION SPECIALIST [facility] Blood BLOOD SPECIMEN / Unknown Butterfly / Unknown 02/06/2023 9:21 AM AURICULAR DETOXIFICATION SPECIALIST 02/06/2023 9:21 AM AURICULAR DETOXIFICATION SPECIALIST Iris Brantley HEMATOLOGY Performing Organization Address [facility] Co de Phone Number [facility] [address] [place] [address], * (ABNORMAL) FERRITIN (02/06/2023 9:21 AM AURICULAR DETOXIFICATION SPECIALIST) FERRITIN 251.0(H) 15.0 - 150.0 ng/mL 02/06/2023 5:08 PM AURICULAR DETOXIFICATION SPECIALIST [facility] Blood BLOOD SPECIMEN / Unknown Butterfly / Unknown 02/06/2023 9:21 AM AURICULAR DETOXIFICATION SPECIALIST 02/06/2023 9:21 AM AURICULAR DETOXIFICATION SPECIALIST Iris Brantley CHEMISTRY Performing Organization Address City/[facility]/ZIP Co de Phone Number [facility] [address] [place] [address], * (ABNORMAL) BASIC METABOLIC PANEL (02/06/2023 9:21 AM AURICULAR DETOXIFICATION SPECIALIST) SODIUM 142 136 - 145 mmol/L 02/06/2023 4:32 PM AURICULAR DETOXIFICATION SPECIALIST [facility] POTASSIUM 4.2 3.5 - 5.1 mmol/L 02/06/2023 4:32 PM AURICULAR DETOXIFICATION SPECIALIST [facility] CHLORIDE 106 98 - 107 mmol/L 02/06/2023 4:32 PM [facility] CO2,TOTAL 25 22 - 29 mmol/L 02/06/2023 4:32 PM [facility] ANION GAP 11 5 - 18 02/06/2023 4:32 PM [facility] GLUCOSE 109(H) 70 - 99 mg/dL 02/06/2023 4:32 PM [facility] CALCIUM 9.6 8.8 - 10.2 mg/dL 02/06/2023 4:32 PM [facility] BUN 17 8 - 23 mg/dL 02/06/2023 4:32 PM [facility] CREATININE 0.88 0.50 - 0.90 mg/dL 02/06/2023 4:32 PM [facility] BUN/CREAT RATIO 19 10 - 20 4:32 PM [facility] eGFR 70(L) >90 mL/min/1.7 3m2 02/06/2023 4:32 PM [facility] Comment:As of 2021, eG FR is calculated by the CKD-EPI creatinine equation without race adjustment. ??eGFR can be influenced by muscle mass, exercise, and diet. ??The reported eGFR is an estimation only and is only applicable if the renal function is stable. Blood BLOOD SPECIMEN / Unknown Butterfly / Unknown 02/06/2023 9:21 AM AURICULAR DETOXIFICATION SPECIALIST 02/06/2023 9:21 AM AURICULAR DETOXIFICATION SPECIALIST Iris Brantley DO CHEMISTRY [facility] [address] [place] [address], * CTA CHEST - DUAL READ (01/16/2023 9:34 AM AURICULAR DETOXIFICATION SPECIALIST) Anatomical Region Laterality Modality CHEST Computed Tomogra phy Impressions 01/17/2023 8:17 PM AURICULAR DETOXIFICATION SPECIALIST 1. No acute nonvascular findings the chest. 2. Please refer to separately dictated report for evaluation of cardiovascular structures. Please note that all CT scans at this facility use dose modulation, iterative reconstruction, and/or weight-based dosing when appropriate to reduce radiation dose to as low as reasonably achievable. Dictated by Richard Villalobos MD @ 01/17/2023 5:53:53 PM Signed by: Richard Villalobos MD @01/17/2023 5:53:53 PM Narrative 01/17/2023 8:17 PM AURICULAR DETOXIFICATION SPECIALIST STUDY: THORACIC AORTIC CT ANGIOGRAM Study date: 01/16/2023 Indication: 72 year-old woman with a past medical history of ascending aorta aneurysm who has been referred for evaluation of thoracic aorta size and morphology. STUDY PARAMETERS: Scanner: Siemens Definition Force Contrast: 80 ml of Omnipaque 350 Scan protocol: ??FLASH Radiation dose length product: 164 Image quality: Excellent FINDINGS: Coronary arteries :right dominant circulation with mild coronary artery calcifications. Aortic valve: Trileaflet valve. Pericardium: Normal without effusion. Pulmonary trunk: Maximum cross-sectional diameters are 30 x 29 mm. Vena cavae: Normal attachments to the right atrium. Thoracic aorta: Left-sided arch. None atheromatous disease in the aortic sinus, ascending aorta, arch, and descending thoracic aorta. Maximum cross-sectional dimensions are - Aortic sinus: 39 x 38 x 38 mm from cusps to opposing cusp ??and cross-sectional area of 10.8 cm2. Area to height index of 6.5 cm2/m. Compared to last contrasted study 10/17/2021 unchanged ([id number] mm) remeasured during this reading. Ascending aorta: 40 x 39 mm and cross-sectional area of 12.1 cm2. ??Area to height index of 7.3 cm2/m. Compare to last contrasted study in 09/2021 [id number] remeasured during this reading. Arch: 33 x 32 mm Descending thoracic aorta: 23 x 22 mm. Great arteries: Normal great artery branching pattern. ??Brachiocephalic artery Patent. ??Visualized right subclavian artery Patent. ??Visualized right common carotid artery Patent. ??Visualized left common carotid artery Patent. ??Visualized left subclavian artery Patent. Nonvascular findings: Please see separate radiology report Final Impressions: 1. Enlarged ascending aorta with maximum cross-sectional diameters of 40 x 39 mm and maximum cross-sectional area to height ratio of 7.3 cm2/m. 2. Mildly dilated aortic sinus 39 x 38 x 38 mm from cusps to opposing cusp . Area to height index of 6.5 cm2/m 3. Right dominant coronary arterial system with mild calcifications. 4. Compared to 10/17/2021 CT-PE study, no significant interval changes in ascending aorta or aortic sinus. FOR PATIENT: Results are automatically released to your [employer] account once available, in compliance with federal regulations. ?? This means that you may see your results before your provider has had a chance to review them. ??Please allow 2-3 business days for your provider to comment on the results. Cardiac imaging fellow: Rolly Joel MD Reading sheeter operator: Brandon Berkowitz MD 01/16/2023 For Patients: As a result of the Cures Act, medical imaging exams and procedure reports are released immediately into your electronic medical record. ??You may view this report before your referring provider. ?? If you have questions, please contact your health care provider. OVER-READ ? OVER-READ ?OVER-READ OVER-READ: DETAILED RADIOLOGY EXTRACARDIAC OVER-READ OF CARDIAC CT 01/16/2023 CLINICAL HISTORY: Ascending aortic aneurysm. Cardiac over-read. TECHNIQUE : Please refer to separately dictated report for details of technique. 80 cc Omnipaque 350. This exam is being performed in conjunction with the services provided by the [facility] ([facility]). FINDINGS: Chest: No significant lymphadenopathy in the chest. Main pulmonary artery is normal in caliber. No central filling defects within the main, left, and right pulmonary arteries. Stable appearing noncalcified pleural nodularity/plaques are seen in the right upper and lower lobes. Stable eventration of the right hemidiaphragm. Stable linear scarring at the right lung apex. Upper abdomen: No acute findings in the visualized portions. Musculoskeletal: Visualized osseous structures demonstrate diffuse degenerative changes. Joy ALBRECHT CT * (ABNORMAL) CREATININE,ISTAT (01/16/2023 9:03 AM AURICULAR DETOXIFICATION SPECIALIST) CREATININE, POCT 1.00 0.57 - 1.11 mg/dL 01/16/2023 2:15 PM AURICULAR DETOXIFICATION SPECIALIST [facility] Comment:Caution: Patients ta gabe Hydroxyurea have falsely increased iStat Creatinine results. Verify creatinine results ordering a Creatinine (99407.2) eGFR 60(L) >90 mL/min/1.7 3m2 01/16/2023 2:15 PM AURICULAR DETOXIFICATION SPECIALIST [facility] Comment:As of 2021, eG FR is calculated by the CKD-EPI creatinine equation without race adjustment. eGFR can be influenced by muscle mass, exercise, and diet. The reported eGFR is an estimation only and is only applicable if the renal function is stable. Blood BLOOD SPECIMEN / Unknown 01/16/2023 9:03 AM AURICULAR DETOXIFICATION SPECIALIST 01/16/2023 2:15 PM AURICULAR DETOXIFICATION SPECIALIST Joy ALBRECHT CHEMISTRY [facility] [address] [place] [address], [place] * XR MAMMO LA BILAT SCREEN (12/25/2022 9:20 AM AURICULAR DETOXIFICATION SPECIALIST) Anatomical Region Laterality Modality BREASTS, Breast Left, Breast Right Bilateral Mammography Impressions 12/25/2022 3:46 PM AURICULAR DETOXIFICATION SPECIALIST ??There is no radiographic evidence for malignancy. ??Recommend annual mammograms. MAMMOGRAM ASSESSMENT: ??ACR 1 Negative PATIENTS: You will also receive a letter with your examination results in an easy to read format. ??If you have questions about your results, please contact your referring provider. Narrative 12/25/2022 3:46 PM AURICULAR DETOXIFICATION SPECIALIST For Patients: As a result of the 21st Century Cures Act, medical imaging exams and procedure reports are released immediately into your electronic medical record. You may view this report before your referring provider. If you have questions, please contact your health care provider. XR MAMMO LA BILAT SCREEN [[id number]] CLINICAL HISTORY: ??This is an asymptomatic 72 y.o. patient. INDICATION FOR EXAM: Mammogram Screening. TECHNIQUE: CC & MLO views were obtained. ??This study was evaluated with the assistance of Computer-Aided Detection. Breast Tomosynthesis was used in interpretation. COMPARISON FILM: Yes 10/30/21 [facility] 11/19/19 [facility] FINDINGS: ??The breasts have scattered areas of fibroglandular density. There are no dominant masses, suspicious micro calcifications or areas of architectural distortion. Iris Brantley DO MAMMO * XR SHOULDER 3 VIEWS RIGHT (12/20/2022 3:18 PM CDT) Anatomical Region Laterality Modality SHOULDERS, SHOULDER R Computed R adiography 12/20/2022 3:57 PM CDT Narrative 12/20/2022 3:57 PM CDT For Patients: ??As a result of the Cures Act, medical imaging exams and procedure reports are released immediately into your electronic medical record. ??You may view this report before your referring provider. ??If you have questions, please contact your health care provider. Indication: Right shoulder pain. Technique: Right shoulder 3 views. Comparison: CT chest 12/19/2021 Findings: Chronic changes to the glenoid with associated glenohumeral spurring. Subacromial spur. No acute fracture. Scarring at the right lung base with lateral lobular pleural thickening. This is unchanged. Impression: Glenohumeral compartment degenerative joint disease with chronic changes of the glenoid and subacromial spur formation which likely predisposes to clinical impingement. Dictated by Jose L Holder MD @ Dec ??2 2022 ??3:57PM (Electronically Signed) ?? Procedure Note Jose L Holder MD - 12/20/2022 For Patients: As a result of the Cures Act, medical imagingexams and procedure reports are released immediately into your electronicmedical record. You may view this report before your referring provider.If you have questions, please contact your health care provider. Indication: Right shoulder pain. Technique: Right shoulder 3 views. Comparison: CT chest 12/19/2021 Findings: Chronic changes to the glenoid with associated glenohumeral spurring.Subacromial spur. No acute fracture. Scarring at the right lung base withlateral lobular pleural thickening. This is unchanged. Impression: Glenohumeral compartment degenerative joint disease with chronic changesof the glenoid and subacromial spur formation which likely predisposes toclinical impingement. 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
--- NOTE | 2023-03-21 13:45 | MR_ITS ---
[address] [address] Phone:?[phone] Fax:?[phone] Referring Physician Information: Norm Griffith M.D. [address] [facility] [address] Phone:?[phone] Fax:?[phone] Patient:Rocio Clarke D.O.B:?1950 Sex:?Female Phone:?[phone] [facility] MRN:?[id number] Exam Date:?03/21/2023 EXAM: MRI of the RIGHT SHOULDER, without contrast CLINICAL INFORMATION: Female, 72 years old, with right shoulder pain. INDICATION: Evaluate for rotator cuff tear. PRIOR SURGERY: None reported. PLAIN FILMS: Shoulder radiographs dated 12/20/2022. COMPARISONS: No prior MRIs available. TECHNICAL INFORMATION: Using a 1.5T MR scanner and a localizing surface coil: coronal obliques: PD, T2, STIR sagittal obliques: PD, T2 axials: PD, T2 SEDATION: None CONTRAST: None FINDINGS: Bones: Proximal humerus: No fracture or marrow edema/pathology. No humeral Hill-Sachs or reverse Hill-Sachs lesion/impaction or contusion. Glenoid: No fracture or marrow edema/pathology. No osseous Bankart lesion. Rotator cuff and muscles/tendons: Supraspinatus: Moderate supraspinatus tendinopathy with full-width partial- thickness articular surface tearing involving approximately 75% of the tendon thickness with retraction of the torn deep fibers to the medial aspect of the humeral head and a superimposed focal full-thickness component the anterior insertional footprint measuring 8 x 6 mm (sagittal T2 series 8 images 5 & 10 and coronal T2 series 6 images 9 & 13). No muscle atrophy. Infraspinatus: Moderate infraspinatus tendinopathy with full-width, partial- thickness articular surface tearing involving approximately one third of the tendon thickness (sagittal T2 series 8 image 7 and coronal T2 series 6 image 16). Teres minor: No tendinopathy, tear or atrophy. Subscapularis: Moderate-marked tendinopathy of the superior distal subscapularis, without tendon tear or muscle atrophy. Deltoid: No strain or atrophy. Coracoacromial arch: Acromion morphology: The acromion has type II morphology. No discrete subacromial osseous spur or os acromiale. Acromiohumeral space: The acromiohumeral space is within normal limits. Coracohumeral space: The coracohumeral space is within normal limits. Acromioclavicular joint: Joint: Mild AC joint arthropathy, without significant inferior osteophytosis or evidence of supraspinatus impingement. Ligaments: Coracoclavicular ligaments are intact. Bursae: Subacromial-subdeltoid: Moderate subacromial-subdeltoid bursitis. Subcoracoid: No convincing subcoracoid bursal thickening/bursitis. Biceps tendon: The long head of the biceps tendon is present within the bicipital groove. The intra-articular and extra-articular segments are intact without tendinosis, tenosynovitis, or displacement. Glenohumeral joint: Effusion/cyst: Small glenohumeral joint effusion. Articular cartilage: Humeral head: No osteochondral abnormality. Glenoid: No osteochondral abnormalities. Loose bodies: No discrete intra-articular body within the joint. Labrum:?No discrete labral tear or paralabral cyst identified on this non- arthrographic study. Inferior glenohumeral ligament/axillary pouch:?Mild-moderate thickening of inferior capsuloligamentous structures (coronal PD series 5 images 11-17). Additionally, there is soft tissue thickening throughout the rotator interval (sagittal T2 series 8 images 7-12). IMPRESSION: 1. Moderate supraspinatus tendinopathy with full-width, ouyhqxbligcc-eoqr-oqifa partial-thickness articular surface tearing and a superimposed 8 x 6 mm full- thickness tear at the anterior insertional footprint. 2. Moderate infraspinatus tendinopathy with full-width, low-grade partial- thickness articular surface tearing. 3. Moderate-marked subscapularis tendinopathy, without tear. 4. Mild AC joint arthropathy with moderate subacromial-subdeltoid bursitis. However, the acromiohumeral space is normal. 5. Findings in keeping with any clinical symptoms of adhesive capsulitis. 6. No labral tear or paralabral cyst. 7. No full-thickness chondral defect or evidence of glenohumeral joint osteoarthritis. BC Electronically signed on 03/22/2023 7:13:00 AM by Keo Melchor M.D.
== END 2023-03-21 13:17 | disposition home or self-care (01) ==
LOC: MRI 13:17
PROVIDERS: PCP Family Medicine; Visit Provider Orthopaedic Surgery Sports Medicine
DX: M25.511 Pain in right shoulder (principal); M75.101 Unspecified rotator cuff tear or rupture of right shoulder, not specified as traumatic; M75.51 Bursitis of right shoulder; M75.01 Adhesive capsulitis of right shoulder; M19.011 Primary osteoarthritis, right shoulder
CPT/HCPCS: 73221

== ENCOUNTER 2023-04-10 06:56 | Day surgery (SDC) | payer MEDICARE, SELFPAY ==
[2023-04-10] VITALS (22 sets, daily range): BP systolic 97–152; BP diastolic 45–89; PULSE 49–79; RESP 12–20; TEMP 2.9–37.2; O2SAT 88–97; BMI 32.3
--- OUTSIDE RECORDS SUMMARY | 2023-04-10 06:58 | XMS_ITS | Clinical Summary ---
Author Name Unknown Organization [employer] [facility] Address [place], [place] [address] Care Team Providers Care Sas Developer Name Role Phone Iris Brantley DO Primary Care Provider [phone] Allergies No known active allergies Medications Medication [...] Encounters Date Type Department Care Team Description 03/30/2023 Transcribe Orders [facility] [address] [address] Norm Griffith MD 03/29/2023 2:25 PM PHYSICAL THERAPY ASSISTANT Preop Visit [facility] [address] [place] [address] Melissa Palafox, Pre-Op Exam (PREOP, DOS 04/10/23, ROTATOR CUFF,[facility], DR [place], FAX [phone] / /) 03/29/2023 Travel 03/20/2023 2:00 PM PHYSICAL THERAPY ASSISTANT Orders Only [facility] [address] [place] [address] Lab, [place] Lab 03/20/2023 Travel 03/14/2023 Telephone [facility] [address] [place] [address] Iris Brantley, Results 03/14/[address] [facility] [address] [place] [address] Mandy EsparzaDO 03/13/2023 Orders Only [facility] [address] [place] [address] Iris Brantley, <No scans attached> 03/08/2023 10:12 AM PHYSICAL THERAPY ASSISTANT - 03/08/2023 11:59 PM PHYSICAL THERAPY ASSISTANT Hospital Encounter [address] [address] Amanda Brush PA Rein, Erik, PT 03/08/2023 7:30 AM PHYSICAL THERAPY ASSISTANT Procedure Only [facility] [address] [place] [address] Iris Brantley DO Derm Problem (Mole removal); Results (EMG)... 03/08/[address] [facility] [place] [facility] [address] [place] [address] Héctor Bruno MD Referral 03/08/2023 Travel 03/05/2023 8:43 AM PHYSICAL THERAPY ASSISTANT - 03/05/2023 11:59 PM PHYSICAL THERAPY ASSISTANT Hospital Encounter [address] [address] Amanda Brush PA Wegner, Angela V, TONAL REGULATOR 03/05/2023 Travel 02/28/2023 1:53 PM PHYSICAL THERAPY ASSISTANT - 02/28/2023 11:59 PM PHYSICAL THERAPY ASSISTANT Hospital Encounter [address] [address] Amanda Brush PA Rein, Erik, PT 02/28/2023 8:10 AM PHYSICAL THERAPY ASSISTANT - 02/28/2023 1:52 PM PHYSICAL THERAPY ASSISTANT Hospital Encounter [facility] EMG/EEG/EP [address] [address] Janelle Chase MD Tingling of both feet 02/28/2023 Travel 02/26/2023 8:42 AM PHYSICAL THERAPY ASSISTANT - 02/26/2023 11:59 PM PHYSICAL THERAPY ASSISTANT Hospital Encounter [address] [address] Amanda Brush PA Wegner, Angela V, TONAL REGULATOR 02/26/2023 Travel 02/25/2023 Refill [facility] [address] [place] [address] Iris Brantley, Refill Request (Trazodone) 02/18/2023 Orders Only [facility] Scanner 1 scan: (1-Ord) [facility], RT SHOULDER W/O CONTRAST, 02/18/2023 02/14/2023 1:28 PM PHYSICAL THERAPY ASSISTANT - 02/14/2023 11:59 PM PHYSICAL THERAPY ASSISTANT Hospital Encounter [address] [address] Amanda Brush, Cris Salazar, PT 02/14/2023 Travel 02/07/2023 10:58 AM PHYSICAL THERAPY ASSISTANT - 02/07/2023 11:59 PM PHYSICAL THERAPY ASSISTANT Hospital Encounter [address] [address] Amanda Brush, Homer Curtis, PT 02/07/2023 Travel 02/06/2023 7:30 AM PHYSICAL THERAPY ASSISTANT Office Visit [facility] [address] [place] [address] Iris Brantley, Medicare ANNUAL (subsequent) Visit (72 year old medicare); Immunization/Inject ion (COVID-19?); Sleep Problem (Trazadone not working); Constipation (Ongoing getting worse, rectal bleeding); Knee Pain/problem (Bilateral-right knee worse) 02/05/2023 8:41 AM PHYSICAL THERAPY ASSISTANT - 02/05/2023 11:59 PM PHYSICAL THERAPY ASSISTANT Hospital Encounter [address] [address] Amanda Brush PA Wegner, Angela V, TONAL REGULATOR 02/05/2023 Refill [facility] [address] [place] [address] Iris Brantley DO Refill Request (Gabapentin) 02/05/2023 Travel 01/25/2023 12:50 PM PHYSICAL THERAPY ASSISTANT Phone Office Visit [facility] [address] [place] [address] Amanda Brush PA Phone Visit (No vitals taken ); URI (Congestion started yesterday ); Pain (Body aches started yesterday ); Fatigue (Started two days ago ); Covid-19 Positive Result (Tested positive last night ) 01/25/2023 Telephone [facility] [address] [place] [address] Iris Brantley, Covid-19 Positive Result 01/25/2023 Travel 01/22/2023 12:54 PM PHYSICAL THERAPY ASSISTANT - 01/22/2023 11:59 PM PHYSICAL THERAPY ASSISTANT Hospital Encounter [address] [address] Amanda Brush PA Wegner, Smita Newton, TONAL REGULATOR 01/22/2023 Travel 01/17/2023 1:10 PM PHYSICAL THERAPY ASSISTANT - 01/17/2023 11:59 PM PHYSICAL THERAPY ASSISTANT Hospital Encounter [address] [address] Amanda Brush PA Rein, Erik, PT 01/17/2023 Travel 01/16/2023 9:00 AM PHYSICAL THERAPY ASSISTANT - 01/16/2023 11:59 PM PHYSICAL THERAPY ASSISTANT Hospital Encounter [facility] [address] [place] [address] Joy Nielsen PA Aneurysm of ascending aorta without rupture (HC) 01/15/2023 1:40 PM PHYSICAL THERAPY ASSISTANT - 01/15/2023 11:59 PM PHYSICAL THERAPY ASSISTANT Hospital Encounter [address] [address] Amanda Brush PA Wegner, Smita Newton, TONAL REGULATOR 01/15/2023 Travel from Last 3 Months Immunizations Name Administration Dates Next Due COVID-19 vaccine (Moderna 100mcg/0.5mL) HARPER TELLEZ 12/06/2021,06/06/2021,05/16/2020,04/18 HepA-HepB (Twinrix) 12/15/2002 Influenza, High-dose Inactivated [...] Sign Reading Time Taken Comments Blood Pressure 120/77 03/29/2023 2:29 PM PHYSICAL THERAPY ASSISTANT Pulse 64 03/29/2023 2:29 PM PHYSICAL THERAPY ASSISTANT Temperature 36.8 ??C (98.3 ??F) 03/29/2023 2:29 PM CS T Respiratory Rate 18 12/02/2019 9:03 AM CDT Oxygen Saturation 98% 03/29/2023 2:29 PM PHYSICAL THERAPY ASSISTANT Inhaled Oxygen Concentration - - Weight 88 kg (194 lb) 03/29/2023 2:29 PM PHYSICAL THERAPY ASSISTANT Height 166.5 cm (5' 5.55) 03/29/2023 2:29 PM CS T Body Mass Index 31.74 03/29/2023 2:29 PM PHYSICAL THERAPY ASSISTANT Plan of Treatment Upcoming Encounters Date Type Department Care Team (Late st Contact Info) Description 05/15/2023 10:40 AM CDT Office Visit [facility] [place] [facility] [address] [place] [address] Héctor Bruno MD [address] [place] [address] Health Maintenance Due Date Last Done Comments COVID-19 vaccine series ( season) 2022 12/06/2021, 06/06/2021, 12/16/2020, Additional history exists Mammogram for age 45-75 12/26/2023 12/26/19 23, 10/30/2021, 11/19/2019 Medicare Wellness for age 65+ 02/07/2024, 01/01/2022, 11/09/2019 Depression screening for age 12+ 02/08/2024 02/07/2023, 02/06/2023, 10/18/2022, Additional history exists BMI (ht and wt on same day) for age 18+ 03/29/2024 03/29/2023, 02/06/2023, 01/08/2022, Additional history exists CT Colonography for age [...] exists Hepatitis C screening for ag e 18- Completed 03/08/2023, 01/01/2022 Procedures Procedure Name Priority Date/Time Associated Diagnosis Comments C4 COMPLEMENT Routine 03/20/2023 2:13 PM PHYSICAL THERAPY ASSISTANT Positive ZEYNEP (antinuclear antibody) C3 COMPLEMENT Routine 03/20/2023 2:13 PM PHYSICAL THERAPY ASSISTANT Positive ZEYNEP (antinuclear antibody) SJOGRENS ANTIBODIES Routine 03/20/2023 2 :13 PM PHYSICAL THERAPY ASSISTANT Positive ZEYNEP (antinuclear antibody) IMMUNOFIXATION ELP, URINE Routine 03/08/2023 8:54 AM PHYSICAL THERAPY ASSISTANT Tingling of both feet VITAMIN B12 Routine 03/08/2023 8:49 AM PHYSICAL THERAPY ASSISTANT Tingling of both feet PROTEIN ELP SERUM W REFLEX Routine 03/08/2023 8:49 AM PHYSICAL THERAPY ASSISTANT Tingling of both feet CBC W PLT NO DIFF Routine 03/08/2023 8:4 9 AM PHYSICAL THERAPY ASSISTANT Tingling of both feet PHOSPHORUS Routine 03/08/2023 8:49 AM PHYSICAL THERAPY ASSISTANT Tingling of both feet MAGNESIUM Routine 03/08/2023 8:49 AM PHYSICAL THERAPY ASSISTANT Tingling of both feet FOLIC ACID Routine 03/08/2023 8:49 AM PHYSICAL THERAPY ASSISTANT Tingling of both feet ANTINUCLEAR ANTIBODY BY IFA Routine 03/08/2023 8:49 AM PHYSICAL THERAPY ASSISTANT Tingling of both feet ANTI HCV Routine 03/08/2023 8:49 AM PHYSICAL THERAPY ASSISTANT Tingling of both feet ANTI HIV 1/2 Routine 03/08/2023 8:49 AM PHYSICAL THERAPY ASSISTANT Tingling of both feet TSH Routine 03/08/2023 8:49 AM PHYSICAL THERAPY ASSISTANT Tingling of both feet PATH TISSUE EXAM Routine 03/08/2023 8:22 AM PHYSICAL THERAPY ASSISTANT Changing skin lesion EMG Routine 02/28/2023 Tingling of both feet SCAN-MRI INTERPRETATION 02/18/2023 12:00 AM PHYSICAL THERAPY ASSISTANT HEMOGLOBIN Routine 02/06/2023 9:21 AM PHYSICAL THERAPY ASSISTANT Restless leg Rectal bleeding FERRITIN Routine 02/06/2023 9:21 AM PHYSICAL THERAPY ASSISTANT Restless leg Rectal bleeding BASIC METABOLIC PANEL Routine 02/06/2023 9:21 AM PHYSICAL THERAPY ASSISTANT Hyperlipidemia, unspecified hyperlipidemia type LIPID PANEL W REFLEX MEASURED LDL Routine 02/06/2023 9:21 AM PHYSICAL THERAPY ASSISTANT Hyperlipidemia, unspecified hyperlipidemia type CTA CHEST - DUAL READ Routine 01/16/2023 9:34 AM PHYSICAL THERAPY ASSISTANT Aneurysm of ascending aorta without rupture (HC) CREATININE,ISTAT Routine 01/16/2023 9:03 AM PHYSICAL THERAPY ASSISTANT from Last 3 Months Results * SJOGRENS ANTIBODIES (03/20/2023 2:13 PM PHYSICAL THERAPY ASSISTANT) Ro52 Antibody <2.3 <=19.9 CU 03/25/2023 11:30 AM PHYSICAL THERAPY ASSISTANT [facility] Ro60 Antibody <4.9 <=19.9 CU 03/25/2023 11:30 AM PHYSICAL THERAPY ASSISTANT [facility] SS-B ANTIBODY <3.3 <=19.9 CU 03/25/2023 11:30 AM PHYSICAL THERAPY ASSISTANT [facility] Blood BLOOD SPECIMEN / Unknown Butterfly / Unknown 03/20/2023 2:13 PM PHYSICAL THERAPY ASSISTANT 03/20/2023 2:14 PM PHYSICAL THERAPY ASSISTANT Narrative [facility] - 03/25/2023 11:30 AM PHYSICAL THERAPY ASSISTANT Reference Range: ? < 20 CU Negative ?? >=20 CU Positive These results were obtained with the Green Chipsa Flash SS-B, Ro52, Ro60 chemiluminescent immunoassay. Values obtained with different manufacturers' methods may not be used interchangeably. The magnitude of the reported autoantibody levels cannot always be correlated to an endpoint titer. ? Iris Brantley DO SEND OUTS Performing Organization Address [facility] Co de Phone Number [facility] [address] * (ABNORMAL) C3 COMPLEMENT (03/20/2023 2:13 PM PHYSICAL THERAPY ASSISTANT) C3 COMPLEMENT 169.84(H) 81.10 - 157.00 mg/dL 03/21/2023 10:17 AM PHYSICAL THERAPY ASSISTANT [facility] Blood BLOOD SPECIMEN / Unknown Butterfly / Unknown 03/20/2023 2:13 PM PHYSICAL THERAPY ASSISTANT 03/20/2023 2:14 PM PHYSICAL THERAPY ASSISTANT Iris Brantley DO CHEMISTRY Performing Organization Address [facility]/ZIP Co de Phone Number [facility] [address] [place] [address] * (ABNORMAL) C4 COMPLEMENT (03/20/2023 2:13 PM PHYSICAL THERAPY ASSISTANT) C4 Complement 48.64(H) 12.90 - 39.20 mg/dL 03/21/2023 10:17 AM PHYSICAL THERAPY ASSISTANT [facility] Blood BLOOD SPECIMEN / Unknown Butterfly / Unknown 03/20/2023 2:13 PM PHYSICAL THERAPY ASSISTANT 03/20/2023 2:14 PM PHYSICAL THERAPY ASSISTANT Iris Ann Karon RUEDA CHEMISTRY Performing Organization Address [facility] Co de Phone Number [facility] [address] [address], [place] * IMMUNOFIXATION ELP, URINE (03/08/2023 8:54 AM PHYSICAL THERAPY ASSISTANT) IFIX INTERP,URINE Immunofixation on urine shows no monoclonal protein detected and no free light chains detected. Interpreted and electronically signed by: Tali Hameed MD 03/12/2023 6:28 PM [facility] PROTEIN QUANT,RAND URINE 8 1 - 14 mg/dL 03/12/2023 6:28 PM PHYSICAL THERAPY ASSISTANT [facility] Urine URINE SPECIMEN / Unknown Non-Blood / Unknown 03/08/2023 8:54 AM PHYSICAL THERAPY ASSISTANT 03/08/2023 8:55 AM PHYSICAL THERAPY ASSISTANT Iris Brantley DO URINE Performing Organization Address [facility] Co de Phone Number [facility] [address] [place] [address], [place] * PROTEIN ELP SERUM W REFLEX (03/08/2023 8:49 AM PHYSICAL THERAPY ASSISTANT) ELP,ALBUMIN 4.01 3.31 - 5.31 g/dL 03/12/2023 2:14 PM PHYSICAL THERAPY ASSISTANT [facility] ELP,ALPHA 1 0.30 0.19 - 0.42 g/dL 03/12/2023 2:14 PM PHYSICAL THERAPY ASSISTANT [facility] ELP,ALPHA 2 0.65 0.44 - 1.03 g/dL 03/12/2023 2:14 PM PHYSICAL THERAPY ASSISTANT [facility] ELP,GAMMA 0.87 0.59 - 1.46 g/dL 03/12/2023 2:14 PM PHYSICAL THERAPY ASSISTANT [facility] ELP,BETA 0.78 0.52 - 1.05 g/dL 03/12/2023 2:14 PM PHYSICAL THERAPY ASSISTANT [facility] ELP INTERP,SERUM Normal electrophoretic pattern. No monoclonal protein detected. Interpreted and electronically signed by: Tali Hameed MD 03/12/2023 2:14 PM PHYSICAL THERAPY ASSISTANT [facility] PROTEIN,TOTA L 6.6 6.0 - 8.0 g/dL 03/12/2023 2:14 PM PHYSICAL THERAPY ASSISTANT [facility] Blood BLOOD SPECIMEN / Unknown Venipuncture / Unknown 03/08/2023 8:49 AM PHYSICAL THERAPY ASSISTANT 03/08/2023 8:54 AM PHYSICAL THERAPY ASSISTANT Iris Brantley [employer] Performing Organization Address [facility]/ZIP Co de Phone Number [facility] [address] [place] [phone], [place] * (ABNORMAL) ANTINUCLEAR ANTIBODY BY IFA (03/08/2023 8:49 AM PHYSICAL THERAPY ASSISTANT) ANTINUCLEAR ANTIBODY (ZEYNEP) Positive( A) Negative 03/11/2023 1:15 PM PHYSICAL THERAPY ASSISTANT [facility] ZEYNEP PATTERN 1 Homogenou s(A) (none) 03/11/2023 1:15 PM PHYSICAL THERAPY ASSISTANT [facility] ZEYNEP TITER 1 1:160(A) (none) 03/11/2023 1:15 PM PHYSICAL THERAPY ASSISTANT [facility] Blood BLOOD SPECIMEN / Unknown Venipuncture / Unknown 03/08/2023 8:49 AM PHYSICAL THERAPY ASSISTANT 03/08/2023 8:54 AM PHYSICAL THERAPY ASSISTANT Narrative [facility] - 03/11/2023 1:15 PM PHYSICAL THERAPY ASSISTANT Method: ZEYNEP screen performed by (IFA) on HEP-2 substrate, IgG Iris Brantley [employer] Performing Organization Address [facility]/ZIP Co de Phone Number [facility] [address] [place] [address], [place] * TSH (03/08/2023 8:49 AM PHYSICAL THERAPY ASSISTANT) Pathologist [facility] TSH 3.03 0.27 - 4.20 uIU/mL 03/08/2023 5:56 PM PHYSICAL THERAPY ASSISTANT [facility] Blood BLOOD SPECIMEN / Unknown Venipuncture / Unknown 03/08/2023 8:49 AM PHYSICAL THERAPY ASSISTANT 03/08/2023 8:54 AM PHYSICAL THERAPY ASSISTANT Narrative [facility] - 03/08/2023 5:56 PM PHYSICAL THERAPY ASSISTANT In Adults, TSH values between 5.00 and 10.00 uIU/ml do not necessarily indicate the presence of Hypothyroidism. Correlation with clinical findings such as presence of goiter and/or Thyroperoxidase (TPO) Antibody may be helpful. For more information please refer to SHAWN 2004; 291: 228-238. Iris Brantley DO CHEMISTRY Performing Organization Address [facility] Co de Phone Number [facility] [address] [place] [address], [place] * ANTI HCV (03/08/2023 8:49 AM PHYSICAL THERAPY ASSISTANT) Pathologist [facility] HEPATITIS C ANTIBODY Non-Reacti ve Non-React peter 03/08/2023 5:51 PM PHYSICAL THERAPY ASSISTANT [facility] Comment:Please note, per www .CDC.gov: If a patient is known to be at high risk of HCV infection, or is symptomatic, and the physician's suspicion of HCV infection is high, HCV RNA testing is often employed and is of diagnostic value, even after an initial negative anti-HCV test result. Blood BLOOD SPECIMEN / Unknown Venipuncture / Unknown 03/08/2023 8:49 AM PHYSICAL THERAPY ASSISTANT 03/08/2023 8:54 AM PHYSICAL THERAPY ASSISTANT Iris Brantley DO SEND OUTS Performing Organization Address City/[facility]/ZIP Co de Phone Number [facility] [address] [place] [phone], [place] * CBC W PLT NO DIFF (03/08/2023 8:49 AM PHYSICAL THERAPY ASSISTANT) [facility] WHITE BLOOD COUNT 6.5 4.5 - 11.0 thou/cu mm 03/08/2023 9:00 AM [facility] RED BLOOD COUNT 4.35 4.00 - 5.20 mil/cu mm 03/08/2023 9:00 AM [facility] HEMOGLOBIN 13.2 12.0 - 16.0 g/dL 03/08/2023 9:00 AM [facility] HEMATOCRIT 39.6 33.0 - 51.0 % 03/08/2023 9:00 AM [facility] MCV 91 80 - 100 fL 03/08/2023 9:00 AM [facility] MCH 30.3 26.0 - 34.0 pg 03/08/2023 9:00 AM [facility] MCHC 33.3 32.0 - 36.0 g/dL 03/08/2023 9:00 AM [facility] RDW 14.0 11.5 - 15.5 % 03/08/2023 9:00 AM [facility] PLATELET COUNT 217 140 - 440 thou/cu mm 03/08/2023 9:00 AM [facility] MPV 9.5 6.5 - 11.0 fL 03/08/2023 9:00 AM [facility] Blood BLOOD SPECIMEN / Unknown Venipuncture / Unknown 03/08/2023 8:49 AM PHYSICAL THERAPY ASSISTANT 03/08/2023 8:54 AM PHYSICAL THERAPY ASSISTANT Iris Br[place] [address], * ANTI HIV 1/2 (03/08/2023 8:49 AM PHYSICAL THERAPY ASSISTANT) HIV-1/HIV-2 SCREEN Non-Reacti ve Non-Reacti ve 03/08/2023 6:52 PM PHYSICAL THERAPY ASSISTANT [facility] Comment:HIV-1 p24 and HIV-1/ HIV-2 Ab Not Detected. Blood BLOOD SPECIMEN / Unknown Venipuncture / Unknown 03/08/2023 8:49 AM PHYSICAL THERAPY ASSISTANT 03/08/2023 8:54 AM PHYSICAL THERAPY ASSISTANT Iris Brantley DO SEND OUTS Performing Organization Address City/[facility]/ZIP Co de Phone Number [facility] [address] [address], [place] * PHOSPHATE (03/08/2023 8:49 AM PHYSICAL THERAPY ASSISTANT) PHOSPHORUS 4.0 2.5 - 4.5 mg/dL 03/08/2023 5:56 PM PHYSICAL THERAPY ASSISTANT [facility] Blood BLOOD SPECIMEN / Unknown Venipuncture / Unknown 03/08/2023 8:49 AM PHYSICAL THERAPY ASSISTANT 03/08/2023 8:54 AM PHYSICAL THERAPY ASSISTANT Iris Brantley DO CHEMISTRY Performing Organization Address City/[facility] Co de Phone Number [facility] [address] [phone], [place] * MAGNESIUM (03/08/2023 8:49 AM PHYSICAL THERAPY ASSISTANT) MAGNESIUM 2.4 1.6 - 2.4 mg/dL 03/08/2023 5:56 PM PHYSICAL THERAPY ASSISTANT [facility] Blood BLOOD SPECIMEN / Unknown Venipuncture / Unknown 03/08/2023 8:49 AM PHYSICAL THERAPY ASSISTANT 03/08/2023 8:54 AM PHYSICAL THERAPY ASSISTANT Iris Brantley DO CHEMISTRY Performing Organization Address City/[facility] Co de Phone Number [facility] [address] [address], [place] * FOLIC ACID (03/08/2023 8:49 AM PHYSICAL THERAPY ASSISTANT) FOLIC ACID 19.3 4.6 - 34.8 ng/mL 03/08/2023 6:16 PM PHYSICAL THERAPY ASSISTANT [facility] Blood BLOOD SPECIMEN / Unknown Venipuncture / Unknown 03/08/2023 8:49 AM PHYSICAL THERAPY ASSISTANT 03/08/2023 8:54 AM PHYSICAL THERAPY ASSISTANT Narrative [facility] - 03/08/2023 6:16 PM PHYSICAL THERAPY ASSISTANT Biotin supplements may cause clinically significant interference for this test assay. ??If interference is suspected, it is strongly recommended that biotin is discontinued for at least one week prior to retesting. Iris Brantley DO CHEMISTRY Performing Organization Address [facility] de Phone Number [facility] [address] [place] [address], * VITAMIN B12 (03/08/2023 8:49 AM PHYSICAL THERAPY ASSISTANT) Pathologist [facility] VITAMIN B12 737 232 - 1,245 pg/mL 03/08/2023 6:16 PM PHYSICAL THERAPY ASSISTANT [facility] Blood BLOOD SPECIMEN / Unknown Venipuncture / Unknown 03/08/2023 8:49 AM PHYSICAL THERAPY ASSISTANT 03/08/2023 8:54 AM PHYSICAL THERAPY ASSISTANT Narrative [facility] - 03/08/2023 6:16 PM PHYSICAL THERAPY ASSISTANT Biotin supplements may cause clinically significant interference for this test assay. ??If interference is suspected, it is strongly recommended that biotin is discontinued for at least one week prior to retesting. Iris Brantley DO CHEMISTRY Performing Organization Address [facility] de Phone Number [facility] [address] [place] [address], * PATH TISSUE EXAM (03/08/2023 8:22 AM PHYSICAL THERAPY ASSISTANT) [facility] Case Report Pathology Report ?Case: [id number] ? Authorizing Provider: ??Iris Brantley, ?Collected: ? 03/08/2023 0822 ? Ordering Location: ? [facility] ?? Received: ?03/08/2023 0847 ? Clinic ? Pathologist: ? Geneva Pfeiffer MD ? Specimen: ?Groin, right ? 03/12/2023 11:28 AM [facility] [employer] [facility] Final Diagnosis SKIN, RIGHT GROIN, BIOPSY: 1. Benign verrucous keratosis 2. Negative for malignancy 03/12/2023 11:28 AM [facility] [employer] [facility] Clinical Information Mole removal 03/12/2023 11:28 AM [facility] Gross Description A) Received in formalin, labeled with the patient's name and date of , is a 1.5 x 1.4 x 0.1 cm skin biopsy. There is a 1.5 x 1.4 x 0.1 cm verrucoid suarez lesion. The specimen is inked orange, serially sectioned and entirely submitted in one cassette. TLF 03/08/2023 03/12/2023 11:28 AM [facility] [employer] [facility] Microscopic Description The final diagnosis is based on microscopic examination of appropriate sections of all specimens. Sections reveal epidermal verrucous hyperplasia. No atypia or definitive viral cytopathic effect is seen. The presence of ??orange ink is confirmed on tissue sections. 03/12/2023 11:28 AM PHYSICAL THERAPY ASSISTANT [employer] [facility] Additional Information Interpreted at [facility] - [address], [place] [address] 03/12/2023 11:28 AM PHYSICAL THERAPY ASSISTANT [facility] Other SWAB OF GROIN / Unknown Non-Blood / Unknown 03/08/2023 8:22 AM PHYSICAL THERAPY ASSISTANT 03/08/2023 8:47 AM PHYSICAL THERAPY ASSISTANT Iris Brantley DO PATHOLOGY/CYTOLOGY [facility] [address] [place] [address], [place] * EMG (02/28/2023) Iris Brantley DO NEUROLOGY ORD * SCAN-MRI INTERPRETATION (02/18/2023 12:00 AM PHYSICAL THERAPY ASSISTANT) Anatomical Region Laterality Modality Other Scanner OTHER * (ABNORMAL) LIPID PANEL W REFLEX MEASURED LDL (02/06/2023 9:21 AM PHYSICAL THERAPY ASSISTANT) CHOLESTEROL,TOTAL 159 100 - 199 mg/dL 02/06/2023 4:32 PM PHYSICAL THERAPY ASSISTANT [facility] Comment: Cholesterol, Total Reference Ranges Desirable <200 mg/dL Borderline 200-239 mg/dL High >=240 mg/dL TRIGLYCERIDES 217(H) <150 mg/dL 02/06/2023 4:32 PM PHYSICAL THERAPY ASSISTANT [facility] HDL CHOLESTEROL 39(L) >40 mg/dL 4:32 PM PHYSICAL THERAPY ASSISTANT [facility] NON-HDL CHOLESTEROL 120 <145 mg/dl 02/06/2023 4:32 PM PHYSICAL THERAPY ASSISTANT [facility] CHOL/HDL RATIO 4.08 <4.50 02/06/2023 4:32 PM PHYSICAL THERAPY ASSISTANT [facility] LDL CHOLESTEROL 77 <=130 mg/dL 02/06/2023 4:32 PM PHYSICAL THERAPY ASSISTANT [facility] VLDL CHOLESTEROL 43(H) <=30 mg/dL 02/06/2023 4:32 PM PHYSICAL THERAPY ASSISTANT [facility] PROVIDER ORDERED STATUS RANDOM 02/06/2023 4:32 PM PHYSICAL THERAPY ASSISTANT [facility] Blood BLOOD SPECIMEN / Unknown Butterfly / Unknown 02/06/2023 9:21 AM PHYSICAL THERAPY ASSISTANT 02/06/2023 9:21 AM PHYSICAL THERAPY ASSISTANT Iris Brantley DO CHEMISTRY Performing Organization Address City/[facility]/ZIP Co de Phone Number [facility] [address] [place] [id number], [place] * HEMOGLOBIN (02/06/2023 9:21 AM PHYSICAL THERAPY ASSISTANT) HEMOGLOBIN 13.6 12.0 - 16.0 g/dL 02/06/2023 9:29 AM PHYSICAL THERAPY ASSISTANT [facility] MCV 89 80 - 100 fL 02/06/2023 9:29 AM PHYSICAL THERAPY ASSISTANT [facility] Blood BLOOD SPECIMEN / Unknown Butterfly / Unknown 02/06/2023 9:21 AM PHYSICAL THERAPY ASSISTANT 02/06/2023 9:21 AM PHYSICAL THERAPY ASSISTANT Iris Brantley DO HEMATOLOGY Performing Organization Address [facility] Co de Phone Number [facility] [address] [place] [address], * (ABNORMAL) FERRITIN (02/06/2023 9:21 AM PHYSICAL THERAPY ASSISTANT) FERRITIN 251.0(H) 15.0 - 150.0 ng/mL 02/06/2023 5:08 PM PHYSICAL THERAPY ASSISTANT [facility] Blood BLOOD SPECIMEN / Unknown Butterfly / Unknown 02/06/2023 9:21 AM PHYSICAL THERAPY ASSISTANT 02/06/2023 9:21 AM PHYSICAL THERAPY ASSISTANT Iris Brantley DO CHEMISTRY Performing Organization Address City/[facility]/ZIP Co de Phone Number [facility] [address] [place] [id number], [place] * (ABNORMAL) BASIC METABOLIC PANEL (02/06/2023 9:21 AM PHYSICAL THERAPY ASSISTANT) SODIUM 142 136 - 145 mmol/L 02/06/2023 4:32 PM [facility] POTASSIUM 4.2 3.5 - 5.1 mmol/L 02/06/2023 4:32 PM [facility] CHLORIDE 106 98 - 107 mmol/L 02/06/2023 4:32 PM [facility] CO2,TOTAL 25 22 - 29 mmol/L 02/06/2023 4:32 PM [facility] ANION GAP 11 5 - 18 02/06/2023 4:32 PM [facility] GLUCOSE 109(H) 70 - 99 mg/dL 02/06/2023 4:32 PM [facility] CALCIUM 9.6 8.8 - 10.2 mg/dL 02/06/2023 4:32 PM [facility] BUN 17 8 - 23 mg/dL 02/06/2023 4:32 PM [facility] CREATININE 0.88 0.50 - 0.90 mg/dL 02/06/2023 4:32 PM [facility] BUN/CREAT RATIO 19 10 - 20 4:32 PM [facility] eGFR 70(L) >90 mL/min/1.7 3m2 02/06/2023 4:32 PM [facility] Comment:As of 2021, eG FR is calculated by the CKD-EPI creatinine equation without race adjustment. ??eGFR can be influenced by muscle mass, exercise, and diet. ??The reported eGFR is an estimation only and is only applicable if the renal function is stable. Blood BLOOD SPECIMEN / Unknown Butterfly / Unknown 02/06/2023 9:21 AM PHYSICAL THERAPY ASSISTANT 02/06/2023 9:21 AM PHYSICAL THERAPY ASSISTANT Iris Brantley DO CHEMISTRY [facility] [address] [place] [address], [place] * CTA CHEST - DUAL READ (01/16/2023 9:34 AM PHYSICAL THERAPY ASSISTANT) Anatomical Region Laterality Modality CHEST Computed Tomogra phy Impressions 01/17/2023 8:17 PM PHYSICAL THERAPY ASSISTANT 1. No acute nonvascular findings the chest. [...] @01/17/2023 5:53:53 PM Narrative 01/17/2023 8:17 PM PHYSICAL THERAPY ASSISTANT STUDY: THORACIC AORTIC CT ANGIOGRAM Study date: [...] Compared to last contrasted study 10/17/2021 unchanged ([id number] mm) remeasured during this reading. Ascending aorta: 40 x 39 mm and cross-sectional area of 12.1 cm2. ??Area to height index of 7.3 cm2/m. Compare to last contrasted study in 09/2021 [id number] remeasured during this reading. Arch: 33 x [...] PATIENT: Results are automatically released to your [employer]) account once available, in compliance with federal regulations. ?? This means that you may see your results before your provider has had a chance to review them. ??Please allow 2-3 business days for your provider to comment on the results. Cardiac imaging fellow: Rolly Joel MD Reading plugging machine operator: Brandon Berkowitz MD 01/16/2023 For Patients: As a result of the Century Cures Act, medical imaging exams and [...] conjunction with the services provided by the [facility] [place] (I). FINDINGS: Chest: No significant lymphadenopathy in the [...] CT * (ABNORMAL) CREATININE,ISTAT (01/16/2023 9:03 AM PHYSICAL THERAPY ASSISTANT) CREATININE, POCT 1.00 0.57 - 1.11 mg/dL 01/16/2023 2:15 PM PHYSICAL THERAPY ASSISTANT [facility] Comment:Caution: Patients ta gabe Hydroxyurea have falsely increased iStat Creatinine results. Verify creatinine results ordering a Creatinine (51986.2) eGFR 60(L) >90 mL/min/1.7 3m2 01/16/2023 2:15 PM PHYSICAL THERAPY ASSISTANT [facility] Comment:As of 2021, eG FR is calculated by the CKD-EPI creatinine equation without race adjustment. eGFR can be influenced by muscle mass, exercise, and diet. The reported eGFR is an estimation only and is only applicable if the renal function is stable. Blood BLOOD SPECIMEN / Unknown 01/16/2023 9:03 AM PHYSICAL THERAPY ASSISTANT 01/16/2023 2:15 PM PHYSICAL THERAPY ASSISTANT Joy ALBRECHT [facility] 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
[2023-04-10] MEDS: SODIUM CHLORIDE 0.9 % (FLUSH) 10 ML SYRINGE IVF (08:08)
[2023-04-10] MEDS: LACTATED RINGERS 1000 ML 1,000 ML 100 ML IV ×2 (08:08→11:02)
[2023-04-10] MEDS: fentaNYL 100 MCG/2 ML inj IVP (08:15)
[2023-04-10] MEDS: MIDAZOLAM HCL 1 MG/ML inj IVP (08:15)
--- NOTE | 2023-04-10 08:20 | SUR.PREOP ---
TIME?OUT:?0815 PT/RN/MDA?VERIFICATION?OF?SURGICAL?SITE,?PROCEDURE,?AND?CONSENT OBTAINED?PRIOR?TO?INVASIVE?PROCEDURE.
[2023-04-10] MEDS: CEFAZOLIN 2 GM in 0.9 % SODIUM CHLORIDE Mini-bag 100 ML IVPB (09:20)
--- NOTE | 2023-04-10 09:22 | W.PM.H&PU ---
History & Physical Update History & Physical Update H&P Reviewed and patient assessed: No changes noted
[2023-04-10] MEDS: EPINEPHrine 1 MG in SODIUM CHLORIDE IRRIG SOLUTION 3,000 ML 9003 MG IRRIGATION ×5 (09:40→10:58)
--- NOTE | 2023-04-10 09:59 | P.NB_ITS ---
Nerve Block Nerve Block Time Seen by Provider: 08:17 Date Seen: 04/10/23 Type of block requested by surgeon for post-operative analgesia: supraclavicular Side: right Time out performed: Yes Verification of patient name: Yes Verification of date of : Yes Site marking: site marked Name of person performing procedure: Adriel Continuous monitoring Was continuous monitoring of O2 sat, B/P, satellite project site monitor, recorded every 15 minutes?: Yes Procedure Checklist: sterile prep, needles and gloves Ultrasound guided. Images saved: Yes Medications given in 5ml increments after negative aspiration: Ropivicaine %: 0.5 mL: 20 Needle gauge: 22 Decadron (mg): 10 Precedex (mcg): 25 Patient tolerated procedure well: Yes Block Charges Block Charge (with Pro Fee): Brachial Plexus Use of Ultrasound Machine for Block: Yes- US Guidance/pain block
--- NOTE | 2023-04-10 10:00 | W.ANESCHARGE ---
Anesthesia Charges Start Date/Time Anesthesia Start Date: 04/10/23 Anesthesia Start Time: 09:07 Stop Date/Time Anesthesia Stop Date: 04/10/23 Anesthesia Stop Time: 11:42 Summary Extremes of Age - Over 70 or under 1: MDA
--- NOTE | 2023-04-10 11:11 | PM.ORPRC ---
Procedure Note Date of procedure: 04/10/23 Procedure: PREOPERATIVE DIAGNOSES: 1. Right shoulder rotator cuff tear. 2. Right shoulder subacromial impingement syndrome. POSTOPERATIVE DIAGNOSES: 1. Right shoulder rotator cuff tear - supraspinatus and upper subscapularis 2. Right shoulder anterior and superior labral tearing 3. Right shoulder long head of biceps partial-thickness tearing 4. 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 Right shoulder subacromial impingement syndrome. NAME OF OPERATION: 1. Right shoulder arthroscopic rotator cuff repair. 2. Right shoulder arthroscopic extensive glenohumeral debridement 3. Right shoulder arthroscopic bursectomy, subacromial decompression/partial acromioplasty. SURGEON: Norm Griffith MD CARPENTER FORM: Isadora Segura PA-C. Of note, a skilled press assistant and feeder was critical for this case to aide in patient positioning, suture manipulation, arm positioning, instrument positioning, and closure. ANESTHESIA: General plus preoperative supraclavicular block. EBL: 25 mL IMPLANTS: Arthrex 4.75 mm BioComposite SwiveLock suture anchor (x1); Arthrex 5.5 mm BioComposite SwiveLock suture anchor (x2); Arthrex 2.6 mm knotless FiberTak RC (x2) COMPLICATIONS: None evident INDICATIONS: The patient is a pleasant, 72-year-old female who has experienced right shoulder pain that has been increasing in recent time. Physical exam and imaging were consistent with a rotator cuff tear. Given their findings, as well as the weakness and pain, and inadequate response to nonoperative management, recommendation was made for surgery. FINDINGS: Exam under anesthesia revealed stable shoulder with excellent range of motion. The diagnostic arthroscopy revealed grade 4 chondromalacia humeral head and a region measuring 8x10mm. The Subscapularis tendon was torn from its upper border with moderate retraction. The long head of the biceps tendon was intact and within the bicipital groove. It did show some partial-thickness tearing near its origin. The superior rotator cuff tendon was found to be torn and high-grade partial-thickness manner through a majority of the footprint with only a thin connection on the bursal side. The labrum was torn in the anterior and superior aspects. No loose bodies were identified within the pouch or subscapularis recess. PROCEDURE: Following a thorough discussion of risks, benefits, and alternatives, consent was obtained and the right shoulder was marked. The patient was brought to the operating room and placed supine on the operating table. Induction of anesthesia was completed after preoperative supraclavicular block was administered in preop holding. Appropriate time out was performed identifying proper patient, site, and procedure. 2 g IV Ancef was administered within 1 hour of incision preoperatively. The right upper extremity was prepped and draped in the appropriate sterile fashion using ChloraPrep prep. This was after the patient was positioned in the beach chair with their head in neutral alignment and all bony prominences well padded. The shoulder was insufflated with 20mL of normal saline via an 18g spinal needle from a posterior approach. An 11 blade skin incision allowed a blunt trochar to be inserted and diagnostic arthroscopy to be performed with the findings as noted above. An anterior portal was established with an outside in technique. This allowed the probe to be inserted and confirm the diagnostic arthroscopic findings. The shaver was then inserted and allowed debridement of the anterior and superior labrum as well as the biceps partial-thickness tearing portion near the origin and the loose chondral flaps adjacent to the grade 4 chondral lesion on the humeral head. Following this, the upper border subscapularis was repaired after debriding the lesser tuberosity with the shaver and Henry cautery. Subscapularis was captured in horizontal mattress fashion with a fiber tape suture. The tails were brought to a single anchor in the lesser tuberosity with excellent reapproximation of the subscap tendon and good excursion/tension. Thereafter, the subacromial space was entered. Here, a complete bursectomy and partial acromioplasty/subacromial decompression was performed with a combination of radiofrequency ablator, the shaver, and a 5.5 mm bur. Further inspection of the supraspinatus and infraspinatus rotator cuff was performed. This identified the tear as noted above. The margins of the tear were debrided, and the greater tuberosity was debrided with a combination of the apollo cautery, shaver, and bur on reverse setting. After gentle decortication, a speed bridge configuration with a medial maria r was engaged. 2 medial 2.6 mm knotless FiberTak RC anchors were placed and the sutures were passed with a fiber link. The suture tails were then retrieved, crossed, and cinched down for the medial maria r purpose. A tail from each of the medial row anchor FiberTapes were then brought to a lateral row anchor. Excellent reapproximation of the tissue to the greater tuberosity was achieved with broad footprint compression. A small dog ear in the posterior aspect was repaired with the eyelet sutures from the posterolateral anchor. The rotator cuff showed excellent reapproximation of the greater tuberosity with good security upon probing. Prior to anchor new autos delivery driver removal, the eyelet sutures were tugged on for each anchor and found that the anchor had excellent stability within the bone. The shoulder was placed through range of motion and found to be stable. The rotator cuff was re-probed and found to be stable. Instruments were removed. Excess fluid was drained, closure performed with 4-0 Monocryl and Steri-Strips. Dressings were applied. Sling was applied. The patient was awoken from anesthesia and transferred to the PACU in stable condition. A skilled press assistant and feeder was critical for this case to aid in patient positioning, limb positioning, skill to manipulate arthroscopic instruments and camera, suture management, patient safety, and closure. PLAN: 1. Elbow, forearm, wrist and digit range of motion as tolerated. 2. Encouraged ice. 3. Oxycodone for pain as needed. 4. Sling at all times except for ROM and showering. 5. Follow up with PA visit in 1-2 weeks for wound check. Initiate physical therapy following that visit for passive range of motion. Initiate active assisted range of motion at 6 weeks. May do pendulums now.
--- NOTE | 2023-04-10 11:54 | P.ANES_ITS ---
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
--- NOTE | 2023-04-10 15:26 | SUR.PHASEII ---
Addendum entered by Jose Angel Alfredo RN 04/10/23 15:31: Nerve block done pre-op and still intact. pain 0/10. good peripheral pulses and pt able to wiggle fingers. Original Note: Patient returned to [facility] post op at 1212. 02 saturations 88%-92% on 3L. Encouraged C&DB. Pt up to BR with Ax2 and w/c, tolerated well. pt then up to void shortly after with Ax1 and ambulated, tolerated well however sat recheck upon return to room was 87% on RA. IS given to patient and educated on use. Sats continue to dip below 90%. pt tolerating oral fluids and toast, saline locked. IV to L wrist remains intact. Surgical dressings CDI to right shoulder. R arm in sling and cryo cuff on. Spouse Damián at bedside. Dr. Griffith consulted d/t no improvement to 02 saturations after 3 hours post op. Pt will be admitted to m/s unit overnight for oxygen saturation monitoring and support. Pt and spouse agreeable to plan. Report given to ANA Aragon at 1531.
--- NOTE | 2023-04-10 16:29 | RESP.RT ---
silver glove place on pt to warm hand for accurate saturation reading. Reading 94% with good pleth on 1/2 L of oxygen, if she continues this, would DC oxygen in 1-2 hours. Per report pt. SPO2 was 94% on RA on admission.
--- NOTE | 2023-04-10 19:18 | PC.NURSE ---
Pt alert to self. Pt?s at bedside. Pt arrived to floor around 1730. Pt came from ER after falling at home. Pt had no complaints/no nonverbal indications of pain. Pt up with one assist. ?
[2023-04-10] MEDS: ACETAMINOPHEN 500 MG TABLET PO (20:28)
[2023-04-10] MEDS: ROSUVASTATIN CALCIUM 10 MG TABLET 20 MG PO (21:28)
[2023-04-10] MEDS: SENNOSIDES 1 TAB TABLET 2 TAB PO (21:28)
[2023-04-10] MEDS: TRAZODONE HCL 50 MG TABLET PO (21:29)
[2023-04-10] MEDS: GABAPENTIN 300 MG CAPSULE PO (21:29)
[2023-04-11] MEDS: OXYCODONE 5 MG TABLET PO ×3 (01:13→08:36)
[2023-04-11] MEDS: ACETAMINOPHEN 500 MG TABLET PO ×2 (02:29→08:35)
[2023-04-11 03:00] VITALS: BP 152/80; PULSE 72; RESP 18; TEMP 36.6; O2SAT 94
[2023-04-11] MEDS: buPROPion XL 150 MG TABLET PO (08:02)
[2023-04-11] MEDS: SENNOSIDES 1 TAB TABLET 2 TAB PO (08:02)
[2023-04-11] MEDS: ASPIRIN 81 MG TABLET EC PO (08:02)
[2023-04-11] MEDS: PARoxetine 20 MG TABLET PO (08:02)
[2023-04-11 08:09] VITALS: BP 121/70; PULSE 62; RESP 18; O2SAT 94
--- NOTE | 2023-04-11 08:12 | PC.NURSE ---
Patient pleasant, alert and cooperative. Ambulated?with stand by assist. Reported pain in her right shoulder and forearm. Cryo cuff applied to shoulder. Given PRN Tylenol and Oxycodone for pain. Ice pack applied to right forearm.?
--- NOTE | 2023-04-11 10:27 | PC.NURSE ---
Nursing Care Hours: [id number] Pt eager to go home this morning. Stable spO2 on RA. Pain in R upper arm 4/10, treated per eMAR, cryocuff on. CMS intact, pt has normal strength. Voiding independently. Alert and oriented, denies nausea or chest pain. IV removed for discharge. Home instructions went over with pt and spouse. Pt ambulated off the unit in stable condition.
== END 2023-04-11 08:34 | disposition home or self-care (01) ==
LOC: OR 08:10 → MEDSURG 16:25
PROVIDERS: PCP Family Medicine; Visit Provider Orthopaedic Surgery Sports Medicine
PROC: (CPT 29805; principal; 2023-04-10 09:00)
DX: M75.101 Unspecified rotator cuff tear or rupture of right shoulder, not specified as traumatic (principal); M75.41 Impingement syndrome of right shoulder; S43.431A Superior glenoid labrum lesion of right shoulder, initial encounter; S46.111A Strain of muscle, fascia and tendon of long head of biceps, right arm, initial encounter; M94.211 Chondromalacia, right shoulder; G89.18 Other acute postprocedural pain
CPT/HCPCS: 29827; 29826; 29823; 01630; 64415; 76942; 99100; A9270; C1713; J0171; J0690; J1100; J2250; J2371; J2405; J2704; J2710; J2795; J3010; J7120

== ENCOUNTER 2024-04-23 04:13 | Emergency (ER) | payer MEDICARE, SELFPAY ==
--- OUTSIDE RECORDS SUMMARY | 2024-04-23 04:15 | XMS_ITS | Clinical Summary ---
Author Organization [facility] Address [facility] [place] [address] Care Team Providers Care Scrap Separator Name Role Phone KaronIris Bertha RUEDA Primary Care Provider [phone] Allergies No known active allergies Medications aspirin (ECOTRIN) 81 mg enteric coated tablet Take 1 Tablet (81 mg) by mouth once daily with a meal. 0 Active calcium carbonate/vitamin D2 (CALCIUM 600 + D ORAL) Take 600 mg by mouth once daily. Active propranoloL (INDERAL) 10 mg tabletIndications :Performance anxiety TAKE ONE TO TWO TABLETS BY MOUTH EVERY DAY NEEDED FOR PERFORMANCE ANXIETY 10 Tablet 1 024 Active multivit,thx,calc ium,iron,mins (MULTIVITAMIN AND MINERAL ORAL) Take by mouth. A ctive sennosides (Senna) 8.6 mg tablet Take 8.6 mg by mouth 2 times daily if needed for Constipation. Active oxybutynin XL (DITROPAN XL) 10 mg CR tabletIndications :Overactive bladder Take 2 Tablets (20 mg) by mouth once daily. 180 Tablet 3 024 Active CPAPIndications:M ild obstructive sleep apnea,Persistent disorder of initiating or maintaining sleep,RLS (restless legs syndrome) CPAP (E0601) machine for home use at pressure: 5-20cmw , Choice of mask (A7030 or A7034) w/full face cushion (A7031) x1/mo, nasal cushion (A7032) x2/mo, or nasal pillows (A7033) x 2/mo; Length of Need: 99 months; Frequency of use: Daily Heated humidifier (E0562) x 1/5 year, Humidifier chamber (A7046) x 1/6mo, Chinstrap (A7036) x 1/6mo, Heated tubing (A4604) x 1/3mo, Headgear (A7035) x 1/6mo, Filters: Disposable (A7038) x 2pk/1mo & Reusable (A7039) x 1pk/6mo 1 Each 024 Active fluticasone (50 mcg per actuation) nasal solution (FLONASE)Indicati ons:Non-recurrent acute serous otitis media of both ears Inhale 2 Sprays in both nostrils once daily. 16 g 5 024 Active pramipexole (MIRAPEX) 0.5 mg tabletIndications :Restless leg syndrome Take 2 Tablets (1 mg) by mouth at bedtime. 180 Tablet 3 024 Active amLODIPine (NORVASC) 2.5 mg tabletIndications :HTN (hypertension) TAKE ONE TABLET BY MOUTH EVERY DAY 90 Tablet 2 025 Active gabapentin (NEURONTIN) 300 mg capsuleIndication s:Peripheral sensory neuropathy,Restle ss leg syndrome TAKE 4 CAPSULES (1,200 MG) BY MOUTH AT BEDTIME 360 Capsule 3 025 Active ferric carboxymaltose 100 mg iron/2 mL solnIndications:I tejas deficiency,Restle ss leg syndrome Inject 1,000 mg intravenous once daily before a meal. 025 Active rosuvastatin (CRESTOR) 20 mg tabletIndications :Hyperlipidemia, unspecified hyperlipidemia type TAKE ONE TABLET BY MOUTH AT BEDTIME 90 Tablet 2 025 Active rosuvastatin (CRESTOR) 20 mg tabletIndications :Hyperlipidemia, unspecified hyperlipidemia type Take 1 Tablet (20 mg) by mouth at bedtime. 90 Tablet 3 023 2024 Discontinued Active Problems Problem Noted Date Diagnosed Date Iron deficiency 03/31/2024 Restless leg syndrome 03/31/2024 PMR (polymyalgia rheumatica) 12/20/2022 Depression, recurrent 10/17/2021 Ascending aortic aneurysm 09/27/2021 Overview (09/27/2021): Had echocardiogram and CT in hospital 09/2021. Plan repeat CT in 6 months. NSTEMI (non-ST elevation myocardial infarction) 09/27/2021 Overview (09/27/2021): Due to acute illness when hospitalized for pyelonephritis September 2021 Situational anxiety 01/20/2020 Performance anxiety 02/16/2011 Resolved Problems Problem Noted Date Diagnosed Date Resolved Date Pulmonary embolus, left 12/20/2022 07/2 05/2023 Encounters Date Type Department Care Team Description 04/21/2024 Refill [facility] [address] [place] [address] Iris Brantley DO Refill Request (Rosuvastatin) 04/16/2024 11:36 AM PRINTING MACHINE OPERATOR - 04/16/2024 11:59 PM PRINTING MACHINE OPERATOR Hospital Encounter [address] [address] Iron deficiency; Restless leg syndrome 04/16/2024 11:26 AM PRINTING MACHINE OPERATOR - 04/16/2024 11:35 AM PRINTING MACHINE OPERATOR Hospital Encounter [address] [address] Iron deficiency (Primary Dx); Restless leg syndrome 04/16/2024 Travel 03/30/2024 Telephone [facility] [address] [place] [address] Chiquis Gunn, NAIL PULLER Appointment 03/27/2024 Telephone [facility] [address] [place] [address] Chiquis Gunn, NAIL PULLER Appointment 03/27/2024 Nurse Triage [facility] [address] [phone] Danny Martinez MD Error-please disregard 03/20/2024 10:15 AM PRINTING MACHINE OPERATOR Orders Only [facility] [address] [place] [address] Lab, [place] Lab 03/20/2024 Travel 03/16/2024 Refill [facility] [address] [place] [address] Héctor Bruno MD Refill Request (Gabapentin) 03/11/2024 Refill [facility] [address] [place] [address] Iris Brantley DO Refill Request (Amlodipine) 03/09/2024 Telephone [facility] [address] [place] [address] Iris Brantley DO Lab (Lab orders needed) 02/13/2024 3:30 PM PRINTING MACHINE OPERATOR Telemedicine [facility] [place] [address] [facility] [address] [place] [address] Jair Tyler, Librado Moreno MD 02/13/2024 Telephone [facility] [address] [place] [phone] Danny Martinez MD Lab (Lab orders Needed) 02/13/2024 Telephone [facility] [address] [place] [phone] Danny Martinez MD Refill Request (pramipexole (MIRAPEX) 0.5 mg tablet) 02/13/2024 Telephone [facility] [address] [place] [address] Iris Brantley DO Questions (//); Error-please disregard (ERROR) 02/10/2024 Travel 02/04/2024 10:00 AM PRINTING MACHINE OPERATOR Ancillary Procedure [facility] [address] [facility] [address] [place] [address] 02/04/2024 9:40 AM PRINTING MACHINE OPERATOR Orders Only [facility] [address] [facility] [address] [place] [address] Lab 02/04/2024 Travel 01/29/2024 1:30 PM PRINTING MACHINE OPERATOR Office Visit [facility] [address] [place] [address] Iris Brantley DO Medication Management 01/29/2024 Travel 01/28/2024 Orders Only [facility] [address] [place] [address] Iris Brantley, <No scans attached> 01/24/2024 Telephone [facility] [address] [facility] [place] [address] Danny Martinez MD Medication Management (pramipexole, gabapentin) from Last 3 Months Immunizations Name Administration Dates Next Due COVID-19 VACCINE SPIKEVAX (M ODERNA 50MCG/0.5ML) 12YO+ PFS 06/12/2023 COVID-19 vaccine (Moderna 100mcg/0.5mL) PF, MDV 12/06/2021,06/06/2021,05/16/2020,04/18 HepA-HepB (Twinrix) 12/15/2002 Influenza Virus, Unspecified 11/04/2023 Influenza, High-dose Inactivated 12/23/2018 Influenza, High-dose Quadriv [...] PHQ-2 Answer Date Recorded PHQ-2 TOTAL SCORE 1 09/11/2023 Social Connections Answer Date Recorded Do you often feel lonely or isolated from those around you? 0 01/29/2024 Alcohol Use Answer Date Recorded How often do you have a drink containing alcohol ? 1 01/01/2022 How many drinks containing a lcohol do you have on a typical day when you are drinking? 0 01/01/2022 How often do you have five or more drinks on one occasion? 0 01/01/2022 Financial Resource Strain Answer Date R ecorded Difficulty of Paying Living Expenses 3 01/29/2024 Difficulty of Paying Living Expenses Not on file 01/29/2024 Food Insecurity Answer Date Recorded Do you worry your food will run out before you are able to buy more? 1 01/29/2024 Transportation Needs Answer Date Record ed Does lack of transportation keep you from medica l appointments? 1 01/29/2024 Does lack of transportation keep you from work, meetings or getting things that you need? 1 01/29/2024 Housing Stability Answer Date Recorded What is your housing situation today? 1 01/29/2024 Interpersonal Safety Answer Date Record ed Are you being hit, kicked, p ushed or yelled at (see row info)? No 04/16/2024 Interpersonal Safety Abuse 12 - 18 Not on file 04/16/2024 Interpersonal Safety Ambulatory Vulnerability No t on file 04/16/2024 Utilities Answer Date Recorded Do you have trouble paying f or utilities (for example, heat, electricity, water, phone)? 1 01/29/2024 Comments No Sex and Gender Information Value Date Recorded Sex Assigned at Not on file Legal Sex Female 6:15 AM PRINTING MACHINE OPERATOR Gender Identity Not on file Sexual Orientation Not on file Obstetrics History Last Filed Vital Signs Vital Sign Reading Time Taken Comments Blood Pressure 114/73 04/16/2024 12:00 PM PRINTING MACHINE OPERATOR Pulse 64 04/16/2024 12:00 PM PRINTING MACHINE OPERATOR Temperature 36.8 C (98.2 F) 04/16/2024 12:00 PM PRINTING MACHINE OPERATOR Respiratory Rate 16 04/16/2024 12:00 PM PRINTING MACHINE OPERATOR Oxygen Saturation 94% 04/16/2024 12:00 PM PRINTING MACHINE OPERATOR Inhaled Oxygen Concentration - - Weight 86.2 kg (190 lb) 01/23/2024 8:51 AM PRINTING MACHINE OPERATOR Height 166.5 cm (5' 5.55) 01/23/2024 8:51 AM CS T Body Mass Index 31.09 01/23/2024 8:51 AM PRINTING MACHINE OPERATOR Plan of Treatment Upcoming Encounters Date Type Department Care Team (Late st Contact Info) Description 04/24/2024 3:00 PM PRINTING MACHINE OPERATOR Appointment [facility] [address] [place] [address] 05/05/2024 10:00 AM CDT Office Visit [facility] [address] [place] [phone] Danny Martinez MD [address] [facility] [address] [place] [address] Health Maintenance Due Date Last Done Comments Medicare Wellness for age 65+ 02/07/2024, 01/01/2022, 11/09/2019 Depression screening for age 12+ 09/10/2024 09/11/2023, 09/11/2023, 02/07/2023, Additional history exists Mammogram for age 45-75 01/07/2025 01/08/20, 12/25/2022, 10/30/2021, Additional history exists BMI (ht and wt on same day) for age 18+ 01/22/2025 01/23/2024, 03/29/2023, 02/06/2023, Additional history exists CT Colonography for age 45-75 03/01/2025 03/01/2020 Lipids for age 45-75 02/07/2028 02/06/2023, 01/01/2022, 10/16/2021, Additional history exists Tetanus booster 07/24/2028 07/24/2018, 07/09/2007 Tdap Completed 07/24/2018, 07/09/2007 DEXA/DXA scan for age 65+ Completed 11/11/2019 Zoster (shingles) series for age 50+ Completed 07/20/2020, 03/07/2020 Pneumococcal series for age 50+ Completed , 11/09/2019 RSV vaccine for adults or Completed 12/04/2022 Hepatitis C screening for ag e 18-79 Completed 03/08/2023, 01/01/2022 COVID-19 vaccine series Completed 11/04/19 24, 06/12/2023, 12/06/2021, Additional history exists Influenza for age 65+ Completed 11/04/2023 , 12/04/2022, 12/06/2021, Additional history exists Procedures Procedure Name Priority Date/Time Associated Diagnosis Comments PHOSPHORUS Today 04/16/2024 11:50 AM PRINTING MACHINE OPERATOR Iron deficiency Restless leg syndrome FERRITIN Routine 03/20/2024 10:01 AM PRINTING MACHINE OPERATOR Iron deficiency CTA CHEST - RAD DUAL READ Routine 02/04/2024 10:36 AM PRINTING MACHINE OPERATOR Aneurysm of ascending aorta without rupture CREATININE,ISTAT Routine 02/04/2024 9:38 AM PRINTING MACHINE OPERATOR Preprocedural examination IRON PLUS IRON BINDING CAP Routine 02/04/2024 9:35 AM PRINTING MACHINE OPERATOR Iron deficiency XR MAMMO LA BILAT SCREEN Routine 01/08/2024 8:14 AM PRINTING MACHINE OPERATOR Visit for screening mammogram ANTI HCV Routine 03/08/2023 8:49 AM PRINTING MACHINE OPERATOR Tingling of both feet LIPID PANEL W REFLEX MEASURED LDL Routine 02/06/2023 9:21 AM PRINTING MACHINE OPERATOR Hyperlipidemia, unspecified hyperlipidemia type XR DXA BONE DENSITY 2 SITES AXIAL Routine 11/11/2019 1:53 PM CDT Menopause from Last 3 Months or Most Recently Relevant to Health Maintenance Results * PHOSPHORUS (04/16/2024 11:50 AM PRINTING MACHINE OPERATOR) PHOSPHORUS 3.9 2.5 - 4.5 mg/dL 04/16/2024 12:11 PM PRINTING MACHINE OPERATOR [facility] Blood BLOOD SPECIMEN / Unknown Venipuncture / Unknown 04/16/2024 11:50 AM PRINTING MACHINE OPERATOR 04/16/2024 11:51 AM PRINTING MACHINE OPERATOR us Danny Martinez MD CHEMISTRY Final Res ult [facility] [address] [address] [address] [place] [address] * FERRITIN (03/20/2024 10:01 AM PRINTING MACHINE OPERATOR) FERRITIN 79 16 - 288 ng/mL [facility] Blood BLOOD SPECIMEN / Unknown 03/20/2024 10:01 AM PRINTING MACHINE OPERATOR 03/20/2024 10:02 AM PRINTING MACHINE OPERATOR us Danny Martinez MD CHEMISTRY Final Res ult [facility] [address] [place] [address], [facility] [address] [place] [address] * CTA CHEST - DUAL READ (02/04/2024 10:36 AM PRINTING MACHINE OPERATOR) Anatomical Region Laterality Modality CHEST Computed Tomogra phy Impressions 02/06/2024 5:10 PM PRINTING MACHINE OPERATOR 1. Please see dedicated cardiac imaging report. The aorta is also reported by cardiology. 2. No new or suspicious extracardiac imaging abnormality. 3. Stable extensive right-sided pleural plaque formation. Please note that all CT scans at this facility use dose modulation, iterative reconstruction, and/or weight-based dosing when appropriate to reduce radiation dose to as low as reasonably achievable. Dictated by: Elpidio Augustine MD @ 02/04/2024 14:37:14 (Electronic Signature) Narrative 02/06/2024 5:10 PM PRINTING MACHINE OPERATOR STUDY: CHEST AORTIC CT ANGIOGRAPHY Study date: 02/04/2024 Indication: 73 year-old female with dilated ascending aorta has been referred for evaluation of thoracic and abdominal aorta morphology. STUDY PARAMETERS: Scanner: Siemens Definition Force Contrast: 100 ml of Omnipaque 350 Scan protocol: flash Radiation dose length product: 400 FINDINGS: Thoracic aorta: Left-sided arch. Mild atheromatous disease. Maximum true cross-sectional dimensions are - Aortic sinus: 42 x 39 x 37 mm from cusp-cusp (area index 7.2 cm2/m). Ascending aorta: 41 x 41 mm with an area index of 7.7 cm2/m. Mild stenosis of the left subclavian vein with evidence of venous collateral formation (not seen on prior CT with right arm injection). Pericardium: No effusion Great arteries: Normal great artery branching pattern. Brachiocephalic artery Normal. Visualized right subclavian artery Normal. Visualized right common carotid artery Normal. Visualized left common carotid artery Normal. Visualized left subclavian artery Normal. Nonvascular findings: Please see separate radiology report Final Impressions: Mildly dilated aortic root and ascending aorta. Aortic sinus measures 42 x 39 x 37 mm from cusp-cusp (area index 7.2 cm2/m). Ascending aorta: 41 x 41 mm (area index of 7.7 cm2/m). Slight interval enlargement when directly compared to prior CT from 12/2022. Mild stenosis of the left subclavian vein with evidence of venous collateral formation (not seen on prior CT with right arm injection). FOR PATIENT: Results are automatically released to your [facility] account once available, in compliance with federal regulations. This means that you may see your results before your provider has had a chance to review them. Please allow 2-3 business days for your provider to comment on the results. Jace Esparza MD [facility] For Patients: As a result of the Century Cures Act, medical imaging exams and procedure reports are released immediately into your electronic medical record. You may view this report before your referring provider. If you have questions, please contact your health care provider. OVER-READ OVER-READ OVER-READ OVER-READ: DETAILED RADIOLOGY EXTRACARDIAC OVER-READ OF CARDIAC CT 02/04/2024 TECHNIQUE: Please see cardiology report for technical information. 100 cc Omnipaque-350 intravenous contrast. This exam is being performed in conjunction with the services provided by the [facility] ([facility]). CLINICAL HISTORY: Cardiac over-read. FINDINGS: Mediastinal structures: Unremarkable with no suspicious adenopathy. Pulmonary arteries: Bolus timing limits evaluation, no definite filling defects. Lungs and pleura: Extensive pleural plaques adjacent to the right upper lobe. No overall change. No pleural fluid. Iris Brantley DO CT Final Resu lt * CREATININE,ISTAT (02/04/2024 9:38 AM PRINTING MACHINE OPERATOR) POCT,CREATININE , ISTAT 0.7 0.6 - 1.3 mg/dL [facility] (Urgent Care) Blood BLOOD SPECIMEN / Unknown 02/04/2024 9:38 AM PRINTING MACHINE OPERATOR 02/04/2024 9:38 AM PRINTING MACHINE OPERATOR Narrative [facility] - 02/04/2024 10:05 AM PRINTING MACHINE OPERATOR FASTING:YES FASTING: YES Iris Brantley DO CHEMISTRY Final Resu lt Performing Organization Address City/[facility] Co de Phone Number [facility] [address] [place] [address], [facility] (Urgent Care) [address] [place] [address] * IRON PLUS IRON BINDING CAP (02/04/2024 9:35 AM PRINTING MACHINE OPERATOR) IRON, TOTAL 70 45 - 160 mcg/dL [facility] IRON BINDING CAPACITY 345 250 - 450 mcg/dL (calc) [facility] % SATURATION 20 16 - 45 % (calc) [facility] Blood BLOOD SPECIMEN / Unknown 02/04/2024 9:35 AM PRINTING MACHINE OPERATOR 02/04/2024 9:37 AM PRINTING MACHINE OPERATOR Narrative [facility] - 02/05/2024 3:55 AM PRINTING MACHINE OPERATOR FASTING:YES FASTING: YES Danny aMrtinez MD CHEMISTRY Final Res ult Performing Organization Address [facility] Co de Phone Number [facility] [address] [place] [address], [facility] [address] [place] [address] * XR MAMMO LA BILAT SCREEN (01/08/2024 8:14 AM PRINTING MACHINE OPERATOR) Anatomical Region Laterality Modality BREASTS, Breast Left, Breast Right Bilateral Mammography Impressions 01/09/2024 2:17 PM PRINTING MACHINE OPERATOR There is no radiographic evidence for malignancy. Recommend annual mammograms. MAMMOGRAM ASSESSMENT: ACR 1 Negative PATIENTS: You will also receive a letter with your examination results in an easy to read format. If you have questions about your results, please contact your referring provider. Narrative 01/09/2024 2:17 PM PRINTING MACHINE OPERATOR For Patients: As a result of the Century Cures Act, medical imaging exams and procedure reports are released immediately into your electronic medical record. You may view this report before your referring provider. If you have questions, please contact your health care provider. XR MAMMO LA BILAT SCREEN [[id number]] CLINICAL HISTORY: This is an asymptomatic 73 y.o. patient. INDICATION FOR EXAM: Mammogram Screening. TECHNIQUE: CC & MLO views were obtained. This study was evaluated with the assistance of Computer-Aided Detection. Breast Tomosynthesis was used in interpretation. COMPARISON FILM: Yes 12/25/22 [facility] 10/30/21 [facility] FINDINGS: There are scattered areas of fibroglandular density. There are no dominant masses, suspicious micro calcifications or areas of architectural distortion. Iris Brantley DO MAMMO Final Resu lt * ANTI HCV (03/08/2023 8:49 AM PRINTING MACHINE OPERATOR) Pathologist [facility] HEPATITIS C ANTIBODY Non-Reacti ve Non-React peter 03/08/2023 5:51 PM PRINTING MACHINE OPERATOR [facility] Comment:Please note, per www .CDC.gov: If a patient is known to be at high risk of HCV infection, or is symptomatic, and the physician's suspicion of HCV infection is high, HCV RNA testing is often employed and is of diagnostic value, even after an initial negative anti-HCV test result. Blood BLOOD SPECIMEN / Unknown Venipuncture / Unknown 03/08/2023 8:49 AM PRINTING MACHINE OPERATOR 03/08/2023 8:54 AM PRINTING MACHINE OPERATOR Iris Brantley DO SEND OUTS Final Resu lt [facility] [address] [place] [address], [place] * (ABNORMAL) LIPID PANEL W REFLEX MEASURED LDL (02/06/2023 9:21 AM PRINTING MACHINE OPERATOR) Pathologist [facility] CHOLESTEROL,TOTAL 159 100 - 199 mg/dL 02/06/2023 4:32 PM PRINTING MACHINE OPERATOR [facility] Comment: Cholesterol, Total Reference Ranges Desirable <200 mg/dL Borderline 200-239 mg/dL High >=240 mg/dL TRIGLYCERIDES 217(H) <150 mg/dL 02/06/2023 4:32 PM PRINTING MACHINE OPERATOR [facility] HDL CHOLESTEROL 39(L) >40 mg/dL 4:32 PM PRINTING MACHINE OPERATOR [facility] NON-HDL CHOLESTEROL 120 <145 mg/dl 02/06/2023 4:32 PM PRINTING MACHINE OPERATOR [facility] CHOL/HDL RATIO 4.08 <4.50 02/06/2023 4:32 PM PRINTING MACHINE OPERATOR [facility] LDL CHOLESTEROL 77 <=130 mg/dL 02/06/2023 4:32 PM PRINTING MACHINE OPERATOR [facility] VLDL CHOLESTEROL 43(H) <=30 mg/dL 02/06/2023 4:32 PM [facility] PROVIDER ORDERED STATUS RANDOM 02/06/2023 4:32 PM PRINTING MACHINE OPERATOR [facility] Blood BLOOD SPECIMEN / Unknown Butterfly / Unknown 02/06/2023 9:21 AM PRINTING MACHINE OPERATOR 02/06/2023 9:21 AM PRINTING MACHINE OPERATOR us Iris Brantley DO CHEMISTRY Final Resu lt [facility] [address] [place] [address], * (ABNORMAL) XR DXA BONE DENSITY 2 SITES AXIAL [[id number]] (11/11/2019 1:53 PM CDT) Anatomical Region Laterality Modality Spine, HIPS, HIPL, HIPR Other Narrative 11/12/2019 9:41 AM CDT Please see scanned document for results of this study. us Victoriano Hackett MD DEXA Final Resu lt from Last 3 Months or Most Recently Relevant to Health Maintenance Insurance [facility] MEDICARE ADVANTAGE MR MEDICARE PART A HB ONLY Advance Directives Documents on File Type Date Recorded Patient Co Teacher Expl anation Healthcare Directive 02/12/2023 10:04 AM HEALTH CARE DIRECTIVE [facility] -06/06/2019 * Full Code (Latest Code Status on File) Date Activated Date Inactivated Comments 12/02/2019 7:11 AM 12/02/2019 11:18 AM Question Answer Comments Code Status Discussion: Not Discussed Care Teams Scrap Separator Relationship Specialty Start Date End Date [place] [address] [address] PCP - General Family Practice 02/23/21
[2024-04-23 04:18] VITALS: BP 145/87; PULSE 58; RESP 18; TEMP 36.2; O2SAT 98; BMI 32.3
--- NOTE | 2024-04-23 04:36 | CRLHL7_ITS ---
For Patients: As a result of the Century Cures Act, medical imaging exams and procedure reports are released immediately into your electronic medical record. You may view this report before your referring provider. If you have questions, please contact your health care provider. INDICATION: Chest pain. TECHNIQUE: Chest 1 views. COMPARISON: None. FINDINGS: Patient is rotated. Cardiovasculature and mediastinum: Mild cardiomegaly, which may be exaggerated by AP view. Unremarkable mediastinum. Lungs and pleural spaces: Minimal interstitial prominence in the right lung. Possible trace right pleural effusion. No pneumothorax. Bones and soft tissues: No significant findings. IMPRESSION: Minimal interstitial prominence in the right lung, which may be related to infection. Pulmonary edema is less likely considering asymmetry. Possible trace right pleural effusion. Dictated by Lara Teague MD @ 04/23/2024 5:17:37 AM (Electronically Signed)
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
[2024-04-23 04:57] LABS: Basophils Absolute Auto 0.02 K/uL (0.00-0.30); Basophils Percent Auto 0.3 % (0.0-3.0); Eosinophils Absolute Auto 0.27 K/uL (0.00-0.50); Hemoglobin* 13.3 gm/dL (12.0-16.0); Immature Granulocytes Abs Auto 0.01 K/uL (0.00-0.30); Immature Granulocytes Pct Auto 0.1 %; Lymphocytes Percent Auto 19.9 % (20-44); Mean Corpuscular HGB Conc 32 gm/dL (32-36); Mean Corpuscular Hemoglobin 29 pg (26-34); Mean Corpuscular Volume 90 fL (80-100); Monocytes Percent Auto 7.1 % (0.0-11.0); Neutrophils Absolute Auto 4.66 K/uL (1.7-7.0); Neutrophils Percent Auto 68.6 % (42.0-72.0); Platelet Count* 231 K/uL (140-440); RDW Coefficient of Variation % 13.9 % (11.5-15.5); Red Blood Count 4.54 m/uL (4.00-5.20); White Blood Count* 6.79 K/uL (4.50-11.00)
--- OUTSIDE RECORDS SUMMARY | 2024-04-23 04:58 | XMS_ITS | Clinical Summary ---
Author Organization [employer] [facility] Address [facility] [place] [address] Care Team Providers Care Installation & Maintenance Executive Name Role Phone KaronIris Bertha RUEDA Primary Care Provider [phone] Allergies No known active allergies Medications aspirin [...] Type Department Care Team Description 04/21/2024 Refill [facility] [address] [place] [address] Iris Brantley DO Refill Request (Rosuvastatin) 04/16/2024 11:36 AM CROWD CONTROLLER - 04/16/2024 11:59 PM CROWD CONTROLLER Hospital Encounter [address] [address] Iron deficiency; Restless leg syndrome 04/16/2024 11:26 AM CROWD CONTROLLER - 04/16/2024 11:35 AM CROWD CONTROLLER Hospital Encounter [address] [address] Iron deficiency (Primary Dx); Restless leg syndrome 04/16/2024 Travel 03/30/2024 Telephone [facility] [address] [place] [address] Chiquis Gunn, [employer] OPERATOR Appointment 03/27/2024 Telephone [facility] [address] [place] [address] Chiquis Gunn, [employer] OPERATOR Appointment 03/27/2024 Nurse Triage [facility] [address] [phone] Danny Martinez MD Error-please disregard 03/20/2024 10:15 AM CROWD CONTROLLER Orders Only [facility] [address] [place] [address] Lab, [place] Lab 03/20/2024 Travel 03/16/2024 Refill [facility] [place] [facility] [address] [place] [address] Héctor Bruno MD Refill Request (Gabapentin) 03/11/2024 Refill [facility] [address] [place] [address] Iris Brantley DO Refill Request (Amlodipine) 03/09/2024 Telephone [facility] [address] [place] [address] Iris Brantley DO Lab (Lab orders needed) 02/13/2024 3:30 PM CROWD CONTROLLER Telemedicine [facility] [address] [address] [place] [address] Jair Tyler, Librado Moreno MD 02/13/2024 Telephone [facility] 225 [facility] [address] [place] [phone] Danny Martinez MD Lab (Lab orders Needed) 02/13/2024 Telephone [facility] [address] [place] [phone] Danny Martinez MD Refill Request (pramipexole (MIRAPEX) 0.5 mg tablet) 02/13/2024 Telephone [facility] [address] [place] [address] Iris Brantley DO Questions (//); Error-please disregard (ERROR) 02/10/2024 Travel 02/04/2024 10:00 AM CROWD CONTROLLER Ancillary Procedure [facility] [address] [facility] [address] [place] [address] 02/04/2024 9:40 AM CROWD CONTROLLER Orders Only [facility] [address] [facility] [address] [place] [address] Lab 02/04/2024 Travel 01/29/2024 1:30 PM CROWD CONTROLLER Office Visit [facility] [address] [place] [address] Iris Brantley DO Medication Management 01/29/2024 Travel 01/28/2024 Orders Only [facility] [address] [place] [address] Iris Brantley, <No scans attached> 01/24/2024 Telephone [facility] [address] [facility] [place] [phone] Danny Martinez MD Medication Management [...] on file Legal Sex Female 6:15 AM CROWD CONTROLLER Gender Identity Not on file Sexual Orientation Not on file Obstetrics History Last Filed Vital Signs Vital Sign Reading Time Taken Comments Blood Pressure 114/73 04/16/2024 12:00 PM CROWD CONTROLLER Pulse 64 04/16/2024 12:00 PM CROWD CONTROLLER Temperature 36.8 C (98.2 F) 04/16/2024 12:00 PM CROWD CONTROLLER Respiratory Rate 16 04/16/2024 12:00 PM CROWD CONTROLLER Oxygen Saturation 94% 04/16/2024 12:00 PM CROWD CONTROLLER Inhaled Oxygen Concentration - - Weight 86.2 kg (190 lb) 01/23/2024 8:51 AM CROWD CONTROLLER Height 166.5 cm (5' 5.55) 01/23/2024 8:51 AM CS T Body Mass Index 31.09 01/23/2024 8:51 AM CROWD CONTROLLER Plan of Treatment Upcoming Encounters Date Type Department Care Team (Late st Contact Info) Description 04/24/2024 3:00 PM CROWD CONTROLLER Appointment [facility] [address] [place] [address] 05/05/2024 10:00 AM CDT Office Visit [facility] [address] [address] [place] [phone] Danny Martinez MD [address] [facility] [address] [place] [address] Health Maintenance Due Date Last Done Comments [...] Diagnosis Comments PHOSPHORUS Today 04/16/2024 11:50 AM CROWD CONTROLLER Iron deficiency Restless leg syndrome FERRITIN Routine 03/20/2024 10:01 AM CROWD CONTROLLER Iron deficiency CTA CHEST - RAD DUAL READ Routine 02/04/2024 10:36 AM CROWD CONTROLLER Aneurysm of ascending aorta without rupture CREATININE,ISTAT Routine 02/04/2024 9:38 AM CROWD CONTROLLER Preprocedural examination IRON PLUS IRON BINDING CAP Routine 02/04/2024 9:35 AM CROWD CONTROLLER Iron deficiency XR MAMMO LA BILAT SCREEN Routine 01/08/2024 8:14 AM CROWD CONTROLLER Visit for screening mammogram ANTI HCV Routine 03/08/2023 8:49 AM CROWD CONTROLLER Tingling of both feet LIPID PANEL W REFLEX MEASURED LDL Routine 02/06/2023 9:21 AM CROWD CONTROLLER Hyperlipidemia, unspecified hyperlipidemia type XR DXA BONE DENSITY 2 SITES AXIAL Routine 11/11/2019 1:53 PM CDT Menopause from Last 3 Months or Most Recently Relevant to Health Maintenance Results * PHOSPHORUS (04/16/2024 11:50 AM CROWD CONTROLLER) PHOSPHORUS 3.9 2.5 - 4.5 mg/dL 04/16/2024 12:11 PM CROWD CONTROLLER [facility] Blood BLOOD SPECIMEN / Unknown Venipuncture / Unknown 04/16/2024 11:50 AM CROWD CONTROLLER 04/16/2024 11:51 AM CROWD CONTROLLER us Danny Martinez MD CHEMISTRY Final Res ult [facility] [address] [address] [address] [place] [address] * FERRITIN (03/20/2024 10:01 AM CROWD CONTROLLER) FERRITIN 79 16 - 288 ng/mL [facility] Blood BLOOD SPECIMEN / Unknown 03/20/2024 10:01 AM CROWD CONTROLLER 03/20/2024 10:02 AM CROWD CONTROLLER us Danny Martinez MD CHEMISTRY Final Res ult [facility] [address] [place] [address], [facility] [address] [facility] [place] [address] * CTA CHEST - DUAL READ (02/04/2024 10:36 AM CROWD CONTROLLER) Anatomical Region Laterality Modality CHEST Computed Tomogra phy Impressions 02/06/2024 5:10 PM CROWD CONTROLLER 1. Please see dedicated cardiac imaging report. [...] 14:37:14 (Electronic Signature) Narrative 02/06/2024 5:10 PM CROWD CONTROLLER STUDY: CHEST AORTIC CT ANGIOGRAPHY Study date: [...] PATIENT: Results are automatically released to your [employer] account once available, in compliance with federal regulations. This means that you may see your results before your provider has had a chance to review them. Please allow 2-3 business days for your provider to comment on the results. Jace Esparza MD [facility] For Patients: As a result of the [...] conjunction with the services provided by the [facility] [place] ([facility]). CLINICAL HISTORY: Cardiac over-read. FINDINGS: Mediastinal structures: Unremarkable with no suspicious adenopathy. Pulmonary arteries: Bolus timing limits evaluation, no definite filling defects. Lungs and pleura: Extensive pleural plaques adjacent to the right upper lobe. No overall change. No pleural fluid. Iris Brantley DO CT Final Resu lt * CREATININE,ISTAT (02/04/2024 9:38 AM CROWD CONTROLLER) POCT,CREATININE , ISTAT 0.7 0.6 - 1.3 mg/dL [facility]Urgent [facility]) Blood BLOOD SPECIMEN / Unknown 02/04/2024 9:38 AM CROWD CONTROLLER 02/04/2024 9:38 AM CROWD CONTROLLER Narrative [facility] - 02/04/2024 10:05 AM CROWD CONTROLLER FASTING:YES FASTING: YES Iris Brantley DO CHEMISTRY Final Resu lt Performing Organization Address City/[facility] Co de Phone Number [facility] [address] [place] [address], [facility] (Urgent Care) [address] [place] [address] * IRON PLUS IRON BINDING CAP (02/04/2024 9:35 AM CROWD CONTROLLER) IRON, TOTAL 70 45 - 160 mcg/dL [facility] IRON BINDING CAPACITY 345 250 - 450 mcg/dL (calc) [facility] % SATURATION 20 16 - 45 % (calc) [facility] Blood BLOOD SPECIMEN / Unknown 02/04/2024 9:35 AM CROWD CONTROLLER 02/04/2024 9:37 AM CROWD CONTROLLER Narrative [facility] - 02/05/2024 3:55 AM CROWD CONTROLLER FASTING:YES FASTING: YES Danny Martinez MD CHEMISTRY Final Res ult Performing Organization Address [facility] Co de Phone Number [facility] [address] [place] [address], [facility] [address] [place] [address] * XR MAMMO LA BILAT SCREEN (01/08/2024 8:14 AM CROWD CONTROLLER) Anatomical Region Laterality Modality BREASTS, Breast Left, Breast Right Bilateral Mammography Impressions 01/09/2024 2:17 PM CROWD CONTROLLER There is no radiographic evidence for malignancy. Recommend annual mammograms. MAMMOGRAM ASSESSMENT: ACR 1 Negative PATIENTS: You will also receive a letter with your examination results in an easy to read format. If you have questions about your results, please contact your referring provider. Narrative 01/09/2024 2:17 PM CROWD CONTROLLER For Patients: As a result of the Century Cures Act, medical imaging exams and procedure reports are released immediately into your electronic medical record. You may view this report before your referring provider. If you have questions, please contact your health care provider. XR MAMMO LA BILAT SCREEN [500162] CLINICAL HISTORY: This is an asymptomatic 73 y.o. patient. INDICATION FOR EXAM: Mammogram Screening. TECHNIQUE: CC & MLO views were obtained. This study was evaluated with the assistance of Computer-Aided Detection. Breast Tomosynthesis was used in interpretation. COMPARISON FILM: Yes 12/25/22 [facility] 10/30/21 [facility] FINDINGS: There are scattered areas of fibroglandular density. There are no dominant masses, suspicious micro calcifications or areas of architectural distortion. Iris Brantley DO MAMMO Final Resu lt * ANTI HCV (03/08/2023 8:49 AM CROWD CONTROLLER) Pathologist [facility] HEPATITIS C ANTIBODY Non-Reacti ve Non-React peter 03/08/2023 5:51 PM CROWD CONTROLLER [facility] Comment:Please note, per www .CDC.gov: If a patient is known to be at high risk of HCV infection, or is symptomatic, and the physician's suspicion of HCV infection is high, HCV RNA testing is often employed and is of diagnostic value, even after an initial negative anti-HCV test result. Blood BLOOD SPECIMEN / Unknown Venipuncture / Unknown 03/08/2023 8:49 AM CROWD CONTROLLER 03/08/2023 8:54 AM CROWD CONTROLLER Iris Brantley DO SEND OUTS Final Resu lt [facility] [address] [place] [address], [place] * (ABNORMAL) LIPID PANEL W REFLEX MEASURED LDL (02/06/2023 9:21 AM CROWD CONTROLLER) Pathologist [facility] CHOLESTEROL,TOTAL 159 100 - 199 mg/dL 02/06/2023 4:32 PM CROWD CONTROLLER [facility] Comment: Cholesterol, Total Reference Ranges Desirable <200 mg/dL Borderline 200-239 mg/dL High >=240 mg/dL TRIGLYCERIDES 217(H) <150 mg/dL 02/06/2023 4:32 PM CROWD CONTROLLER [facility] HDL CHOLESTEROL 39(L) >40 mg/dL 4:32 PM CROWD CONTROLLER [facility] NON-HDL CHOLESTEROL 120 <145 mg/dl 02/06/2023 4:32 PM CROWD CONTROLLER [facility] CHOL/HDL RATIO 4.08 <4.50 02/06/2023 4:32 PM CROWD CONTROLLER [facility] LDL CHOLESTEROL 77 <=130 mg/dL 02/06/2023 4:32 PM CROWD CONTROLLER [facility] VLDL CHOLESTEROL 43(H) <=30 mg/dL 02/06/2023 4:32 PM [email or web address]AT[facility] PROVIDER ORDERED STATUS RANDOM 02/06/2023 4:32 PM CROWD CONTROLLER [facility] TRA [facility] Blood BLOOD SPECIMEN / Unknown Butterfly / Unknown 02/06/2023 9:21 AM CROWD CONTROLLER 02/06/2023 9:21 AM CROWD CONTROLLER us Iris Brantley DO CHEMISTRY Final Resu lt [facility] [address] [place] [id number], * (ABNORMAL) XR DXA BONE DENSITY 2 SITES AXIAL [00428.1] (11/11/2019 1:53 PM CDT) Anatomical Region Laterality Modality Spine, HIPS, HIPL, HIPR Other Narrative 11/12/2019 9:41 AM CDT Please see scanned document for results of this study. us Victoriano Hackett MD DEXA Final Resu lt from Last 3 Months or Most Recently Relevant to Health Maintenance Insurance [facility] MEDICARE ADVANTAGE MR MEDICARE PART A HB ONLY Advance Directives Documents on File Type Date Recorded Patient Security Coordinator Expl anation Healthcare Directive 02/12/2023 10:04 AM HEALTH CARE DIRECTIVE [facility] -06/06/2019 * Full Code (Latest Code Status on File) Date Activated Date Inactivated Comments 12/02/2019 7:11 AM 12/02/2019 11:18 AM Question Answer Comments Code Status Discussion: Not Discussed Care Teams Installation & Maintenance Executive Relationship Specialty Start Date End Date [place] [place] [address] PCP - General Family Practice 02/23/21
[2024-04-23 05:04] LABS: Slide Review Reflex No
[2024-04-23 05:15] LABS: Chloride* 107 mmol/L (96-114); Potassium* 3.7 mmol/L (3.6-5.1); Sodium* 141 mmol/L (135-149)
[2024-04-23 05:18] LABS: Anion Gap 9 mEq/L (7-15); Blood Urea Nitrogen* 15 mg/dL (7-30); Calcium* 8.9 mg/dL (8.4-10.6); Carbon Dioxide* 25 mmol/L (20-32); Creatinine* 0.6 mg/dL (0.5-1.5); Estimated Glomerular Filt Rate 95 ml/min; Glucose* 126 mg/dL (60-115)
[2024-04-23 05:21] LABS: D Dimer Quantitative* 0.67 ug/ml (0.00-0.50)
[2024-04-23 05:32] LABS: Troponin I* < 0.01 ng/mL (0.01-0.04)
--- NOTE | 2024-04-23 05:39 | CRLHL7_ITS ---
For Patients: As a result of the 21st Century Cures Act, medical imaging exams and procedure reports are released immediately into your electronic medical record. You may view this report before your referring provider. If you have questions, please contact your health care provider. INDICATION: Chest pain, positive D-dimer. Patient denies a history of any malignancies. COMPARISON: Radiographs 04/23/2024 TECHNIQUE: CT angiogram chest with contrast, pulmonary embolism protocol. Multiplanar axial, coronal, and sagittal reformats are included. MIP images to improve detection of pulmonary emboli are included. Intravenous contrast: 95 mL Isovue 370. FINDINGS: PE: Well-timed contrast bolus. No pulmonary emboli. Normal caliber main pulmonary artery. Mildly dilated right heart chambers. No reflux of contrast below the diaphragm. Airway: Deeply expiratory appearance of the airway. Lungs: Deeply expiratory appearance of both lungs. Small pulmonary nodules would easily be obscured. No consolidations. Pleura: There is extensive pleural nodularity and thickening throughout the right hemithorax with nodularity extending along the fissures as well. For example 1 of the pleural nodules along the lateral right mid chest measures 3.0 x 1.5 x 2.0 cm on series 4, image 93 and series 6, image 113. nodularity at the anterior upper chest measures 4.4 x 1.5 x 3.5 cm on series 4, image 42 and series 6, image 113. No pleural effusion. No nodularity seen in the left hemithorax.. Lymph nodes: No thoracic adenopathy. Mediastinum: No pneumomediastinum. No mass. Heart and great vessels: No pericardial effusion. Dilated cardiac chambers. Scattered atherosclerotic plaques. Ascending aorta size is at the upper limits of normal on this non gated exam measuring up to 3.9 cm. Chest wall: Normal. No masses. Upper abdomen: Normal. Bones: No fractures. No focal bone lesions. IMPRESSION: 1. No pulmonary embolism. 2. Deeply expiratory appearance of the airway and lungs. 3. Diffuse nodular pleural thickening on the right. No effusion. Differential is broad but includes lymphoma, mesothelioma, and metastatic disease. No obvious primary malignancy seen within the field of view. Recommend PET-CT and or tissue sampling. Discussed with Dr. Salmon at 6:57 a.m. on 04/23/2024. Please note that all CT scans at this facility use dose modulation, iterative reconstruction, and/or weight-based dosing when appropriate to reduce radiation dose to as low as reasonably achievable. Dictated by Tamara Yung MD @ 04/23/2024 6:59:09 AM (Electronically Signed)
[2024-04-23 06:15] LABS: NT Pro B Type NatriureticPept* 95 pg/mL
== END 2024-04-23 07:21 | disposition home or self-care (01) ==
PROVIDERS: Emergency Provider Family Medicine; PCP Family Medicine
DX: R07.9 Chest pain, unspecified (principal); R91.1 Solitary pulmonary nodule
CPT/HCPCS: 36415; 71045; 71275; 80048; 83880; 84484; 85025; 85379; 99283; 99284; 99285; Q9967

== ENCOUNTER 2024-09-24 13:28 | Outpatient (CLI) | payer MEDICARE, SELFPAY ==
--- NOTE | 2024-09-24 13:45 | MR_ITS ---
EXAM:?MR CERVICAL SPINE WITHOUT CONTRAST CLINICAL INFORMATION: 74-year-old female with neck pain and radiculopathy evaluate for degenerative disc disease or stenosis. COMPARISON: None.?SEDATION:?None. TECHNICAL INFORMATION: Imaging was performed at [facility]. T1, T2 FSE and STIR sagittal thin sections, T2 gradient refocused and T2 FSE axial sections at selected levels. INTERPRETATION: Fat suppressed images are negative for acute or subacute fractures. Intrinsically normal cord and unremarkable craniocervical junction. Normal vertebral artery flow voids. Unremarkable craniocervical junction. C1-2: Mild anterior degenerative changes with normal LOREN and space available for the cord at C1. C2-3 and C3-4: No disc herniation or central/foraminal stenosis. Facet degeneration at right C2-bilateral C3-4. C4-5: Severe disc degeneration, no central stenosis, severe bilateral chronic foraminal stenosis due to uncinate process hypertrophy and left facet hypertrophy. C5-6: Severe disc degeneration narrowing, cord indentation and moderate central stenosis due to midline dorsal disc herniation with annular calcification. Chronic severe bilateral foraminal stenosis due to uncinate process hypertrophy. C6-7: Severe disc degeneration and narrowing. Right posterolateral disc herniation flattens and deforms the dural sac without cord contact. Severe right foraminal stenosis and moderate left foraminal stenosis. No facet arthropathy. C7-T1: Normal disc height and no central stenosis. Left facet arthropathy. T1-2: Bulge indents dural sac and no central stenosis. Right facet arthropathy. CONCLUSION: Multilevel spondylosis, no fractures or mass lesions and significant most findings are as follows: 1. Partially calcified central C5-6 disc herniation indents and deforms the cord with moderate central stenosis. 2. Chronic dorsal osteophyte and bulge flatten dural sac at C6-7 and C4-5. 3. Multilevel foraminal stenosis, severe bilaterally at C4-5, C5-6 and severe right/moderate left at C6-7. Electronically signed on 09/25/2024 12:07:00 PM by Oren Chavez M.D.
== END 2024-09-24 13:29 | disposition home or self-care (01) ==
LOC: MRI 13:29
PROVIDERS: PCP Family Medicine; Visit Provider Orthopaedic Surgery Sports Medicine
DX: M54.12 Radiculopathy, cervical region (principal); M47.892 Other spondylosis, cervical region; M50.222 Other cervical disc displacement at C5-C6 level; M48.02 Spinal stenosis, cervical region; M50.30 Other cervical disc degeneration, unspecified cervical region
CPT/HCPCS: 72141

== ENCOUNTER 2024-11-16 23:34 | Emergency (ER) | payer MEDICARE, SELFPAY ==
--- OUTSIDE RECORDS SUMMARY | 2024-11-16 23:37 | XMS_ITS | Clinical Summary ---
Author Organization [employer] [facility] Address [facility] [place] [address] Care Team Providers Care Yarn Tester Name Role Phone Iris Brantley DO Primary Care Provider [phone] Melissa Allen Unavailable Dionna Atwood RD Unavailable Bridget Hair RN Unavailable [phone] Lana Magdaleno Unavailable Allergies No known active allergies Medications calcium carbonate/vitamin D2 (CALCIUM 600 + D ORAL) Take 600 mg by mouth once daily. Active propranoloL (INDERAL) 10 mg tabletIndications :Performance anxiety TAKE ONE TO TWO TABLETS BY MOUTH EVERY DAY NEEDED FOR PERFORMANCE ANXIETY 10 Tablet 1 024 Active multivit,thx,calc ium,iron,mins (MULTIVITAMIN AND MINERAL ORAL) Take by mouth. A ctive pramipexole (MIRAPEX) 0.5 mg tabletIndications :Restless leg syndrome Take 2 Tablets (1 mg) by mouth at bedtime. 180 Tablet 3 024 Active rosuvastatin (CRESTOR) 20 mg tabletIndications :Hyperlipidemia, unspecified hyperlipidemia type TAKE ONE TABLET BY MOUTH AT BEDTIME 90 Tablet 2 025 Active medication order composer vitron C 65 mg, take 1 tablet bid Active gabapentin 300 mg capsuleIndication s:Restless leg syndrome Take 3 Capsules (900 mg) by mouth at bedtime AND 2 Capsules (600 mg) once daily in the afternoon. 025 Active blood-glucose meterIndications: New onset type 2 diabetes mellitus (HC) Check glucose twice daily. Dispense meter covered by pts insurance. 1 Each 025 Active blood sugar diagnostic (Blood Glucose Test) stripIndications: New onset type 2 diabetes mellitus (HC) Test 2 times per day. 100 Each 12 025 Active lancetsIndication s:New onset type 2 diabetes mellitus (HC) As directed. Test 2 times per day. 100 Each 025 Active Mounjaro 2.5 mg/0.5 mL penIndications:ty pe 2 diabetes mellitus Inject 2.5 mg subcutaneous once weekly. 2 mL 025 Active losartan (COZAAR) 25 mg tabletIndications :Diabetic nephropathy associated with type 2 diabetes mellitus (HC) Take 1 Tablet (25 mg) by mouth once daily. 90 Tablet 1 025 Active CPAPIndications:M ild obstructive sleep apnea,Persistent disorder [...] & Reusable (A7039) x 1pk/6mo 1 Each 025 Active sennosides-docusa te (SENOKOT S) (8.6-50 mg) tabletIndications :Spinal stenosis of lumbosacral region Take 1 Tablet by mouth once daily. 60 Tablet 11/08/19 25 2:47 PM CDT 025 Active oxyCODONE (ROXICODONE) 5 mg immediate release tabletIndications :Spinal stenosis of lumbosacral region Take 1 Tablet (5 mg) by mouth every 4 hours if needed for Pain. 25 Tablet 11/08/19 2:47 PM CDT 025 Active ondansetron (ZOFRAN ODT) 4 mg disintegrating tabletIndications :Spinal stenosis of lumbosacral region Place 1 Tablet (4 mg) on the tongue every 8 hours if needed for Nausea/Vomiting . 42 Tablet 11/08/19 2:47 PM CDT 025 Active acetaminophen (TYLENOL EXTRA STRGTH) 500 mg tabletIndications :Spinal stenosis of lumbosacral region Take 2 Tablets (1,000 mg) by mouth 3 times daily if needed for Pain. Max acetaminophen dose: 4000mg in 24 hrs. 90 Tablet 11/08/19 2:47 PM CDT 025 2024 Active methocarbamoL 500 mg tabletIndications :Spinal stenosis of lumbosacral region Take 1 Tablet (500 mg) by mouth every 8 hours if needed for Muscle Spasm. 42 Tablet 1 11/08/19 2:47 PM CDT 025 Active aspirin enteric coated 81 mg tabletIndications :Coronary artery disease, unspecified vessel or lesion type, unspecified whether angina present, unspecified whether false pass or transplanted heart Take 1 Tablet (81 mg) by mouth once daily with a meal. Restart from 11/12/2024 025 Active oxybutynin XL (DITROPAN XL) 10 mg CR tabletIndications :Overactive bladder Take 2 Tablets (20 mg) by mouth once daily. At bedtime Active aspirin (ECOTRIN) 81 mg enteric coated tablet Take 1 Tablet (81 mg) by mouth once daily with a meal. 0 2024 Discontinued sennosides (Senna) 8.6 mg tablet Take 8.6 mg by mouth 2 times daily if needed for Constipation. 2024 Discontinued(* IP Discontinued) CPAPIndications:M ild obstructive sleep apnea,Persistent disorder of [...] & Reusable (A7039) x 1pk/6mo 1 Each 11 024 2024 Discontinued(R eorder (E-cancel not sent)) ferric carboxymaltose 100 mg iron/2 mL solnIndications:I tejas deficiency,Restle ss leg syndrome Inject 1,000 mg intravenous once daily before a meal. 025 2024 Discontinued(* Med complete/Regim en complete/Level of care change) Wegovy 0.25 mg/0.5 mL subcutaneous penIndications:ca rdiovascular event risk reduction in obesity Inject 0.25 mg subcutaneous once weekly. 2 mL 025 2024 Discontinued(* IP Discontinued) oxybutynin XL (DITROPAN XL) 10 mg CR tabletIndications :Overactive bladder Take 2 Tablets (20 mg) by mouth once daily. 60 Tablet 025 2024 Discontinued losartan (COZAAR) 50 mg tabletIndications :Diabetic nephropathy associated with type 2 diabetes mellitus (HC) Take 1 Tablet (50 mg) by mouth once daily. 90 Tablet 3 025 2024 Discontinued(* Medication adjustment) oxybutynin XL (DITROPAN XL) 10 mg CR tabletIndications :Overactive bladder TAKE TWO TABLETS (20MG) BY MOUTH ONCE EVERY DAY 180 Tablet 1 025 2024 Discontinued WalkerIndications :Cervical spinal stenosis Walker with front wheels for home use for 3 months. 1 Each 025 2024 Discontinued(* Med complete/Regim en complete/Level of care change) Active Problems Problem Noted Date Diagnosed Date Cervical spinal stenosis 11/06/2024 HTN (hypertension) 11/06/2024 Hyperlipidemia 11/06/2024 Type 2 diabetes mellitus wit hout complication, without long-term current use of insulin 11/06/2024 Mild obstructive sleep apnea 05/05/2024 Iron deficiency 03/31/2024 Restless leg syndrome 03/31/2024 PMR (polymyalgia rheumatica) 12/20/2022 Depression, recurrent 10/17/2021 Ascending aortic aneurysm 09/27/2021 Overview (11/12/2024): Had echocardiogram and CT in hospital 09/2021. Follow up CT 01/2024 CT 11/12/24 done for other reasons shows stable at 4cm NSTEMI (non-ST elevation myocardial infarction) 09/27/2021 Overview (10/22/2024): in 2021 was hospitalized for pyelonephritis and had elevated troponin's which were thought due to acute illness. She had cardiology econsult related to this in 2021 Non-ACS troponin elevation from sepsis. Doesn't meet criteria for ACS thus I dont think needs typical asa/plavix acutely. He recommend coronary CT which was done and showed: 1. Nonobstructive coronary atherosclerosis Walks 1-4 miles without chest pain/sob with exertion. 2. Total coronary artery calcium score 65. ESCOBEDO percentile based on age, gender, and race is 66. 3. No evidence of epicardial coronary artery disease to explain patient's symptoms. (very small diagonal is occluded, unlikely to lead to current symptoms) 4. Patient exhibits elevated coronary atherosclerosis burden and will likely benefit from aggressive risk factor modification. Situational anxiety 01/20/2020 Performance anxiety 02/16/2011 Resolved Problems Problem Noted Date Diagnosed Date Resolved Date Pulmonary embolus, left 12/20/2022 07/2 05/2023 Encounters Date Type Department Care Team Description 11/12/2024 2:00 PM CDT Ancillary Procedure [facility] [address] [place] [address] Arrived 11/12/2024 1:05 PM CDT Office Visit [facility] [address] [place] [address] Iris Brantley, Hospital F/U 11/12/2024 Travel 11/09/2024 Patient Outreach [facility] [address] [facility] [address] Dania Thayer, ANA Primary RN Care Management; Hospital F/U (Lace=50) 11/06/2024 7:32 AM CDT Anesthesia Event [facility] [address], [place] [address] Edu Mccoy MD Radcliffe, Katherine A, CRNA Student 11/06/2024 7:00 AM CDT - 11/06/2024 12:[address] [facility] [address], [place] [address] Prosper Frias MD ACDF - Anterior Cervical Decompression Fusion Levels: C5 to: T1 11/06/2024 5:16 AM CDT - 11/07/2024 2:55 PM CDT Hospital Encounter [facility] [address] [place] [address] Prosper Frias MD Cervical spinal stenosis (Primary Dx); Spinal stenosis of lumbosacral region; Overactive bladder; Coronary artery disease, unspecified vessel or lesion type, unspecified whether angina present, unspecified whether false pass or transplanted heart Discharge Disposition: Home Self Care 11/05/2024 Travel 10/28/2024 9:30 AM CDT Orders Only [facility] [address] [facility] [address] [place], [place] [facility] 10/28/2024 Travel 10/27/2024 Refill [facility] [address] [facility] [place] [address] Iris Brantley DO Refill Request (Oxybutynin Xl) 10/26/2024 Orders Only [facility] [address] [facility] [address] Iris Brantley DO 1 scan: (1-Ord) CHANTAL-EKG-9.4.25 10/23/2024 Travel 10/22/2024 1:30 PM CDT Office Visit [facility] [address] [facility] [place] [address] Iris Brantley DO Preoperative Exam (DOS: 11/06/2024, ACDF - Anterior Cervical Decompression Fusion Levels: C5 to: T1, Dr. Frias, [place]); Follow Up (Blood pressure and medication changes) 10/22/2024 Travel 10/20/2024 Orders Only [facility] Scanner 1 scan: (1-Ord) [facility], 10/20/2024 10/13/2024 2:00 PM CDT Patient Outreach [address] [phone] Bridget Hair RN Diabetes (Assessment/new diagnosis) 10/13/2024 Travel 10/07/2024 8:55 AM CDT Ancillary Procedure [facility] [address] [facility] [address] [facility] [address] [place] [address] 10/07/2024 Travel 10/06/2024 11:30 AM CDT Telemedicine [address] [phone] Melissa Allen PA Telehealth (No vitals taken); Weight ([facility] follow up) 10/05/2024 2:40 PM CDT Nurse/Clinic Staff Only [facility] [address] [place] [address] Blood Pressure; Education (Accucheck) 10/05/2024 Travel 10/01/2024 11:00 AM CDT Nutrition/Assistant To The Dean [address] [phone] 10/01/2024 Travel 09/30/[address] [facility] [address] [facility] [address] [place] [address] Prosper Frias MD <No scans attached> 09/30/2024 Travel 09/28/2024 1:00 PM CDT Ancillary Procedure [facility] [address] [place] [address] 09/28/2024 Telephone [facility] [address] [place] [address] Iris Brantley, Form 09/27/2024 Travel 09/26/2024 Orders Only [facility] [address] [place] [address] Iris Brantley DO <No scans attached> 09/25/2024 2:20 PM CDT Office Visit [facility] [address] [place] [address] Iris Brantley DO Medicare ANNUAL (subsequent) Visit (74 year old ) 09/24/2024 Orders Only [facility] Scanner 1 scan: (1-Ord) MARI, MR CERVICAL SPINE WO CON, 09/24/2024 09/24/2024 Travel 09/02/2024 9:45 AM CDT Orders Only [facility] [address] [address] [facility] [place] [address] Lab, [facility] 09/02/2024 Travel 08/25/2024 Refill [facility] [address] [place] [address] Iris Brantley DO Refill Request (Oxybutynin Xl) 08/20/[address] [address] Melissa Allen PA Med Change Request 08/19/[address] [phone] Melissa Allen PA Medication Management (/topiramate 25 mg tablet /) from Last 3 Months Immunizations Immunization Administration Dates Next Due COVID-19 VACCINE SPIKEVAX [...] Comments Cancer-breast Maternal Aunt Cancer-breast Maternal Grandmother Anxiety disorder Mother Depression Mother Relation Name Status Comments Maternal Aunt Maternal Grandmother Mother Social History Tobacco Use Types Packs/Day Years Used Date Smoking Tobacco: Never Passive Smoke Exposure: Never Smokeless Tobacco: Never Tobacco Cessation:Counseling Given: No Alcohol Use Standard Drinks/Week Comments Not Currently 0 (1 standard drink = 0.6 oz pur e alcohol) PHQ-2 Answer Date Recorded PHQ-2 TOTAL SCORE 1 09/25/2024 Social Connections Answer Date Recorded Do you [...] on file Legal Sex 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 Gender Identity Not on file Sexual Orientation Not on file Obstetrics History Last Filed Vital Signs Vital Sign Reading Time Taken Comments Blood Pressure 116/75 11/12/2024 1:01 PM CDT Pulse 66 11/12/2024 1:01 PM CDT Temperature 36.6 C (97.8 F) 11/07/2024 8:27 AM CDT Respiratory Rate 16 11/07/2024 8:27 AM CDT Oxygen Saturation 92% 11/12/2024 1:01 PM CDT Inhaled Oxygen Concentration - - Weight 94.3 kg (208 lb) 11/12/2024 1:01 PM CDT Height 166.4 cm (5' 5.5) 11/06/2024 6:00 AM CDT Body Mass Index 34.09 11/06/2024 6:00 AM CDT Plan of Treatment Upcoming Encounters Date Type Department Care Team (Late st Contact Info) Description 12/03/2024 11:00 AM CDT Nutrition/Assistant To The Dean [facility] [address] [place] [address] Dionna Atwood, [place] [address] [place] [address] 12/16/2024 9:30 AM CDT Office Visit [facility] [address] [facility] [address] [place] [phone] Danny Martinez MD [address] [facility] [address] [place] [address] 12/28/2024 8:20 AM PLUSH FINISHER Office Visit [facility] [address] [place] [address] Iris Brantley DO [address] [place] [address] 02/16/2025 10:00 AM PLUSH FINISHER Telemedicine [facility] [address] [place] [phone] Melissa Allen PA [address] [place] [address] Health Maintenance Due Date Last Done Comments Hepatitis B series for 19+ ( 2 of 3 - Hep B Twinrix 3-dose series) 01/12/2003 12/15/2002 COVID-19 vaccine series ( season) 2024 11/04/2023, 06/12/2023, 12/06/2021, Additional history exists Influenza Vaccine (#1) 2024 , 12/04/2022, 12/06/2021, Additional history exists Mammogram for age 45-75 01/07/2025 01/08/20, 12/25/2022, 10/30/2021, Additional history exists CT Colonography for age 45-75 03/01/2025 03/01/2020 Depression screening for age 12+ 09/25/2025 09/25/2024, 09/11/2023, 09/11/2023, Additional history exists Medicare Wellness for age 65+ 09/26/2025, 02/06/2023, 01/01/2022, Additional history exists BMI (ht and wt on same day) for age 18+ 10/22/2025 10/22/2024, 10/06/2024, 10/01/2024, Additional history exists Tetanus booster 07/24/2028 07/24/2018, 07/09/2007 Lipids for age 45-75 09/25/2029 09/25/2024, 02/06/2023, 01/01/2022, Additional history exists Zoster (shingles) series for age 50+ Completed 07/20/2020, 03/07/2020 Pneumococcal series for age 50+ Completed , 11/09/2019 RSV vaccine for adults or Completed 12/04/2022 Hepatitis C screening for ag e 18-79 Completed 03/08/2023, 01/01/2022 DEXA/DXA scan for age 65+ Completed 09/28/2024, Medical Devices Implanted Type Area Training Consultant Device Identifier Shelf Expiration Date Model / Serial / Lot Bone [id number] Cornerstone Lasr Spacer - [id number] Implanted:Qty: 1 on 11/06/2024 by Prosper Frias MD at [facility] N/A: Spine Medtronic Spine/Ortho [id number] 09/19/2026 [id number] / [id number] / [id number] Bone [id number] Cornerstone Lasr Spacer - [id number] Implanted:Qty: 1 on 11/06/2024 by Prosper Frias MD at [facility] N/A: Spine Medtronic Spine/Ortho [id number] 07/10/2026 [id number] / [id number] / [id number] Bone [id number] Cornerstone Lasr Spacer - [id number] Implanted:Qty: 1 on 11/06/2024 by Prosper Frias MD at [facility] N/A: Spine Medtronic Spine/Ortho [id number] 09/18/2026 [id number] / [id number] / [id number] Plate Spinal 1.9x51mm 3 Lvl Zevo - [id number] Implanted:Qty: 1 on 11/06/2024 by Prosper Frias MD at [facility] N/A: Spine Medtronic Spine/Ortho [id number] / / Screw Cerv Ant 3.5x15mm Zevo Slf Drilling - [id number] Implanted:Qty: 8 on 11/06/2024 by Prosper Frias MD at [facility] N/A: Spine Medtronic Spine/Ortho [id number] / / Putty Easypack 1.5cc Magnetos - [id number] Implanted:Qty: 1 on 11/06/2024 by Prosper Frias MD at [facility] N/A: Spine [employer] 04/18/2029 [id number] / / [id number] Procedures Procedure Name Priority Date/Time Associated Diagnosis Comments CT CHEST PE STUDY STAT 11/12/2024 2:12 PM CDT SOB (shortness of breath) GLUCOSE METER Timed 11/07/2024 11:06 AM CDT GLUCOSE METER Timed 11/07/2024 7:19 AM CDT CREATININE Early AM 11/07/2024 6:43 AM CDT HEMOGLOBIN Early AM 11/07/2024 6:43 AM CDT GLUCOSE METER Timed 11/06/2024 10:03 PM CDT GLUCOSE METER Timed 11/06/2024 4:44 PM CDT GLUCOSE METER Timed 11/06/2024 12:21 PM CDT XR C-ARM EQUAL OR GREATER 3 HR Routine 11/06/2024 11:27 AM CDT ENDOTRACHEAL TUBE Routine 11/06/2024 9:03 AM CDT ENDOTRACHEAL TUBE Routine 11/06/2024 9:03 AM CDT HCHG KIT PR5 Routine 11/06/2024 8:15 AM CDT HCHG DRSG PR1 Routine 11/06/2024 8:15 AM CDT HCHG TUBING PR20 Routine 11/06/2024 8:15 AM CDT HCHG TUBING PR1 Routine 11/06/2024 8:15 AM CDT HCHG CATH INFUSION PR10 Routine 11/06/2024 8:15 AM CDT FUSION DISCECTOMY ANTERIOR CERVICAL 03 Tier 3: within 90 days 11/06/2024 7:01 AM CDT 1) Stenosis, Cervical M48.02 2) Radiculopathy, Cervical M54.12 Case Notes IOM C_ArmInsert Ledesma Frefifpa1582/ether screenGardner Wells tongsAutograft Cortical/CancellousZevo bone, peek MR GLUCOSE METER Timed 11/06/2024 6:13 AM CDT SCAN-CARDIAC STRIP 11/06/2024 12:00 AM CDT IRON PLUS IRON BINDING CAP Routine 10/28/2024 9:36 AM CDT Restless leg syndrome Iron deficiency FERRITIN Routine 10/28/2024 9:36 AM CDT Restless leg syndrome Iron deficiency EKG 12 LEAD Routine 10/26/2024 3:35 PM CDT Pre-op exam NSTEMI (non-ST elevation myocardial infarction) (HC) ID READING EKG - NO CHARGE, COMP ONLY Routine 10/26/2024 3:34 PM CDT Pre-op exam NSTEMI (non-ST elevation myocardial infarction) (HC) HEMOGLOBIN Routine 10/22/2024 2:50 PM CDT Pre-op exam BASIC METABOLIC PANEL Routine 10/22/2024 2:50 PM CDT HTN (hypertension) SCAN-EYE EXAM 10/20/2024 12:00 AM CDT XR SPINE CERVICAL 4 OR 5 VIEWS Routine 10/07/2024 8:54 AM CDT Pain of cervical spine XR DXA BONE DENSITY 2 SITES AXIAL Routine 09/28/2024 1:31 PM CDT Osteopenia, unspecified location Other specified disorders of bone density and structure, other site LDL CHOLESTEROL,DIRECT Routine 09/25/2024 3:40 PM CDT New onset type 2 diabetes mellitus (HC) URINE ALBUMIN TO CREATININE RATIO, RANDOM Routine 09/25/2024 3:39 PM CDT New onset type 2 diabetes mellitus (HC) SCAN-MRI INTERPRETATION 09/24/2024 12:00 AM CDT VITAMIN D 25 (DEFICIENCY) Routine 09/02/2024 9:40 AM CDT Class 2 severe obesity with serious comorbidity and body mass index (BMI) of 36.0 to 36.9 in adult, unspecified obesity type (HC) Encounter for vitamin deficiency screening COMP METABOLIC PANEL Routine 09/02/2024 9:40 AM CDT Class 2 severe obesity with serious comorbidity and body mass index (BMI) of 36.0 to 36.9 in adult, unspecified obesity type (HC) Iron deficiency INSULIN Routine 09/02/2024 9:40 AM CDT Class 2 severe obesity with serious comorbidity and body mass index (BMI) of 36.0 to 36.9 in adult, unspecified obesity type (HC) VITAMIN B12 Routine 09/02/2024 9:40 AM CDT Class 2 severe obesity with serious comorbidity and body mass index (BMI) of 36.0 to 36.9 in adult, unspecified obesity type (HC) Encounter for vitamin deficiency screening HEMOGLOBIN A1C Routine 09/02/2024 9:40 AM CDT Class 2 severe obesity with serious comorbidity and body mass index (BMI) of 36.0 to 36.9 in adult, unspecified obesity type (HC) Iron deficiency HEMOGLOBIN Routine 09/02/2024 9:40 AM CDT Class 2 severe obesity with serious comorbidity and body mass index (BMI) of 36.0 to 36.9 in adult, unspecified obesity type (HC) XR MAMMO LA BILAT SCREEN Routine 01/08/2024 8:14 AM PLUSH FINISHER Visit for screening mammogram ANTI HCV Routine 03/08/2023 8:49 AM PLUSH FINISHER Tingling of both feet from Last 3 Months or Most Recently Relevant to Health Maintenance Results * CT CHEST PE STUDY (11/12/2024 2:12 PM CDT) Anatomical Region Laterality Modality CHEST, THORAX, HEART Computed To mography 11/12/2024 2:28 PM CDT Impressions 11/12/2024 2:28 PM CDT 1. No gross acute cardiopulmonary abnormality. No pulmonary embolism is seen. 2. Grossly stable significant noncalcified pleural plaquing/nodularity within the right lung compared to 02/04/2024. Recommend correlation with the patient`s clinical history. Please note that all CT scans at this facility use dose modulation, iterative reconstruction, and/or weight-based dosing when appropriate to reduce radiation dose to as low as reasonably achievable. Dictated by Pablo Ortiz MD @ 11/12/2024 2:28:58 PM (Electronically Signed) Narrative 11/12/2024 2:28 PM CDT For Patients: As a result of the Cures Act, medical imaging exams and procedure reports are released immediately into your electronic medical record. You may view this report before your referring provider. If you have questions, please contact your health care provider. INDICATION: Shortness of breath. History of PE reported recent surgery. TECHNIQUE: CT chest PE was acquired with 100 cc Omnipaque 350 IV contrast. Coronal and MIP reconstructions were performed. COMPARISON: Dual read CT dated 02/04/2024. FINDINGS: No pulmonary embolism is seen. Mild dilatation of the aortic root measuring 4.0 centimeters. Ectasia of the aorta at the level of the main pulmonary. Respiratory motion is present. Mild dependent ground-glass likely represents atelectasis. Linear scarring and calcification is seen in the right upper lobe extending to the posterior pleura. No pulmonary edema seen. Redemonstrated is extensive nodularity along the pleural reflections at the right lung with extends into the right major fissure. This is not definitively changed compared to the prior no significant left pleural plaquing. No pleural effusion or pneumothorax. No mediastinal or hilar lymphadenopathy. Cardiomegaly is present. Trace effusion. Coronary calcification is present. No axillary lymphadenopathy. No chest wall mass. Images of the upper abdomen demonstrate thickening of the stomach, likely due to underdistention. Bone windows demonstrate no acute finding. Procedure Note Pablo Ortiz MD - 11/12/2024 For Patients: As a result of the Century Cures Act, medical imagingexams and procedure reports are released immediately into your electronicmedical record. You may view this report before your referring provider.If you have questions, please contact your health care provider. INDICATION: Shortness of breath. History of PE reported recent surgery. TECHNIQUE: CT chest PE was acquired with 100 cc Omnipaque 350 IV contrast. Coronaland MIP reconstructions were performed. COMPARISON: Dual read CT dated 02/04/2024. FINDINGS: No pulmonary embolism is seen. Mild dilatation of the aortic rootmeasuring 4.0 centimeters. Ectasia of the aorta at the level of the mainpulmonary. Respiratory motion is present. Mild dependent ground-glass likelyrepresents atelectasis. Linear scarring and calcification is seen in theright upper lobe extending to the posterior pleura. No pulmonary edemaseen. Redemonstrated is extensive nodularity along the pleural reflectionsat the right lung with extends into the right major fissure. This is notdefinitively changed compared to the prior no significant left pleuralplaquing. No pleural effusion or pneumothorax. No mediastinal or hilar lymphadenopathy. Cardiomegaly is present. Trace effusion. Coronary calcification ispresent. No axillary lymphadenopathy. No chest wall mass. Images of the upper abdomen demonstrate thickening of the stomach, likelydue to underdistention. Bone windows demonstrate no acute finding. IMPRESSION: 1. No gross acute cardiopulmonary abnormality. No pulmonary embolism isseen. 2. Grossly stable significant noncalcified pleural plaquing/nodularitywithin the right lung compared to 02/04/2024. Recommend correlation withthe patient`s clinical history. Please note that all CT scans at this facility use dose modulation,iterative reconstruction, and/or weight-based dosing when appropriate toreduce radiation dose to as low as reasonably achievable. Dictated by Pablo Ortiz MD @ 11/12/2024 2:28:58 PM (Electronically Signed) Iris Bertha Brantley DO CT Final Resu lt * (ABNORMAL) GLUCOSE METER (11/07/2024 11:06 AM CDT) Only the most recent of6 resultswithin the time period is included. GLUCOSE METER 161(H) 65 - 100 mg/dL 11/07/2024 11:12 AM CDT [facility] Blood BLOOD SPECIMEN / Unknown 11/07/2024 11:06 AM CDT 11/07/2024 11:12 AM CDT Prosper Frias MD CHEMISTRY Final Result Performing Organization Address [facility]/ZIP Co de Phone Number [facility] [address] [place] [address], [place] * Hemoglobin AM (11/07/2024 6:43 AM CDT) Only the most recent of3 resultswithin the time period is included. Pathologist [facility] HEMOGLOBIN 12.5 12.0 - 16.0 g/dL 11/07/2024 7:11 AM CDT [facility] MCV 90 80 - 100 fL 11/07/2024 7:11 AM CDT [facility] Blood BLOOD SPECIMEN / Unknown Venipuncture / Unknown 11/07/2024 6:43 AM CDT 11/07/2024 7:00 AM CDT Garcia MORIN HEMATOLOGY Whitney l Result Performing Organization Address City/[facility]/[place]UST Co de Phone Number [facility] [address] [place] [address], [place] * (ABNORMAL) Creatinine AM (11/07/2024 6:43 AM CDT) Pathologist [facility] eGFR >90 >90 mL/min/1.7 3m2 11/07/2024 7:49 AM CDT [facility] Comment:As of 2021, eG FR is calculated by the CKD-EPI creatinine equation without race adjustment. eGFR can be influenced by muscle mass, exercise, and diet. The reported eGFR is an estimation only and is only applicable if the renal function is stable. CREATININE 0.47(L) 0.50 - 0.90 mg/dL 11/07/2024 7:49 AM CDT [facility] Blood BLOOD SPECIMEN / Unknown Venipuncture / Unknown 11/07/2024 6:43 AM CDT 11/07/2024 7:02 AM CDT Garcia MORIN CHEMISTRY Whitney l Result [facility] [address] [place] [address], * XR C-ARM EQUAL OR GREATER 3 HR (11/06/2024 11:27 AM CDT) Anatomical Region Laterality Modality Other Narrative 11/06/2024 8:16 AM CDT 21 seconds fluoroscopy time was provided. See operative/procedure report for further information. Prosper Frias MD FLUOROSCOPY Final Result * HCHG TUBE PR1, HCHG STYLET PR1 (11/06/2024 9:03 AM CDT) Narrative Sharee Reynoso CRNA - 11/06/2024 9:03 AM CDT Sharee Reynoso CRNA 11/06/2024 9:05 AM Procedure: ETT Patient location during procedure: OR ETT Properties Mask Ventilation: easy and oral airway Type: straight Location: oral Cuffed: yes Tube Size: 7.0 mm Stylet: yes Laryngoscope Blade: Mac Blade Size: 3 Cormack-Lehane Grade View: 1 Insertion Attempts: 2 (intubated per Dr. Mccoy) Placement Verification: auscultation Assessment: pharynx clear, atraumatic and dentition unchanged Secured at: 22 Measured From: lips Bite Block: soft (bite blocks per neuromonitoring) Difficulty: 0 (not difficult) Difficulty Comment: anterior glottis, large tongue and small mouth us Edu Mccoy MD ANESTHESIA PX NOTE ORDERABLES Final Result * HCHG CATH INFUSION PR10, HCHG TUBING PR1, HCHG TUBING PR20, HCHG DRSG PR1, HCHG KIT PR5 (58:15 AM CDT) Narrative Edu Mccoy MD - 11/06/2024 8:15 AM CDT Edu Mccoy MD 11/06/2024 8:15 AM Arterial Line Patient location during procedure: OR Staffing Preanesthetic Checklist Completed: patient identified, risks and benefits discussed, consent obtained and timeout performed Arterial Line Patient position: supine. Comment:. Laterality: left Site: radial Ultrasound guidance: No ultrasound used. Securement/dressing: dressing applied. 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 Comment:. Catheter length: 12 cm. Comment: Events: no complications. Edu Mccoy MD ANESTHESIA PX NOTE ORDERABLES Final Result * SCAN-CARDIAC STRIP (11/06/2024 12:00 AM CDT) Narrative 11/06/2024 12:00 AM CDT Ordered by an unspecified provider. Other Clinical Staff OTHER Final Resul t * IRON PLUS IRON BINDING CAP (10/28/2024 9:36 AM CDT) IRON, TOTAL 85 45 - 160 mcg/dL 10/29/2024 5:07 AM CDT [facility] IRON BINDING CAPACITY 293 250 - 450 mcg/dL (calc) 10/29/2024 5:07 AM CDT [facility] % SATURATION 29 16 - 45 % (calc) 10/29/2024 5:07 AM CDT [facility] Blood BLOOD SPECIMEN / Unknown [facility] / Unknown 10/28/2024 9:36 AM CDT 10/28/2024 9:36 AM CDT Danny Martinez MD CHEMISTRY Final Res ult [facility] [place] [address] [place] [address], [place] [phone] * (ABNORMAL) FERRITIN (10/28/2024 9:36 AM CDT) FERRITIN 433(H) 16 - 288 ng/mL 10/29/2024 4:25 AM CDT [facility] Blood BLOOD SPECIMEN / Unknown [facility] / Unknown 10/28/2024 9:36 AM CDT 10/28/2024 9:36 AM CDT Danny Martinez MD CHEMISTRY Final Res ult [facility] [place] [address] [place] [address], [place] [phone] * EKG 12 LEAD (10/26/2024 3:35 PM CDT) Iris Brantley DO EKG ORD Final Resu lt * ID READING EKG - NO CHARGE, COMP ONLY (10/26/2024 3:34 PM CDT) Iris Brantley DO PB - PROVIDER READINGS Fin al Result * BASIC METABOLIC PANEL (10/22/2024 2:50 PM CDT) SODIUM 141 135 - 146 mmol/L 10/23/2024 4:48 AM CDT [facility] POTASSIUM 4.0 3.5 - 5.3 mmol/L 10/23/2024 4:48 AM CDT [facility] CARBON DIOXIDE 25 20 - 32 mmol/L 10/23/2024 4:48 AM CDT [facility] GLUCOSE 94 65 - 99 mg/dL 10/23/2024 4:48 AM CDT [facility] Comment: Fasting reference interval CALCIUM 9.7 8.6 - 10.4 mg/dL 10/23/2024 4:48 AM CDT [facility] CREATININE 0.62 0.60 - 1.00 mg/dL 10/23/2024 4:48 AM CDT [facility] BUN/CREATININE RATIO SEE NOTE: 6 - 22 (calc) 10/23/2024 4:48 AM CDT [facility] Comment: Not Reported: BUN and Creatinine are within reference range. EGFR 94 > OR = 60 mL/min/1. 73m2 10/23/2024 4:48 AM CDT [facility] UREA NITROGEN (BUN) 21 7 - 25 mg/dL 10/23/2024 4:48 AM CDT [facility] ELECTROLYTE BALANCE 9 7 - 17 mmol/L (calc) 10/23/2024 4:48 AM CDT [facility] CHLORIDE 107 98 - 110 mmol/L 10/23/2024 4:48 AM CDT [facility] Blood BLOOD SPECIMEN / Unknown [facility] / Unknown 10/22/2024 2:50 PM CDT 10/22/2024 2:50 PM CDT us Iris Brantley DO CHEMISTRY Final Resu lt [facility] [address] [place] [address], * SCAN-EYE EXAM (10/20/2024 12:00 AM CDT) us Scanner OTHER Final Result * XR SPINE CERVICAL 4 OR 5 VIEWS (10/07/2024 8:54 AM CDT) Anatomical Region Laterality Modality Spine, CERVICAL SPINE Digital Ra diography 10/07/2024 8:54 AM CDT Impressions 10/08/2024 8:30 AM CDT Vertebral body heights are maintained. Multilevel loss of disc height in the inferior cervical spine, mild. No prevertebral edema. No anterolisthesis or retrolisthesis. Lung apices are unremarkable. Narrative 10/08/2024 8:30 AM CDT For Patients: As a result of the Cures Act, medical imaging exams and procedure reports are released immediately into your electronic medical record. You may view this report before your referring provider. If you have questions, please contact your health care provider. EXAM: XR SPINE CERVICAL 4 OR 5 VIEWS LOCATION: [facility] DATE: 10/07/2024 INDICATION: Pain Of Cervical Spine COMPARISON: None. Procedure Note Puneet Mark MD - 10/08/2024 For Patients: As a result of the Cures Act, medical imagingexams and procedure reports are released immediately into your electronicmedical record. You may view this report before your referring provider.If you have questions, please contact your health care provider. EXAM: XR SPINE CERVICAL 4 OR 5 VIEWS [facility] DATE: 10/07/2024 INDICATION: Pain Of Cervical Spine COMPARISON: None. IMPRESSION: Vertebral body heights are maintained. Multilevel loss of disc height inthe inferior cervical spine, mild. No prevertebral edema. Noanterolisthesis or retrolisthesis. Lung apices are unremarkable. us Prosper Frias MD GENERAL IMAGING Final Result * (ABNORMAL) XR DXA BONE DENSITY 2 SITES AXIAL (09/28/2024 1:31 PM CDT) Anatomical Region Laterality Modality Spine, HIPS, HIPL, HIPR Other Impressions 09/29/2024 1:51 PM CDT Osteopenia. RECOMMENDATIONS: The National Osteoporosis Foundation recommends pharmacologic treatment for patients with T-scores of -2.5 or less, patients with prior history of fragility fractures, or patients with 10-year probability of greater than 3% at hips or greater than 20% of suffering major osteoporotic fractures. Recommend continued optimization of calcium and vitamin D intake through dietary means and/or supplementation and regular exercise. Consider pharmacologic therapy for osteopenia with increased fracture risk. Follow-up bone density reading in 2 years if therapy initiated to assess therapeutic efficacy. Teresa Murrieta PA-C [facility] 09/29/2024 Narrative 09/29/2024 1:51 PM CDT For Patients: Results are automatically released to your [facility] account once available, in compliance with federal regulations. This means that you may see your results before your provider has had a chance to review them. Please allow 2-3 business days for your provider to comment on the results. XR DXA Bone Mineral Density (BMD) EXAM LOCATION: [facility] [address] [facility] [address] PATIENT NAME: Kavya Clarke DATE OF : 1950 EXAM DATE: 09/28/2024 REQUESTING PROVIDER: Iris Brantley DO GENDER AT : female HEIGHT: 5' 5.04 (09/25/2024) WEIGHT: 210 lb 3.2 oz (09/25/2024) MENOPAUSAL STATUS: Postmenopausal RACE/ETHNICITY: White RISK FACTORS: Diabetes Type 1 and White Race CURRENT MEDICATION FOR BONE LOSS: NONE INDICATION: Follow-up of existing osteopenia COMPARISON DATE(S): 2019 DXA scans are compared to prior studies for a patient only when the two (or more) studies were performed on the same scanner. It is not possible to compare data generated on one scanner to data from another because there are not standards in DXA equipment. This applies even if the two scanners are made by the same nc machinist. PROCEDURE: Dual-energy x-ray absorptiometry performed with routine technique. Reporting is completed in the form of a T-score. The T-score represents the standard deviation from peak bone mass based on young healthy adult. A Z-score is used for diagnosis in premenopausal women, and for men under the age of 50. FINDINGS: RESULT LUMBAR SPINE L1 - L4 BMD: 1.201 g/cm2 T-Score: + 0.1 Z-Score: + 0.8 Change from prior: None RESULTS FEMUR Left femoral neck BMD: 0.705 g/cm2 T-Score: - 2.4 Z-Score: - 1.2 Change from prior in 2020: Decrease 9.6%. Right femoral neck BMD: 0.728 g/cm2 T-Score: - 2.2 Z-Score: - 1.0 Change from prior in 2020: Decrease 2.4%. Left hip BMD: 0.860 g/cm2 T-Score: - 1.2 Z-Score: - 0.3 Change from prior in 2020: Decrease 3.3%. Right hip BMD: 0.888 g/cm2 T-Score: - 1.0 Z-Score: + 0.0 Change from prior in 2020: 0.0. WHO criteria: Normal: T-score at or above -1 SD Osteopenia: T-score between -1.1 and -2.4 SD Osteoporosis: T-score at or below -2.5 SD FRAX RISK CALCULATION (USED FOR OSTEOPENIA ONLY): 10-year probability of major osteoporotic fracture: 14.3%. 10-year probability of hip fracture: 3.8%. Iris Brantley DO DEXA Final Resu lt * LDL CHOLESTEROL,DIRECT (09/25/2024 3:40 PM CDT) [facility] Signature DIRECT LDL 74 <100 mg/dL [facility] Comment: Desirable range <100 mg/dL for primary prevention; <70 mg/dL for patients with CHD or diabetic patients with > or = 2 CHD risk factors. Blood BLOOD SPECIMEN / Unknown 09/25/2024 3:40 PM CDT 09/25/2024 3:41 PM CDT Iris Munizzuly CHEMISTRY Final Resu lt Performing Organization Address City/[facility]/ZIP Co de Phone Number [facility] [place] [address] [place] [address], [facility] [address] [place] [address] * (ABNORMAL) URINE ALBUMIN TO CREATININE RATIO, RANDOM (09/25/2024 3:39 PM CDT) ALB RAND URINE 27.5 mg/L 09/25/2024 11:54 PM CDT [facility] CREATININE,URIN E 0.74 g/L 09/25/2024 11:54 PM CDT [facility] ALBUMIN TO CREATININE RATIO,RAND UR 37.2(H) <30.0 mg/g creat 09/25/2024 11:54 PM CDT [facility] Urine URINE SPECIMEN / Unknown Non-Blood / Unknown 09/25/2024 3:39 PM CDT 09/25/2024 3:39 PM CDT Narrative [facility] - 09/25/2024 11:54 PM CDT If Albumin to Creatinine Ratio is elevated, consider the following: Elevations seen with incipient nephropathy associated with diabetes mellitus or hypertension. Stress, exercise,hematuria, and urinary tract infection may also produce elevated results. If clinically indicated, confirm with 24 Hour Albumin to Creatinine Ratio. Iris Bertha Brantley DO URINE Final Resu lt Performing Organization Address City/[facility]/ZIP Co de Phone Number [facility] [address] [place] [address], [place] * SCAN-MRI INTERPRETATION (09/24/2024 12:00 AM CDT) Anatomical Region Laterality Modality Other us Scanner OTHER Final Result * (ABNORMAL) HEMOGLOBIN A1C (09/02/2024 9:40 AM CDT) HEMOGLOBIN A1C 6.5(H) <5.7 % [facility] Comment: For someone without known diabetes, a hemoglobin A1c value of 6.5% or greater indicates that they may have diabetes and this should be confirmed with a follow-up test. For someone with known diabetes, a value <7% indicates that their diabetes is well controlled and a value greater than or equal to 7% indicates suboptimal control. A1c targets should be individualized based on duration of diabetes, age, comorbid conditions, and other considerations. Currently, no consensus exists regarding use of hemoglobin A1c for diagnosis of diabetes for children. Blood BLOOD SPECIMEN / Unknown 09/02/2024 9:40 AM CDT 09/02/2024 9:40 AM CDT Melissa ALBRECHT CHEMISTRY Final Re sult [employer] [facility] [address] [place] [address], [facility] [address] * VITAMIN D 25 (DEFICIENCY) (09/02/2024 9:40 AM CDT) VITAMIN D,25-OH,TOTAL,IA 50 30 - 100 ng/mL [facility] Comment: Vitamin D Status 25-OH Vitamin D: Deficiency: <20 ng/mL Insufficiency: 20 - 29 ng/mL Optimal: > or = 30 ng/mL For 25-OH Vitamin D testing on patients on D2-supplementation and patients for whom quantitation of D2 and D3 fractions is required, the [facility]() 25-OH VIT D, (D2,D3), LC/MS/MS is recommended: order code 80829 (patients >2yrs). See Note 1 Note 1 For additional information, please refer to http://education.Buzzient.[facility]/faq/YEY015 (This link is being provided for informational/ educational purposes only.) Blood BLOOD SPECIMEN / Unknown 09/02/2024 9:40 AM CDT 09/02/2024 9:40 AM CDT Melissa ALBRECHT SEND OUTS Final Re sult Performing Organization Address [facility]/ZIP Co de Phone Number [facility] [address] [place] [address], [facility] [address] [place] [address] * INSULIN (09/02/2024 9:40 AM CDT) INSULIN 13.8 uIU/mL [facility] Comment: Reference Range < or = 18.4 Risk: Optimal < or = 18.4 Moderate NA High >18.4 Adult cardiovascular event risk category cut points (optimal, moderate, high) are based on Insulin Reference Interval studies performed at [facility] in 2021. Blood BLOOD SPECIMEN / Unknown 09/02/2024 9:40 AM CDT 09/02/2024 9:40 AM CDT Melissa ALBRECHT SEND OUTS Final Re sult Performing Organization Address [facility] de Phone Number [facility] [address] [place] [address], [facility] [address] [place] [address] * VITAMIN B12 (09/02/2024 9:40 AM CDT) VITAMIN B12 484 200 - 1,100 pg/mL [facility] Blood BLOOD SPECIMEN / Unknown 09/02/2024 9:40 AM CDT 09/02/2024 9:40 AM CDT Melissa ALBRECHT CHEMISTRY Final Re sult Performing Organization Address [facility]/ZIP Co de Phone Number [facility] [address] [place] [address], [facility] [address] [place] [address] * (ABNORMAL) COMP METABOLIC PANEL (09/02/2024 9:40 AM CDT) GLUCOSE 103(H) 65 - 99 mg/dL [facility] Comment: Fasting reference interval For someone without known diabetes, a glucose value between 100 and 125 mg/dL is consistent with prediabetes and should be confirmed with a follow-up test. UREA NITROGEN (BUN) 14 7 - 25 mg/dL [facility] CREATININE 0.68 0.60 - 1.00 mg/dL [facility] EGFR 92 > OR = 60 mL/min/1. 73m2 [facility] BUN/CREATININE RATIO SEE NOTE: 6 - 22 (calc) [facility] Comment: Not Reported: BUN and Creatinine are within reference range. SODIUM 141 135 - 146 mmol/L [facility] POTASSIUM 3.8 3.5 - 5.3 mmol/L [facility] CHLORIDE 109 98 - 110 mmol/L [facility] CARBON DIOXIDE 22 20 - 32 mmol/L [facility] CALCIUM 9.2 8.6 - 10.4 mg/dL [facility] PROTEIN, TOTAL 6.8 6.1 - 8.1 g/dL [facility] ALBUMIN 4.4 3.6 - 5.1 g/dL [facility] GLOBULIN 2.4 1.9 - 3.7 g/dL (calc) [facility] ALBUMIN/GLOBULIN RATIO 1.8 1.0 - 2.5 (calc) [facility] BILIRUBIN, TOTAL 1.1 0.2 - 1.2 mg/dL [facility] ALKALINE PHOSPHATASE 57 37 - 153 U/L [facility] AST 22 10 - 35 U/L [facility] ALT 19 6 - 29 U/L [facility] Blood BLOOD SPECIMEN / Unknown 09/02/2024 9:40 AM CDT 09/02/2024 9:40 AM CDT Melissa ALBRECHT CHEMISTRY Final Re sult [facility] [place] [facility] [address] [place] [address], [facility] [address] [place] [address] * XR MAMMO LA BILAT SCREEN (01/08/2024 8:14 AM PLUSH FINISHER) Anatomical Region Laterality Modality BREASTS, Breast Left, Breast Right Bilateral Mammography Impressions 01/09/2024 2:17 PM PLUSH FINISHER There is no radiographic evidence for malignancy. Recommend annual mammograms. MAMMOGRAM ASSESSMENT: ACR 1 Negative PATIENTS: You will also receive a letter with your examination results in an easy to read format. If you have questions about your results, please contact your referring provider. Narrative 01/09/2024 2:17 PM PLUSH FINISHER For Patients: As a result of the Century Cures Act, medical imaging exams and procedure reports are released immediately into your electronic medical record. You may view this report before your referring provider. If you have questions, please contact your health care provider. XR MAMMO LA BILAT SCREEN [[id number]] CLINICAL HISTORY: This is an asymptomatic 73 y.o. patient. INDICATION FOR EXAM: Mammogram Screening. TECHNIQUE: CC & MLO views were obtained. This study was evaluated with the assistance of Computer-Aided Detection. Breast Tomosynthesis was used in interpretation. COMPARISON FILM: Yes 12/25/22 [facility] 10/30/21 [facility] FINDINGS: There are scattered areas of fibroglandular density. There are no dominant masses, suspicious micro calcifications or areas of architectural distortion. Iris Brantley DO MAMMO Final Resu lt * ANTI HCV (03/08/2023 8:49 AM PLUSH FINISHER) HEPATITIS C ANTIBODY Non-Reacti ve Non-React peter 03/08/2023 5:51 PM PLUSH FINISHER [facility] Comment:Please note, per www .CDC.gov: If a patient is known to be at high risk of HCV infection, or is symptomatic, and the physician's suspicion of HCV infection is high, HCV RNA testing is often employed and is of diagnostic value, even after an initial negative anti-HCV test result. Blood BLOOD SPECIMEN / Unknown Venipuncture / Unknown 03/08/2023 8:49 AM PLUSH FINISHER 03/08/2023 8:54 AM PLUSH FINISHER us Iris Brantley DO SEND OUTS Final Resu lt [facility] [address] [place] [address], [place] from Last 3 Months or Most Recently Relevant to Health Maintenance Insurance [facility] MEDICARE ADVANTAGE MR MEDICARE PART A HB ONLY Advance Directives Documents on File Type Date Recorded Patient Supervisor Anodizing Expl anation Healthcare Directive 02/12/2023 10:04 AM HEALTH CARE DIRECTIVE [facility] -06/06/2019 * Full Code (Latest Code Status on File) Date Activated Date Inactivated Comments 11/06/2024 3:09 PM 11/07/2024 5:07 PM Question Answer Comments Code Status Discussion: Other * Full Code Date Activated Date Inactivated Comments 11/06/2024 5:52 AM 11/06/2024 1:58 PM Question Answer Comments Code Status Discussion: Unable to Assess Preferences, Provider to review later * Full Code Date Activated Date Inactivated Comments 12/02/2019 7:11 AM 12/02/2019 11:18 AM Question Answer Comments Code Status Discussion: Not Discussed Care Teams Yarn Tester Relationship Specialty Start Date End Date Iris Brantley DO [address] [place] [address] PCP - General Family Practice 02/23/21 Melissa Allen PA [address] [place] [address] Physician Contractor Buyer 06/04/[address] [place] [address] Calender Worker Helper 09/04/24 Bridget Hair, RN [address] [place] [address] Economic Research Analyst 10/13/24 aLna Magdaleno [address] [place] [address] Complex Care Management Care Guide 11/13/24
[2024-11-16 23:38] VITALS: BP 153/91; PULSE 68; RESP 22; TEMP 36.8; O2SAT 95; BMI 34.9
--- NOTE | 2024-11-17 00:15 | CRLHL7_ITS ---
For Patients: As a result of the Cures Act, medical imaging exams and procedure reports are released immediately into your electronic medical record. You may view this report before your referring provider. If you have questions, please contact your health care provider. INDICATION: Rib pain with bending. TECHNIQUE: PA chest and left rib series 4 views. COMPARISON: 04/23/2024. FINDINGS: Cardiovascular and mediastinum: Heart size and vasculature are normal in caliber and appearance. Lungs and pleural spaces: Unchanged increased reticular lung markings within the right lung. No pleural effusion or pneumothorax. Unchanged nodular pleural thickening of right lower. Bones and soft tissues: Cervical fusion hardware. No definite displaced rib fracture. IMPRESSION: 1. No definite displaced rib fracture. No evidence of an acute pulmonary process. 2. Unchanged increased reticular lung markings in the right lung with nodular pleural thickening. Malignancy/metastatic disease cannot be excluded. Consider PET-CT for further evaluation, if not previously performed. Dictated by Max Guerrier MD @ 11/17/2024 1:03:23 AM (Electronically Signed)
--- NOTE | 2024-11-17 00:16 | ED.GENADULT ---
HPI - General Adult General Chief complaint: Flank Pain Stated complaint: left side pain Time Seen by Provider: 11/17/24 00:03 Source: patient and family Mode of arrival: ambulatory Limitations: no limitations History of Present Illness HPI narrative: 74-year-old male presents to the emergency department 6 hours after she started having pain in the left rib area. Stable pain. No shortness of breath, hemoptysis or significant impairment of ADLs. Reports that the area is painful, no difficult to sleep, presents to the ED late at night. Pain started when she was bending over. No major injury or trauma. Tried taking Tylenol 1000 mg about 2 hours after the strain and then tried taking 5 mg of oxycodone a couple of hours after that with no significant improvement. No cardiac symptoms, no GI changes. She is status post cervical fusion a couple of weeks ago at [facility]. Reports that she was told not to use NSAIDs for the next 6 months. No radiculopathy. No rashes noted. Does have a remote history of a spontaneous pneumothorax, denies that this feels similar. No fever recent illness. Surgical recovery otherwise going well. Reports her past medical history is notable for diet-controlled diabetes, hypertension, depression, restless leg syndrome. Medications not accurate as listed per patient. Does provide me a list. Notable for gabapentin, oxybutynin, losartan. Nonsmoker. ROS is notable for the left lateral rib area pain, otherwise denies times 12 systems Related Data Home Medications ?Medication ?Instructions ?Recorded ?Confirmed oxybutynin chloride 10 mg 20 mg PO DAILY 09/14/21 09/29/24 tablet,extended release 24 hr paroxetine HCl 20 mg tablet 20 mg PO DAILY 09/14/21 09/29/24 propranolol 10 mg tablet 10 mg PO DAILY PRN 09/14/21 09/29/24 trazodone 50 mg tablet 50 - 100 mg PO HS PRN 09/14/21 09/29/24 rosuvastatin 20 mg tablet 20 mg PO QPM 07/21/22 09/29/24 acetaminophen 500 mg tablet 500 mg PO Q6H PRN 03/15/23 09/29/24 (Tylenol Extra Strength) bupropion HCl 150 mg 24 hr tablet, 150 mg PO DAILY 03/15/23 09/29/24 extended release gabapentin 300 mg capsule 900 mg PO HS 05/21/23 09/29/24 pramipexole 0.5 mg tablet mg PO 09/11/24 09/29/24 semaglutide (weight loss) 0.25 mg subcut 09/11/24 09/29/24 mg/0.5 mL subcutaneous pen injector (Wegovy) losartan 50 mg tablet 50 mg PO DAILY 09/29/24 09/29/24 Previous Rx's ?Medication ?Instructions ?Recorded cyclobenzaprine 10 mg tablet 10 mg PO TID PRN muscle spasm #30 05/21/23 tabs hydroxyzine pamoate 25 mg capsule 25 mg PO Q6H PRN pain #30 caps 05/21/23 (Vistaril) methylprednisolone 4 mg tablets in 4 mg PO PER PKG DIR neck pain, 09/22/24 a dose pack (Medrol (Jose)) radiculopathy #21 ea cyclobenzaprine 10 mg tablet 5 - 10 mg (0.5 - 1 x 10 mg) PO HS 11/17/24 PRN muscle spasm #10 tabs oxycodone 5 mg tablet 5 mg PO Q6H PRN pain #10 tabs 11/17/24 Allergies Allergy/AdvReac Type Severity Reaction Status Date / Time No Known Allergies Allergy Verified 11/16/24 23:42 [facility] Medical History Restless leg syndrome ?G25.81 - Restless legs syndrome (ICD-10) Performance anxiety (02/16/11) ?F41.8 - Other specified anxiety disorders (ICD-10) Depression, recurrent (10/17/21) ?F33.9 - Major depressive disorder, recurrent, unspecified (ICD-10) Ascending aortic aneurysm (09/27/21) ?I71.21 - Aneurysm of the ascending aorta, without rupture (ICD-10) Pulmonary embolus, left ?I26.99 - Other pulmonary embolism without acute cor pulmonale (ICD-10) NSTEMI (non-ST elevated myocardial infarction) ?I21.4 - Non-ST elevation (NSTEMI) myocardial infarction (ICD-10) Pleural nodules ?R22.2 - Localized swelling, mass and lump, trunk (ICD-10) Urinary urgency ?R39.15 - Urgency of urination (ICD-10) Elevated troponin ?R77.8 - Other specified abnormalities of plasma proteins (ICD-10) Spontaneous pneumothorax ?J93.83 - Other pneumothorax (ICD-10) Anxiety ?F41.9 - Anxiety disorder, unspecified (ICD-10) Surgical History History of arthroscopy of right shoulder (04/10/23) ?Z98.890 - Other specified postprocedural states (ICD-10) Collapse of lung ?J98.19 - Other pulmonary collapse (ICD-10) History of cataract surgery ?Z98.49 - Cataract extraction status, unspecified eye (ICD-10) History of tonsillectomy ?Z90.89 - Acquired absence of other organs (ICD-10) Family History Mother Frontotemporal dementia Father Dementia of the Alzheimer's type Brother Coronary artery disease Social History Highest level of school completed/degree received: Master's degree Smoking Status: Never smoker Do you use any of these nicotine containing products: None Second hand tobacco smoke exposure: No How often do you have a drink containing alcohol: never How often do you have six or more drinks on one occasion: Never AUDIT-C Alcohol total score: 0 Non-prescribed substance use: denies use Caffeine: Yes (diet coke) Are you using contraception or practicing any form of control: No service: No Exam Const: Vital Signs, click to edit/add: Vital Signs - 24 hr 11/16/24 23:38 11/17/24 01:31 Temperature 98.2 F Pulse Rate [Pulse Oximeter] 68 Respiratory Rate 22 Blood Pressure [Ri ght Upper Arm] 153/91 H Pulse Oximetry 95 97 Oxygen Delivery Me thod Room Air Documenting provider has reviewed patient's vital signs: yes Common normals: no apparent distress General appearance: cooperative and well kempt HENMT: Common normals: normocephalic Head and scalp: normocephalic Face and sinus: normal facial exam Eye: Common normals: conjunctivae normal General eye: normal appearance of both eyes Conjunctiva: conjunctiva(e) normal Neck & C-Spine: Other: Soft cervical collar in place, while lying down, is not supporting any structures as it is currently placed. Chest: Common normals: inspection of chest normal Other: Palpation of the left lateral chest in the area described does reproduce pain. But there is no deformity, bruising or skin change. Resp: Common normals: normal respiratory effort, no retractions, no use of accessory muscles and clear to auscultation bilaterally Effort & inspection: able to speak in complete sentences Auscultation: clear to auscultation bilaterally Cardio: Common normals: regular rate, regular rhythm, S1 normal heart sound, S2 normal heart sound and no murmurs Rate: regular rate Rhythm: regular rhythm Heart sounds: S1 normal and S2 normal Back & Pelvis: Common normals: thoracic and lumbar spine normal to inspection and no thoracic nor lumbar tenderness Psych: Appearance: well kempt Attitude: engaged Activity/motor behavior: appropriate eye contact Insight: insight good Judgement: judgment good Skin: Common normals: no rashes or lesions noted General skin exam: no rashes or lesions noted Course Course ED Course: 74-year-old female with left lateral rib pain, secondary to minor trauma. Exam is not suspicious for underlying pneumothorax, muscular tear, rib fracture, thoracic spine tear, intrathoracic pathology like infection, rupture blood, vascular injury or cardiac process. On these diagnoses and others considered. Suspect strained muscles. Will give Flexeril 10 mg p.o. x1 and 5 mg of oxycodone while we obtain rib x-rays to rule out more serious pathology. Vitals noted to be normal with no signs of hypoxia, tachypnea, fever or other significant abnormality. Await findings and clinical response. Reevaluation(s) Time of Reevaluation #1: 01:44 Reevaluation #1: Patient noting some improvement with medications given. Counseled on x-ray findings, all reassuring. Discussed management plan for pain control. Encourage frequent ambulation, deep breaths to reduce complications. Heat, topical NSAIDs rather than systemic advised. Tylenol 1000 mg every 6 hours. Prescriptions given for Flexeril 5-10 mg at bedtime an oxycodone 5 mg q.6 p.r.n. 10. Of each dispensed. Alarm symptoms reviewed that would warrant 80 presentation. Counseled to follow-up with primary care in 7 days if not improving for physical therapy referral. Vital Signs Vital signs: Initial Vital Signs Temperature 98.2 F 11/16/24 23:38 Temperature Source Temporal Artery Scan 11/16/24 23:38 Pulse Rate 68 11/16/24 23:38 Pulse Rhythm Regular 11/16/24 23:38 Respiratory Rate 22 11/16/24 23:38 Blood Pressure 153/91 H 11/16/24 23:38 Blood Pressure Mean 111 H 11/16/24 23:38 Blood Pressure Position Sitting 11/16/24 23:38 Pulse Oximetry 95 11/16/24 23:38 Oxygen Delivery Method Room Air 11/16/24 23:38 Vital Signs Temperature 98.2 F 11/16/24 23:38 Pulse Rate 68 11/16/24 23:38 Respiratory Rate 22 11/16/24 23:38 Blood Pressure 153/91 H 11/16/24 23:38 Pulse Oximetry 95 11/16/24 23:38 Oxygen Delivery Method Room Air 11/16/24 23:38 Temperature 98.2 F 11/16/24 23:38 Pulse Rate 68 11/16/24 23:38 Respiratory Rate 22 11/16/24 23:38 Blood Pressure 153/91 H 11/16/24 23:38 Pulse Oximetry 97 11/17/24 01:31 Oxygen Delivery Method Room Air 11/16/24 23:38 Medications Administered Medications: Discontinued Medications Generic Name Dose Route Start Last Admin Trade Name Freq PRN Reason Stop Dose Admin Cyclobenzaprine HCl 10 mg 11/17/24 00:15 11/17/24 01:06 Cyclobenzaprine Hcl 10 Mg Tablet PO 11/17/24 00:16 10 mg ONCE ONE Administration Oxycodone HCl 5 mg 11/17/24 00:15 11/17/24 01:06 Oxycodone 5 Mg Tablet PO 11/17/24 00:16 5 mg ONCE ONE Administration Medical Decision Making Imaging Data Chest x-ray: Attestation: I have reviewed the pertinent imaging results. My impression: Normal chest and rib x-ray. No fractures, pneumothorax, infiltrates or other abnormality Radiologist's impression: IMPRESSION: 1. No definite displaced rib fracture. No evidence of an acute pulmonary process. 2. Unchanged increased reticular lung markings in the right lung with nodular pleural thickening. Malignancy/metastatic disease cannot be excluded. Consider PET-CT for further evaluation, if not previously performed. Dictated by Max Guerrier MD @ 11/17/2024 1:03:23 AM Discharge Plan Discharge Clinical Impression: Rib sprain Patient Disposition: Home w/ Parent or Adult Condition: Stable Instructions: Rib Contusion (ED) Additional Instructions: As we discussed, the x-ray looks good. No signs of pneumothorax, pneumonia, rib fracture, etc.. This is most likely a pulled muscle and should start to improve within the next 5-10 days. Remember to keep moving frequently, taking deep breath several times every hour to reduce your chance of secondary pneumonias or long-term complications. For pain, I recommend Tylenol 1000 mg every 6 hours. You are eligible for another dose of this right away. I will also give a prescription for a few more oxycodone tablets using up to 1 every 4 hours. Remember to increase your senna to help match appropriately for bowel movements. I will also give a prescription for Flexeril which is a muscle relaxant to use at bedtime if needed. I recommended only for bedtime as it can be sedating. Consider using just a half a tablet if a full pill seems too strong for you. If symptoms are still very bothersome in a week, please make a follow-up appointment with her primary care provider to discuss physical therapy and other long-term treatments. You may benefit from topical NSAIDs like the Salonpas patch, this would not interfere with her surgery. You may also use muscle rubs like Mentholatum and heat to help with symptoms as well. Activity Level: Activity as Tolerated Discharge Diet: Regular Prescriptions: New cyclobenzaprine 10 mg tablet 5 - 10 mg PO HS PRN (Reason: muscle spasm) Qty: 10 0RF oxycodone 5 mg tablet 5 mg PO Q6H PRN (Reason: pain) Qty: 10 0RF No Action acetaminophen [Tylenol Extra Strength] 500 mg tablet 500 mg PO Q6H PRN bupropion HCl 150 mg tablet extended release 24 hr 150 mg PO DAILY gabapentin 300 mg capsule 900 mg PO HS cyclobenzaprine 10 mg tablet 10 mg PO TID PRN (Reason: muscle spasm) Qty: 30 3RF hydroxyzine pamoate [Vistaril] 25 mg capsule 25 mg PO Q6H PRN (Reason: pain) Qty: 30 3RF pramipexole 0.5 mg tablet PO Wegovy 0.25 mg/0.5 mL pen injector subcut Patient Comments: [NO ORIGINAL SIG] losartan 50 mg tablet 50 mg PO DAILY trazodone 50 mg tablet 50 - 100 mg PO HS PRN oxybutynin chloride 10 mg tablet extended release 24 hr 20 mg PO DAILY propranolol 10 mg tablet 10 mg PO DAILY PRN Patient Comments: TAKE 1-2 TABLETS BY MOUTH DAILY NEEDED FOR PERFORMANCE ANXIETY paroxetine HCl 20 mg tablet 20 mg PO DAILY rosuvastatin 20 mg tablet 20 mg PO QPM methylprednisolone [Medrol (Jose)] 4 mg tablets,dose pack 4 mg PO PER PKG DIR Qty: 21 0RF Rx Instructions: avoid NSAIDs while taking this medication Follow Up/Referrals: Iris Brantley DO [Primary Care Provider, Family Practice] Stand Alone Forms: MyHealth Info Instructions
[2024-11-17] MEDS: CYCLOBENZAPRINE HCL 10 MG TABLET PO (01:06)
[2024-11-17 01:31] VITALS: O2SAT 97
--- OUTSIDE RECORDS SUMMARY | 2024-11-17 01:32 | XMS_ITS | Clinical Summary ---
Author Organization [facility] Address [facility] [place] [address] Care Team Providers Care Disbursing Agent Name Role Phone Iris Brantley DO Primary Care Provider [phone] Melissa Allen Unavailable Dionna Atwood RD Unavailable Bridget Hair RN Unavailable Lana Magdaleno Unavailable Allergies No known active [...] type, unspecified whether angina present, unspecified whether chilkat or transplanted heart Take 1 Tablet (81 [...] 2. Total coronary artery calcium score 65. ESCOBEOD percentile based on age, gender, and race [...] Description 11/12/2024 2:00 PM CDT Ancillary Procedure [facility] [address] [place] [address] Arrived 11/12/2024 1:05 PM CDT Office Visit [facility] [address] [place] [address] Iris Brantley, Hospital F/U 11/12/2024 Travel 11/09/2024 Patient Outreach [facility] [address] [facility] [address] Dania Thayer, ANA Primary RN Care Management; Hospital F/U (Lace=50) 11/06/2024 7:32 AM CDT Anesthesia Event [facility] [address], [place] [address] Edu Mccoy MD Radcliffe, Katherine A, CRNA Student 11/06/2024 7:00 AM CDT - 11/06/2024 12:44 PM CDT Surgery [facility] [address], [place] [address] Prosper Frias MD ACDF - Anterior Cervical Decompression Fusion Levels: C5 to: T1 11/06/2024 5:16 AM CDT - 11/07/2024 2:55 PM CDT Hospital Encounter [facility] [address] [place] [address] Prosper Frias MD Cervical spinal stenosis (Primary Dx); Spinal stenosis of lumbosacral region; Overactive bladder; Coronary artery disease, unspecified vessel or lesion type, unspecified whether angina present, unspecified whether chilkat or transplanted heart Discharge Disposition: Home Self Care 11/05/2024 Travel 10/28/2024 9:30 AM CDT Orders Only [facility] [address] [facility] [address] Lab, [place] [facility] 10/28/2024 Travel 10/27/2024 Refill [facility] [address] [facility] [place] [address] Iris Brantley DO Refill Request (Oxybutynin Xl) 10/26/2024 Orders Only [facility] [address] [facility] [address] Iris Brantley DO 1 scan: (1-Ord) CHANTAL-EKG-9.4.25 10/23/2024 Travel 10/22/2024 1:30 PM CDT Office Visit [facility] [address] [facility] [place] [address] Iris Brantley DO Preoperative Exam (DOS: 11/06/2024, ACDF - Anterior Cervical Decompression Fusion Levels: C5 to: T1, Dr. Frias, [place]); Follow Up (Blood pressure and medication changes) 10/22/2024 Travel 10/20/2024 Orders Only [facility] Scanner 1 scan: (1-Ord) [facility], 10/20/2024 10/13/2024 2:00 PM CDT Patient Outreach [address] [address] Bridget Hair RN Diabetes (Assessment/new diagnosis) 10/13/2024 Travel 10/07/2024 8:55 AM CDT Ancillary Procedure [facility] [address] [facility] [address] [place] [address] 10/07/2024 Travel 10/06/2024 11:30 AM CDT Telemedicine [address] [address] Melissa Allen PA Telehealth (No vitals taken); Weight (MWL follow up) 10/05/2024 2:40 PM CDT Nurse/Clinic Staff Only [facility] [address] [place] [address] Blood Pressure; Education (Accucheck) 10/05/2024 Travel 10/01/2024 11:00 AM CDT Nutrition/Integration Assistant [address] [address] 10/01/2024 Travel 09/30/2024 Orders Only [facility] [address] [facility] [address] [place] [address] Prosper Frias MD <No scans attached> 09/30/2024 Travel 09/28/2024 1:00 PM CDT Ancillary Procedure [facility] [address] [place] [address] 09/28/2024 Telephone [facility] [address] [place] [address] Iris Brantley, Form 09/27/2024 Travel 09/26/2024 Orders Only [facility] [address] [place] [address] Iris Brantley DO <No scans attached> 09/25/2024 2:20 PM CDT Office Visit [facility] [address] [place] [address] Iris Brantley DO Medicare ANNUAL (subsequent) Visit (74 year old ) 09/24/2024 Orders Only [facility] Scanner 1 scan: (1-Ord) MARI, MR CERVICAL SPINE WO CON, 09/24/2024 09/24/2024 Travel 09/02/2024 9:45 AM CDT Orders [place] [facility] [address] [place] [address] Lab, [facility] 09/02/2024 Travel 08/25/2024 Refill [facility] [address] [place] [address] Iris Brantley DO Refill Request (Oxybutynin Xl) 08/20/[address] [address] Melissa Allen PA Med Change Request 08/19/[address] [address] Melissa Allen PA Medication Management (/topiramate 25 [...] on file Legal Sex Female 6:15 AM GRAPHIC DESIGN INTERN Gender Identity Not on file Sexual Orientation [...] Contact Info) Description 12/03/2024 11:00 AM CDT Nutrition/Integration Assistant [facility] [address] [place] [address] Dionna Atwood, [place] [address] [place] [address] 12/16/2024 9:30 AM CDT Office Visit [facility] [address] [facility] [address] [place] [phone] Danny Martinez MD [address] [facility] [address] [place] [address] 12/28/2024 8:20 AM GRAPHIC DESIGN INTERN Office Visit [facility] [address] [place] [address] Iris Brantley DO [address] [place] [address] 02/16/2025 10:00 AM GRAPHIC DESIGN INTERN Telemedicine [facility] [address] [place] [address] Melissa Allen PA [address] [place] [address] Health Maintenance Due Date Last Done Comments [...] Completed 09/28/2024, Medical Devices Implanted Type Area Region Manager Device Identifier Shelf Expiration Date Model / Serial / Lot Bone [id number] Cornerstone Lasr Spacer - [id number] Implanted:Qty: 1 on 11/06/2024 by Prosper Frias MD at [facility] N/A: Spine Medtronic Spine/Ortho [id number] 09/19/2026 [id number] / [id number] / [id number] Bone [id number] Cornerstone Lasr Spacer - [id number] Implanted:Qty: 1 on 11/06/2024 by Prosper Frias MD at [facility] N/A: Spine Medtronic Spine/Ortho [id number] 07/10/2026 [id number] / [id number] / [id number] Bone [id number] Cornerstone Lasr Spacer - [id number] Implanted:Qty: 1 on 11/06/2024 by Prosper Frias MD at [facility] N/A: Spine Medtronic Spine/Ortho [id number] 09/18/2026 [id number] / [id number] / [id number] Plate Spinal 1.9x51mm 3 Lvl Zevo - [id number] Implanted:Qty: 1 on 11/06/2024 by Prosper Frias MD at [facility] N/A: Spine Medtronic Spine/Ortho [id number] / / Screw Cerv Ant 3.5x15mm Zevo Slf Drilling - [id number] Implanted:Qty: 8 on 11/06/2024 by Prosper Frias MD at [facility] N/A: Spine Medtronic Spine/Ortho [id number] / / Putty Easypack 1.5cc Magnetos - [id number] Implanted:Qty: 1 on 11/06/2024 by Prosper Frias MD at [facility] N/A: Spine medidametrics AG 04/18/2029 [id number] / / [id number] Procedures [...] Cervical M54.12 Case Notes IOM C_ArmInsert Ledesma Emtypqsd8169/ether screenGardner Wells tongsAutograft Cortical/CancellousZevo bone, peek MR GLUCOSE METER Timed 11/06/2024 6:13 AM CDT SCAN-CARDIAC STRIP 11/06/2024 12:00 AM CDT IRON PLUS IRON BINDING CAP Routine 10/28/2024 9:36 AM CDT Restless leg syndrome Iron deficiency FERRITIN Routine 10/28/2024 9:36 AM CDT Restless leg syndrome Iron deficiency EKG 12 LEAD Routine 10/26/2024 3:35 PM CDT Pre-op exam NSTEMI (non-ST elevation myocardial infarction) (HC) SD READING EKG - NO CHARGE, COMP ONLY [...] LA BILAT SCREEN Routine 01/08/2024 8:14 AM GRAPHIC DESIGN INTERN Visit for screening mammogram ANTI HCV Routine 03/08/2023 8:49 AM GRAPHIC DESIGN INTERN Tingling of both feet from Last 3 [...] - 100 mg/dL 11/07/2024 11:12 AM CDT [facility] Blood BLOOD SPECIMEN / Unknown 11/07/2024 11:06 AM CDT 11/07/2024 11:12 AM CDT Prosper Frias MD CHEMISTRY Final Result Performing Organization Address [facility]/ZIP Co de Phone Number [facility] [address] [place] [address], [place] * Hemoglobin AM (11/07/2024 6:43 AM CDT) Only the most recent of3 resultswithin the time period is included. Pathologist [facility] HEMOGLOBIN 12.5 12.0 - 16.0 g/dL 11/07/2024 7:11 AM CDT [facility] MCV 90 80 - 100 fL 11/07/2024 7:11 AM CDT [facility] Blood BLOOD SPECIMEN / Unknown Venipuncture / Unknown 11/07/2024 6:43 AM CDT 11/07/2024 7:00 AM CDT Garcia MORIN HEMATOLOGY Whitney l Result Performing Organization Address City/[facility] Co de Phone Number [facility] [address] [place] [address], [place] * (ABNORMAL) Creatinine AM (11/07/2024 6:43 AM CDT) Pathologist [facility] eGFR >90 >90 mL/min/1.7 3m2 11/07/2024 7:49 AM CDT [facility] Comment:As of 2021, eG FR [...] CDT Garcia MORIN CHEMISTRY Whitney l Result [facility] [address] [place] [address], * XR C-ARM EQUAL OR GREATER 3 [...] ultrasound used. Securement/dressing: dressing applied. Comment: Vessel Brass Chaser Additional supplies used to locate vessel: no [...] - 160 mcg/dL 10/29/2024 5:07 AM CDT [facility] IRON BINDING CAPACITY 293 250 - 450 mcg/dL (calc) 10/29/2024 5:07 AM CDT [facility] % SATURATION 29 16 - 45 % (calc) 10/29/2024 5:07 AM CDT [facility] Blood BLOOD SPECIMEN / Unknown [facility] / Unknown 10/28/2024 9:36 AM CDT 10/28/2024 9:36 AM CDT Danny Martinez MD CHEMISTRY Final Res ult [facility] [place] [place] [address], [place] [phone] * (ABNORMAL) FERRITIN (10/28/2024 9:36 AM CDT) FERRITIN 433(H) 16 - 288 ng/mL 10/29/2024 4:25 AM CDT [facility] Blood BLOOD SPECIMEN / Unknown [facility] / Unknown 10/28/2024 9:36 AM CDT 10/28/2024 9:36 AM CDT Danny Martinez MD CHEMISTRY Final Res ult [facility] [place] [place] [address], [place] [phone] * EKG 12 LEAD (10/26/2024 3:35 PM CDT) Iris Brantley DO EKG ORD Final Resu lt * SD READING EKG - NO CHARGE, COMP ONLY (10/26/2024 3:34 PM CDT) Iris Brantley DO PB - PROVIDER READINGS Fin al Result * BASIC METABOLIC PANEL (10/22/2024 2:50 PM CDT) SODIUM 141 135 - 146 mmol/L 10/23/2024 4:48 AM CDT [facility] POTASSIUM 4.0 3.5 - 5.3 mmol/L 10/23/2024 4:48 AM CDT [facility] CARBON DIOXIDE 25 20 - 32 mmol/L 10/23/2024 4:48 AM CDT [facility] GLUCOSE 94 65 - 99 mg/dL 10/23/2024 4:48 AM CDT [facility] Comment: Fasting reference interval CALCIUM 9.7 8.6 - 10.4 mg/dL 10/23/2024 4:48 AM CDT [facility] CREATININE 0.62 0.60 - 1.00 mg/dL 10/23/2024 4:48 AM CDT [facility] BUN/CREATININE RATIO SEE NOTE: 6 - 22 (calc) 10/23/2024 4:48 AM CDT [facility] Comment: Not Reported: BUN and Creatinine are within reference range. EGFR 94 > OR = 60 mL/min/1. 73m2 10/23/2024 4:48 AM CDT [facility] UREA NITROGEN (BUN) 21 7 - 25 mg/dL 10/23/2024 4:48 AM CDT [facility] ELECTROLYTE BALANCE 9 7 - 17 mmol/L (calc) 10/23/2024 4:48 AM CDT [facility] CHLORIDE 107 98 - 110 mmol/L 10/23/2024 4:48 AM CDT [facility] Blood BLOOD SPECIMEN / Unknown [facility] / Unknown 10/22/2024 2:50 PM CDT 10/22/2024 2:50 PM CDT us Iris Brantley DO CHEMISTRY Final Resu lt [facility] [address] [place] [address], * SCAN-EYE EXAM (10/20/2024 12:00 AM CDT) [...] SPINE CERVICAL 4 OR 5 VIEWS LOCATION: [facility] DATE: 10/07/2024 INDICATION: Pain Of Cervical [...] SPINE CERVICAL 4 OR 5 VIEWS LOCATION: [facility] DATE: 10/07/2024 INDICATION: Pain Of [...] to assess therapeutic efficacy. Teresa Murrieta PA-C [facility] 09/29/2024 Narrative 09/29/2024 1:51 PM CDT For Patients: Results are automatically released to your [facility] ([employer]) account once available, in compliance with federal regulations. This means that you may see your results before your provider has had a chance to review them. Please allow 2-3 business days for your provider to comment on the results. XR DXA Bone Mineral Density (BMD) EXAM LOCATION: [facility] [address] [facility] [address] PATIENT NAME: Kavya Clarke DATE OF : [...] two scanners are made by the same guncotton packer. PROCEDURE: Dual-energy x-ray absorptiometry performed with routine [...] * LDL CHOLESTEROL,DIRECT (09/25/2024 3:40 PM CDT) [facility] Signature DIRECT LDL 74 <100 mg/dL [facility] Comment: Desirable range <100 mg/dL for primary prevention; <70 mg/dL for patients with CHD or diabetic patients with > or = 2 CHD risk factors. Blood BLOOD SPECIMEN / Unknown 09/25/2024 3:40 PM CDT 09/25/2024 3:41 PM CDT Iris Munizzuly CHEMISTRY Final Resu lt Performing Organization Address City/[facility]/ZIP Co de Phone Number [facility] [place] [address] [place] [address], [facility] [address] [place] [address] * (ABNORMAL) URINE ALBUMIN TO CREATININE RATIO, RANDOM (09/25/2024 3:39 PM CDT) ALB RAND URINE 27.5 mg/L 09/25/2024 11:54 PM CDT [facility] CREATININE,URIN E 0.74 g/L 09/25/2024 11:54 PM CDT [facility] ALBUMIN TO CREATININE RATIO,RAND UR 37.2(H) <30.0 mg/g creat 09/25/2024 11:54 PM CDT [facility] Urine URINE SPECIMEN / Unknown Non-Blood / Unknown 09/25/2024 3:39 PM CDT 09/25/2024 3:39 PM CDT Narrative [facility] - 09/25/2024 11:54 PM CDT If Albumin to Creatinine Ratio is elevated, consider the following: Elevations seen with incipient nephropathy associated with diabetes mellitus or hypertension. Stress, exercise,hematuria, and urinary tract infection may also produce elevated results. If clinically indicated, confirm with 24 Hour Albumin to Creatinine Ratio. Iris Bertha Brantley DO URINE Final Resu lt Performing Organization Address City/[facility]/ZIP Co de Phone Number [facility] [address] [place] [address], [place] * SCAN-MRI INTERPRETATION (09/24/2024 12:00 AM CDT) Anatomical Region Laterality Modality Other us Scanner OTHER Final Result * (ABNORMAL) HEMOGLOBIN A1C (09/02/2024 9:40 AM CDT) HEMOGLOBIN A1C 6.5(H) <5.7 % [facility] Comment: For someone without known diabetes, [...] CDT Melissa ALBRECHT CHEMISTRY Final Re sult [facility] [address] [place] [address], [facility] [address] * VITAMIN D 25 (DEFICIENCY) (09/02/2024 9:40 AM CDT) VITAMIN D,25-OH,TOTAL,IA 50 30 - 100 ng/mL [facility] Comment: Vitamin D Status 25-OH Vitamin D: Deficiency: <20 ng/mL Insufficiency: 20 - 29 ng/mL Optimal: > or = 30 ng/mL For 25-OH Vitamin D testing on patients on D2-supplementation and patients for whom quantitation of D2 and D3 fractions is required, the [facility]() 25-OH VIT D, (D2,D3), LC/MS/MS is recommended: order code 00634 (patients >2yrs). See Note 1 Note 1 For additional information, please refer to [email or web address] (This link is being provided for informational/ educational purposes only.) Blood BLOOD SPECIMEN / Unknown 09/02/2024 9:40 AM CDT 09/02/2024 9:40 AM CDT Melissa ALBRECHT SEND OUTS Final Re sult Performing Organization Address [facility]/ZIP Co de Phone Number [facility] [address] [place] [address], [facility] [address] [place] [address] * INSULIN (09/02/2024 9:40 AM CDT) INSULIN 13.8 uIU/mL [facility] Comment: Reference Range < or = 18.4 Risk: Optimal < or = 18.4 Moderate NA High >18.4 Adult cardiovascular event risk category cut points (optimal, moderate, high) are based on Insulin Reference Interval studies performed at [facility] in 2021. Blood BLOOD SPECIMEN / Unknown 09/02/2024 9:40 AM CDT 09/02/2024 9:40 AM CDT Melissa ALBRECHT SEND OUTS Final Re sult Performing Organization Address [facility] de Phone Number [facility] [address] [place] [address], [facility] [address] [place] [address] * VITAMIN B12 (09/02/2024 9:40 AM CDT) VITAMIN B12 484 200 - 1,100 pg/mL [facility] Blood BLOOD SPECIMEN / Unknown 09/02/2024 9:40 AM CDT 09/02/2024 9:40 AM CDT Melissa ALBRECHT CHEMISTRY Final Re sult Performing Organization Address [facility]/ZIP Co de Phone Number [facility] [address] [place] [address], [facility] [address] [place] [address] * (ABNORMAL) COMP METABOLIC PANEL (09/02/2024 9:40 AM CDT) GLUCOSE 103(H) 65 - 99 mg/dL [facility] Comment: Fasting reference interval For someone without known diabetes, a glucose value between 100 and 125 mg/dL is consistent with prediabetes and should be confirmed with a follow-up test. UREA NITROGEN (BUN) 14 7 - 25 mg/dL [facility] CREATININE 0.68 0.60 - 1.00 mg/dL [facility] EGFR 92 > OR = 60 mL/min/1. 73m2 [facility] BUN/CREATININE RATIO SEE NOTE: 6 - 22 (calc) [facility] Comment: Not Reported: BUN and [...] ALKALINE PHOSPHATASE 57 37 - 153 U/L [facility] AST 22 10 - 35 U/L [facility] ALT 19 6 - 29 U/L [facility] Blood BLOOD SPECIMEN / Unknown 09/02/2024 9:40 AM CDT 09/02/2024 9:40 AM CDT Melissa ALBRECHT CHEMISTRY Final Re sult [facility] [address] [place] [address], [facility] [address] [place] [address] * XR MAMMO LA BILAT SCREEN (01/08/2024 8:14 AM GRAPHIC DESIGN INTERN) Anatomical Region Laterality Modality BREASTS, Breast Left, Breast Right Bilateral Mammography Impressions 01/09/2024 2:17 PM GRAPHIC DESIGN INTERN There is no radiographic evidence for malignancy. Recommend annual mammograms. MAMMOGRAM ASSESSMENT: ACR 1 Negative PATIENTS: You will also receive a letter with your examination results in an easy to read format. If you have questions about your results, please contact your referring provider. Narrative 01/09/2024 2:17 PM GRAPHIC DESIGN INTERN For Patients: As a result of the Century Cures Act, medical imaging exams and procedure reports are released immediately into your electronic medical record. You may view this report before your referring provider. If you have questions, please contact your health care provider. XR MAMMO LA BILAT SCREEN [[id number]] CLINICAL HISTORY: This is an asymptomatic 73 [...] lt * ANTI HCV (03/08/2023 8:49 AM GRAPHIC DESIGN INTERN) HEPATITIS C ANTIBODY Non-Reacti ve Non-React peter 03/08/2023 5:51 PM GRAPHIC DESIGN INTERN [facility] Comment:Please note, per www .CDC.gov: If a patient is known to be at high risk of HCV infection, or is symptomatic, and the physician's suspicion of HCV infection is high, HCV RNA testing is often employed and is of diagnostic value, even after an initial negative anti-HCV test result. Blood BLOOD SPECIMEN / Unknown Venipuncture / Unknown 03/08/2023 8:49 AM GRAPHIC DESIGN INTERN 03/08/2023 8:54 AM GRAPHIC DESIGN INTERN us Iris Brantley DO SEND OUTS Final Resu lt [facility] [employer] [facility] [address] [place] [address], [place] from Last 3 Months or Most Recently Relevant to Health Maintenance Insurance [facility] MEDICARE ADVANTAGE MR MEDICARE PART A HB ONLY Advance Directives Documents on File Type Date Recorded Patient Director Surgical Expl anation Healthcare Directive 02/12/2023 10:04 AM [...] Code Status Discussion: Not Discussed Care Teams Disbursing Agent Relationship Specialty Start Date End Date Iris Brantley DO [address] [place] [address] PCP - General Family Practice 02/23/21 Melissa Allen PA [address] [place] [address] Physician Hourly Sign Language Interpreter 06/04/[address] [place] [address] Account Technician 09/04/24 Bridget Hair, RN [address] [place] [address] Help Desk Support Specialist 10/13/24 Lana Mgadaleno [address] [place] [address] Complex Care Management Care Guide 11/13/24
[2024-11-17 01:56] VITALS: BP 142/92; PULSE 61; RESP 18
== END 2024-11-17 01:57 | disposition home or self-care (01) ==
PROVIDERS: Emergency Provider Family Medicine; PCP Family Medicine
DX: S23.41XA Sprain of ribs, initial encounter (principal)
CPT/HCPCS: 71101; 99283; 99284; A9270